=== PATIENT | male | born 1945 | race Caucasian/White ===

== ENCOUNTER → 2017-11-15 10:42 | Outpatient (CLI) | payer MEDICARE, OTHER, SELFPAY ==
--- NOTE | 2017-11-15 | DI.CT.S_ITS ---
PROCEDURE: CT CERVICAL SPINE WO CON INDICATIONS: CERVICALGIA TECHNIQUE: Noncontrast 3 mm thick sections acquired from the skull base to the T4 level. Sagittal and coronal reformats were then constructed. For radiation dose reduction, the following was used: automated exposure control, adjustment of mA and/or kV according to patient size. COMPARISON: None. FINDINGS: Image quality: Excellent. Bones: No fractures or dislocations. Visualized superior ribs are intact. There is straightening of the cervical curvature. There is trace anterolisthesis of C3 on C4, C4 on C5, trace retrolisthesis of C5 on C6, as well as fusion appearance is present at C6-7. Significant disc space narrowing is present at C4-5, C5-6. Multilevel disc bulges are present throughout the cervical spine. There is mild to moderate spinal stenosis at C3-4, moderate C4-5, mild C5-6, C6-7. Severe bilateral foraminal narrowing is present at C3-4, severe right, moderate to severe left C4-C5, severe right, moderate to severe left C5-6, moderate to severe right, moderate left C6-7. Prominent uncovertebral hypertrophy is present. Soft tissues: Prevertebral soft tissues are normal in thickness. No paravertebral hematomas. No apical pneumothoraces. IMPRESSION: 1. Significant multilevel degenerative changes as above. 2. Multilevel severe foraminal narrowing secondary to uncovertebral arthropathy. 3. Most prominent spinal stenosis is present at C4-5 secondary to disc bulge as well as trace retrolisthesis. Dictated by: Sindhu Abbasi M.D. on 11/15/2017 at 16:19 Approved by: Sindhu Abbasi M.D. on 11/15/2017 at 16:24
== END ==
PROVIDERS: Family Provider Family Medicine; Visit Provider Pharmacist
DX: M50.221 Other cervical disc displacement at C4-C5 level (principal); M48.02 Spinal stenosis, cervical region; M47.812 Spondylosis without myelopathy or radiculopathy, cervical region
CPT/HCPCS: 72125

== ENCOUNTER → 2018-03-18 10:48 | Outpatient (CLI) | payer MEDICARE, OTHER, SELFPAY ==
--- NOTE | 2018-03-18 | DI.RAD.S_ITS ---
PROCEDURE: XR CHEST 2V INDICATIONS: DYSPENEA TECHNIQUE: 2 views of the chest were acquired. COMPARISON: [facility], CT, CT CERVICAL SPINE WO CON, 11/15/2017, 11:05. [facility], CR, CHEST 2 VIEW, 09/30/2013, 16:41. [facility], CR, CHEST 1 VIEW, 12/04/2006, 2:51. FINDINGS: Surgical changes and devices: Pacemaking/defibrillation device and single lead in expected position, previously present. Lungs and pleura: No pleural effusions or pneumothorax. Lungs are clear. Mediastinum: Mediastinal contours are normal. Heart size is normal. Bones and chest wall: No suspicious bony abnormalities. Soft tissues appear unremarkable. IMPRESSION: Pacemaking/defibrillation device and lead normal, no CHF found. Mildly reduced inspiratory volume. Dictated by: Binh Meadows M.D. on 03/18/2018 at 11:21 Approved by: Binh Meadows M.D. on 03/18/2018 at 11:22
== END ==
PROVIDERS: PCP Family Medicine; Visit Provider Family Medicine
DX: R06.00 Dyspnea, unspecified (principal); Z95.810 Presence of automatic (implantable) cardiac defibrillator
CPT/HCPCS: 71046

== ENCOUNTER → 2019-04-16 10:17 | Outpatient (CLI) | payer MEDICARE, OTHER, SELFPAY ==
--- NOTE | 2019-04-16 | DI.RAD.S_ITS ---
PROCEDURE: XR CHEST 2V INDICATIONS: COUGH TECHNIQUE: 2 views of the chest were acquired. COMPARISON: [facility], , XR CHEST 2V, 03/18/2018, 11:05. [facility], , CHEST 2 VIEW, 09/30/2013, 16:41. FINDINGS: Surgical changes and devices: A pacemaking device/defibrillation device and single lead appears stable over time. Lungs and pleura: Lungs are clear considering reduced inspiratory volume on the right. No pleural effusions or pneumothorax. Mediastinum: Mediastinal contours are normal. Heart size is normal. Bones and chest wall: No suspicious bony abnormalities. Soft tissues appear unremarkable. IMPRESSION: Mild chronic elevation of the right hemidiaphragm, expected lung base atelectasis is mild. Pacemaking/defibrillation device and single lead appears normal. Source of persistent cough is not found. Dictated by: Binh Meadows M.D. on 04/16/2019 at 10:33 Approved by: Binh Meadows M.D. on 04/16/2019 at 10:34
== END ==
PROVIDERS: Family Provider Family Medicine; PCP Family Medicine; Referring Provider Family Medicine; Visit Provider Family Medicine
DX: R05 Cough (principal); R06.00 Dyspnea, unspecified; Z87.01 Personal history of pneumonia (recurrent); Z95.810 Presence of automatic (implantable) cardiac defibrillator
CPT/HCPCS: 71046

== ENCOUNTER → 2020-05-19 09:34 | Outpatient (CLI) | payer MEDICARE, OTHER, SELFPAY ==
[2020-05-19 11:17] LABS: COVID19 -Nasal RAPID Negative (Negative)
== END ==
PROVIDERS: Visit Provider Student in an Organized Health Care Education/Training Program
DX: Z20.822 Contact with and (suspected) exposure to COVID-19 (principal)
CPT/HCPCS: 87635; C9803

== ENCOUNTER 2020-05-21 15:13 | Day surgery (SDC) | payer MEDICARE, OTHER, SELFPAY ==
--- NOTE | 2020-05-21 | PATH_ITS ---
[facility] Accession Number: [id number] . 01 Material submitted: . colon - 4MM TRANSVERSE COLON POLYP . 02 Diagnosis: Transverse Colon, 4 mm Polyp, Biopsy: Tubular adenoma. MRV 05/26/2020 1127 Local . 02 Electronically signed: . Mary Dunbar MD, Pathologist NPI- [id number] . 01 Gross description: . 4MM TRANSVERSE COLON POLYP: Received in formalin is 1 fragment(s) of cohen, soft tissue measuring 0.4 x 0.4 x 0.3 cm submitted entirely in 1 cassette(s) /SUSHIL 05/25/2020 0125 Local . 02 Pathologist provided ICD-10: D12.3 . 02 CPT . 573544 Performed at: 01 [facility] [address] [facility], [place], [place] [id number] MD Markos Norris MD Phone: [phone] Performed at: 02 [facility] [address] [place], [place] [id number] MD Mary Dunbar MD Phone: [phone]
--- NOTE | 2020-05-21 12:14 | PM.HP.1 ---
History of Present Illness History of Present Illness Date Patient Seen: 05/21/20 Chief complaint: [facility] [place]ative: 73 Years Old Male seen today for consideration of a diagnostic colonoscopy. Reports that he has had diarrhea for the last 5 years. Stools are loose and runny and sometimes have streaks of blood in them. Has approximately 6 stools per day. Denies abdominal pain but does have occasional cramps. He did have a very mild normocytic/normochromic anemia that has been present on/off for the past 5 years. CBC on 09/22/2019 revealed a hemoglobin/hematocrit of 12.5/36.7. Most recent CBC on 05/06/20 was normal. There's been no family history of colon cancer or colon polyps. Reports that he is overdue for his colonoscopy, last one in 2010 significant for diverticulosis and one small polypoid lesion that was benign. Overall health issues have been stable, including no major cardiac events for at least 6 weeks. He is on Effient and aspirin for stable coronary artery disease and ischemic cardiomyopathy. He had an ICD placed in 2013. Past Medical History: PNEUMONIA, COMMUNITY ACQUIRED DERMATITIS, CONTACT History of broken nose DIABETES MELLITUS NEUROPATHY CORONARY ARTERY DISEASE CHF, SYSTOLIC, CHRONIC HYPERTENSION HYPERLIPIDEMIA SYNCOPE BACK PAIN Knee pain, right DERANGEMENT OF ANTERIOR HORN OF MEDIAL MENISCUS Foot pain, chronic Toe infection ESOPHAGEAL REFLUX GASTRIC ULCER Gout Prostatism Chronic diarrhea SLEEP APNEA COLONIC POLYPS Past Surgical History: WI x 2 with stent placement each time x 2, restenting needed (2006, 2012) Appendectomy Tonsillectomy Cholecystectomy Colonoscopy Cervical fusion Shoulder surgery, bilateral Rotator cuff surgery, bilateral knee surgery, bilateral Defibrillator Family History: Reviewed history from 12/07/2013 and no changes required: Father: age 84 - Heart Disease Mother: age 79 - Hepatitis C, Osteoporosis Siblings: Social History: Reviewed history from 12/07/2013 and no changes required: Marital Status: - Restaurant Area Director Occupation: [employer] Education: 14 years Meds Home Medications and Allergies Home Medications Medication Instructions Recorded Confirmed Type CHOLECALCIFEROL (VITAMIN D3) 1 tab PO DAILY #0 12/04/06 05/21/20 History (Vitamin D3) MULTIVITAMIN (Multivitamin 1 spray PO DAILY #0 12/04/06 05/21/20 History -) POTASSIUM CHLORIDE (K-Dur) 20 meq PO DAILY #0 12/04/06 05/21/20 History VITAMIN C - 1,000 mg PO DAILY #0 12/04/06 05/21/20 History (VITAMIN C) allopurinol 300 mg PO DAILY 05/21/20 05/21/20 History carvedilol 6.25 mg PO BID 05/21/20 05/21/20 History empagliflozin [Jardiance] 10 mg PO DAILY 05/21/20 05/21/20 History glimepiride 4 mg PO DAILY 05/21/20 05/21/20 History insulin glargine [Lantus U-100 55 unit SUBCUT BID 05/21/20 05/21/20 History Insulin] prasugrel 10 mg PO DAILY 05/21/20 05/21/20 History spironolactone 25 mg PO DAILY 05/21/20 05/21/20 History tizanidine 2 mg PO TID PRN 05/21/20 05/21/20 History Allergies Allergy/AdvReac Type Severity Reaction Status Date / Time No Known Drug Allergies Allergy Verified 05/21/20 16:10 Review of Systems Review of Systems ROS: Yes All systems reviewed with the patient and are negative except as otherwise documented Exam Narrative Exam Narrative: General: well developed, well nourished, in no acute distress, Head: normocephalic and atraumatic, Lungs: normal respiratory effort, clear bilaterally to auscultation, no wheezes rales or rhonchi. Heart: normal rate and regular rhythm, no murmurs, rubs, gallops, or clicks, Abdomen: abdomen soft and non-tender without masses, organomegaly, or abdominal wall hernias, bowel sounds positive. Skin: intact without suspicious lesions or rashes, Psych: alert and cooperative; normal mood and affect; normal attention span and concentration; cognition, remote and recent memory appear to be intact, Assessment & Plan Assessment & Plan narrative: 1. Chronic diarrhea 2. Blood in stool, occult 3. Screening for colon cancer 4. Coronary artery disease, on anticoagulants Plan for colonoscopy. The nature and character of the procedure as well as anticipated results were discussed. The possibility of not completing the procedure was also discussed. Possible complications including aspiration pneumonia, bleeding, perforation and reaction to medications either for sedation or preparation and missed lesions were discussed. Questions were answered and proceeding to the colonoscopy was elected. Informed consent signed. Patient has been cleared by Dr. Randy Chin, cardiology, to stop his effient and aspirin 7 days prior to procedure with no bridging. Due to patient's comorbidities and ASA 3 status, will consult MD anesthesia for this procedure. I sincerely appreciate the referral allowing me to participate in this patient's care. Please contact me with any questions or concerns.
--- NOTE | 2020-05-21 12:21 | PM.OP.ENDO ---
Operative Date/Time/Diagnoses Date of procedure: 05/21/20 Procedure Notes SCOAP/Timeout: 4:31 p.m. Procedure in detail: ENDOSCOPIST: Fabiola Becerril MD Anesthesiologist: Dr. Arana Sedation start time: 4:32 p.m. Sedation end time: 4:44 p.m. PROCEDURE: Colonoscopy with biopsy INDICATIONS: 1. Chronic diarrhea 2. Blood in stool, occult 3. Colon cancer screening 4. History of coronary artery disease, on anticoagulation MEDICATION: Levsin 0.125 mg sublingual, incremental doses of Versed and fentanyl until appropriate level sedation achieved. ASA CLASS: 3 CECAL WITHDRAWAL TIME: 12 minutes COMPLICATIONS: None. EXTENT OF PROCEDURE: Cecum. QUALITY OF PREP: Good with portions of liquid stool. PROCEDURE: Prior to insertion of the colonoscope, a digital rectal examination was accomplished with circumferential palpation of the distal rectal mucosa without significant findings being noted. The high-definition colonoscope was passed into the rectum in the usual fashion and advanced over to the cecum without difficulty. The ileocecal valve, appendiceal stoma, and medial wall all could be inspected and no abnormalities were seen. ASCENDING COLON: As the colonoscope was withdrawn, care was taken to expose and inspect the haustral folds and minor diverticulosis was noted. HEPATIC FLEXURE: Normal, no polyps, diverticula or other abnormalities. TRANSVERSE COLON: 4 mm polyp x1, removed with cold biopsy forceps. Otherwise, normal, no diverticula or other abnormalities. DESCENDING COLON: Moderate diverticulosis,, normal, no polyps or other abnormalities. SIGMOID COLON: Moderate diverticulosis,, normal, no polyps or other abnormalities. RECTUM: Normal. J maneuver was produced. There was no significant perianal disease. The J maneuver was broken. The remainder of the rectum was inspected and there was no external hemorrhoid disease. The scope was withdrawn. IMPRESSION: 1. Transverse polyp x1, 4 mm, removed with cold biopsy forceps 2. Diverticulosis, pancolonic PLAN: 1. Follow-up in clinic status post pathology results. The possibility of a missed lesion including a malignancy has been discussed with the patient previously. Potential alarm symptoms have been discussed and should be reported immediately.
[2020-05-21 15:40] VITALS: BMI 32.2
[2020-05-21] MEDS: HYOSCYAMINE 0.125 MG TABLET PO (16:16)
[2020-05-21] MEDS: LACTATED RINGERS 1,000 ML 200 ML IV (16:17)
[2020-05-21 17:05] VITALS: BP 121/63; BP 96/52; PULSE 74; PULSE 75; RESP 16; RESP 20; TEMP 36.2; O2SAT 96
[2020-05-21 17:13] VITALS: BP 121/68; PULSE 74; RESP 14; O2SAT 97
[2020-05-21 17:18] VITALS: BP 129/72; PULSE 76; RESP 14; O2SAT 97
[2020-05-21 17:20] VITALS: BP 136/68; PULSE 72; RESP 16; TEMP 36.2; O2SAT 97
== END 2020-05-21 17:37 | disposition home or self-care (01) ==
PROVIDERS: Referring Provider Student in an Organized Health Care Education/Training Program; Visit Provider Student in an Organized Health Care Education/Training Program
PROC: 0DJD8ZZ Inspection of Lower Intestinal Tract, Via Natural or Artificial Opening Endoscopic (ICD-10-PCS; CPT 45378; principal; 2020-05-21 16:15)
DX: K92.1 Melena (principal); K52.9 Noninfective gastroenteritis and colitis, unspecified; E11.41 Type 2 diabetes mellitus with diabetic mononeuropathy; G47.33 Obstructive sleep apnea (adult) (pediatric); E66.9 Obesity, unspecified; I25.5 Ischemic cardiomyopathy; I10 Essential (primary) hypertension; I25.10 Atherosclerotic heart disease of native coronary artery without angina pectoris; Z79.01 Long term (current) use of anticoagulants; Z79.4 Long term (current) use of insulin; Z95.0 Presence of cardiac pacemaker; K57.30 Diverticulosis of large intestine without perforation or abscess without bleeding; D12.3 Benign neoplasm of transverse colon
CPT/HCPCS: 45380

== ENCOUNTER → 2020-07-01 09:10 | Outpatient (CLI) | payer MEDICARE, OTHER, SELFPAY ==
--- NOTE | 2020-07-01 | DI.CT.S_ITS ---
PROCEDURE: CT LUMBAR SPINE WO CON INDICATIONS: STENOSIS TECHNIQUE: Noncontrast 3 mm thick sections acquired from the T12 level to the sacrum. Sagittal and coronal reformats were constructed. For radiation dose reduction, the following was used: automated exposure control. COMPARISON: [facility], CR, XR LUMBAR SPINE MIN 4V, 07/01/2020, 9:21. [facility], CT, L-SPINE WITHOUT CONTRAST, 02/08/2016, 10:10. Lumbar MRI examinations, 12/30/2012 and 09/17/2008. FINDINGS: Image quality: Excellent. Bones: No acute vertebral body compression fractures. No suspicious lytic or blastic bony lesions. No pars defects. Mild levoconvex scoliotic curvature is noted. Mild retrolisthesis is seen at the L3-L4 level. This patient has transitional lumbar anatomy. For the purposes of this examination, the level with the most inferior rudimentary disc is considered to be L5-S1. By this numbering scheme, the L5 level is transitional and highly sacralized. Also by this numbering scheme, no ribs are seen associated with the T12 level. This numbering scheme is chosen to remain consistent with prior reports. T12-L1: The disc height is relatively well preserved. Bridging anterior osteophytes are seen. Calcification can be seen within the disc level itself. No significant neural foraminal or central canal narrowing can be seen. When comparison is made with the prior examination, these findings are similar. L1-L2: There is mild loss of disc height. Mild to moderate disc bulge is seen. Bridging endplate osteophytes are seen, which can be seen anteriorly as well as on the left side. There is mild bilateral neural foraminal narrowing seen. Mild central canal narrowing is seen. When comparison is made with the prior examination, these findings are similar. L2-L3: At least moderate loss of disc height is seen. Bridging endplate osteophytes are seen, which are most prominent on the right side. No significant neural foraminal or central canal narrowing can be seen. Stable from the prior study. L3-L4: Mild loss of disc height is seen. Bridging endplate osteophytes are seen anteriorly as well as on the left and right sides. Bridging endplate osteophytes can also be seen posteriorly. At least moderate disc bulge is seen, which is eccentric to the right side. There is moderate to severe bilateral neural foraminal narrowing seen, right worse than left. At least moderate central canal narrowing is seen at this level. Compared to the 2016 images, these imaging findings are similar. L4-L5: The disc height is well preserved. Moderate disc bulge is seen, which is eccentric to the right. Partially bridging endplate osteophytes are seen on the right and on the left. There is moderate to prominent right-sided and at least moderate left-sided facet hypertrophy seen. There is moderate to severe bilateral neural foraminal narrowing seen, right worse than left. At least moderate central canal narrowing can be seen at this level. These imaging findings are similar to the prior 2016 images. L5-S1: There is a transitional, rudimentary disc seen at this level. Mild to moderate facet hypertrophy is seen. There is mild right-sided and moderate left-sided neural foraminal narrowing seen. No significant central canal narrowing is seen. Stable from the prior study. Soft tissues: No retroperitoneal masses or hematomas. Visualized aorta is normal in caliber. Atherosclerotic calcification is noted. AICD leads are seen on the dental front office assistant image. Cholecystectomy clips are seen. A water density cyst measuring 3.5 cm can be seen along the posterior medial aspect of the right kidney. IMPRESSION: Multiple levels of degenerative change are seen, which are similar to the prior 2016 images. Incidental note is made of: Transitional lumbar anatomy Water density right renal cyst AICD leads Cholecystectomy Dictated by: Los Allan M.D. on 07/01/2020 at 9:57 Transcribed by: CALLY on 07/01/2020 at 10:01 Approved by: Los Allan M.D. on 07/01/2020 at 10:25
--- NOTE | 2020-07-01 | DI.RAD.S_ITS ---
PROCEDURE: XR LUMBAR SPINE MIN 4V INDICATIONS: LOW BACK PAIN TECHNIQUE: 4 views of the lumbar spine were acquired, including flexion and extension views. COMPARISON: [facility], MR, L-SPINE WITHOUT CONTRAST, 12/30/2012, 7:59. [facility], MR, L-SPINE WITHOUT CONTRAST, 09/17/2008, 7:37. [facility], CT, CT LUMBAR SPINE WO CON, 07/01/2020, 9:26. [facility], CT, L-SPINE WITHOUT CONTRAST, 02/08/2016, 10:10. FINDINGS: Bones: This patient has transitional lumbar anatomy. For the purposes of this examination, the level with the most inferior rudimentary disc is considered to be L5-S1. By this numbering scheme, the L5 level is transitional and highly sacralized. By this numbering scheme, no definite ribs are seen associated with the L1 level. This numbering scheme is chosen to remain consistent with the prior reports. 5 nonrib-bearing vertebrae are present. No vertebral body compression fractures. No suspicious bony lesions. Minimal to mild levoconvex scoliotic curvature is seen. On the neutral image, there is mild retrolisthesis seen at L3-L4 and L5-S1. On flexion and extension views, there is highly limited range of motion observed, without abnormal subluxation. There is moderate disc space narrowing seen at L2-L3 and L3-L4. A transitional, rudimentary disc can be seen at L5-S1. There are bridging anterior osteophytes seen at least at T10-T11, T11-T12, T12-L1, and at L2-L3. Bridging endplate osteophytes are seen on the left side at T12-L1 and at L1-L2. Bridging endplate osteophytes are seen on the right and on the left at L2-L3 and L3-L4. Lower lumbar spine facet arthropathy is seen. Soft tissues: Overlying bowel gas pattern is normal. No suspicious soft tissue calcifications. Atherosclerotic calcification is noted. Cholecystectomy clips are seen. IMPRESSION: Highly limited range of motion, without abnormal subluxation. Transitional lumbar anatomy. Multiple levels of degenerative change can be seen by plain film. Dictated by: Los Allan M.D. on 07/01/2020 at 10:12 Approved by: Los Allan M.D. on 07/01/2020 at 10:17
== END ==
PROVIDERS: PCP Family Medicine; Referring Provider Orthopaedic Surgery Orthopaedic Surgery of the Spine; Visit Provider Orthopaedic Surgery Orthopaedic Surgery of the Spine
DX: M51.36 Other intervertebral disc degeneration, lumbar region (principal); M48.061 Spinal stenosis, lumbar region without neurogenic claudication; M47.816 Spondylosis without myelopathy or radiculopathy, lumbar region; M54.5 Low back pain
CPT/HCPCS: 72110; 72131

== ENCOUNTER → 2020-09-29 09:11 | Outpatient (CLI) | payer MEDICARE, OTHER, SELFPAY ==
--- NOTE | 2020-09-29 | DI.NM.S_ITS ---
PROCEDURE: NM BONE SPECT RADIOPHARMACEUTICAL: 20.8 mCi Tc-99m MDP IV. INDICATIONS: Other intervertebral disc degeneration, lumbar region TECHNIQUE: Delayed bone scintigrams were obtained of the region of interest 3-4 hours after intravenous administration of Tc-99m MDP. Additional tomographic (SPECT) imaging was performed and displayed in axial, coronal, and sagittal planes. COMPARISON: MR, L-SPINE WITHOUT CONTRAST, 12/30/2012, 7:59. CT, L-SPINE WITHOUT CONTRAST, 02/08/2016, 10:10. [facility], CT, CT LUMBAR SPINE WO CON, 07/01/2020, 9:26. FINDINGS: Delayed planar images, as well as SPECT images of the lumbar spine were obtained. There are foci of increased uptake in the lower costovertebral joints bilaterally, likely secondary to consistent with costovertebral arthritis. Low-level increased activity is seen in lumbar spine, most pronounced at the L1-L2 and L2-L3, consistent with degenerative disc and facet disease. Increased periarticular activity at the SI joints bilaterally is consistent with osteoarthritic change. IMPRESSION: 1. 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 2. Degenerative disc and facet disease in lumbar spine, most pronounced at L1-L2 and L2-L3. Dictated by: Nisha Macario M.D. on 09/29/2020 at 16:15 Approved by: Nisha Macario M.D. on 09/29/2020 at 17:34
== END ==
PROVIDERS: PCP Family Medicine; Referring Provider Orthopaedic Surgery Orthopaedic Surgery of the Spine; Visit Provider Orthopaedic Surgery Orthopaedic Surgery of the Spine
DX: M51.36 Other intervertebral disc degeneration, lumbar region (principal); M47.896 Other spondylosis, lumbar region
CPT/HCPCS: 78305; A9503

== ENCOUNTER 2021-04-08 08:33 | Outpatient (CLI) | payer MEDICARE, OTHER, SELFPAY ==
--- NOTE | 2021-04-08 | DI.CT.S_ITS ---
PROCEDURE: CT LUMBAR SPINE W CON INDICATIONS: pain TECHNIQUE: After the intrathecal administration of 15 mL intrathecal contrast, 3 mm thick sections acquired from T12 to the sacrum. Sagittal and coronal reformats were then constructed. For radiation dose reduction, the following was used: automated exposure control. COMPARISON: [facility], CT, CT THORACIC SPINE W CON, 04/08/2021, 9:21. [facility], RF, [place] INJECT SPINE FOR CT MYELO, 04/08/2021, 9:55. FINDINGS: Image quality: Excellent. Bones: Vertebral body height, alignment and bone mineralization within normal limits. Transitional anatomy noted. There is lumbarization of the S1 vertebral body. There are 12 pairs of ribs associated with the thoracic vertebrae, and 5 lumbar type vertebrae. This numbering system is different from the prior exams, but consistent with the patient's anatomy. There is partial subdural collection of contrast extending from through L3 without significant compression of the nerve roots. Conus terminates at the L1-2 level Soft tissues: No retroperitoneal masses. Visualized aorta demonstrates normal caliber. T12-L1: Disc space narrowing present. No central or foraminal stenosis. No disc bulge. L1-L2: Disc space narrowing and anterior osteophytes present. No disc bulge, central or foraminal stenosis. L2-L3: Disc space narrowing with circumferential disc bulge and anterior osteophytes noted. Mild central stenosis and moderate bilateral foraminal stenosis present. L3-L4: Disc space narrowing with circumferential disc bulge noted without central stenosis. No foraminal stenosis. L4-L5: Disc space narrowing with circumferential disc bulge and hypertrophic facet joints combined with ligamentum flavum laxity to result in effacement of the right lateral recess. Mild central stenosis and severe right foraminal stenosis. Moderate left foraminal stenosis. L5-S1: Disc space narrowing with circumferential disc bulge, hypertrophic facet joints and ligamentum flavum laxity results in moderate central stenosis. There is effacement of both lateral recesses as well as severe right and left foraminal stenosis. Miscellaneous: Nerve roots appear unremarkable throughout. No nerve root clumping to suggest arachnoiditis. IMPRESSION: 1. Transitional anatomy. There are 12 thoracic vertebrae associated with ribs and 5 lumbar type vertebral bodies. There is lumbarization of the S1 vertebral body. Please note, this numbering convention is different than the prior exams, but consistent with patient's anatomy. 2. Multilevel degenerative disc disease and arthropathy results in moderate central stenosis at L5-S1 and severe foraminal stenosis on the right at L4-5 and bilaterally at L5-S1 Approved by: Randall Cazares M.D. on 04/08/2021 at 16:05
--- NOTE | 2021-04-08 | DI.RAD.S_ITS ---
PROCEDURE: [place] INJECT SPINE FOR CT MYELO INDICATIONS: SPONDYLITIS COMPARISON: None. TECHNIQUE: The indications, alternatives, benefits, risks and complications of the procedure were explained to the patient. Written informed consent was obtained and placed in the chart. The patient was placed in a prone position on the fluoroscopy table, and a level was chosen for percutaneous access under fluoroscopic guidance. The skin was prepped and draped in a sterile fashion. After local anaesthetic, a spinal needle was then used to enter the intrathecal space, with return of clear cerebrospinal fluid. 1 mL of Isovue M-300 were administered intrathecally under fluoroscopic visualization. The needle was then withdrawn, and a bandage applied to the puncture site. Fluoroscopic spot films were then acquired in various positions. FINDINGS: Standing frontal, lateral, and oblique views demonstrate no significant central canal stenoses. Access level: L2-L3 Medications: 1% lidocaine for local anaesthesia. Complications: None. Patient was transferred to CT for subsequent CT myelogram. IMPRESSION: Successful fluoroscopically guided administration of iodinated contrast into the lumbar spine central canal for CT myelogram. Dictated by: Jackeline Loving MD, PhD on 04/08/2021 at 17:08 Approved by: Jackeline Loving MD, PhD on 04/08/2021 at 17:08
[2021-04-08 08:10] VITALS: BP 147/77; PULSE 74; RESP 20; TEMP 36.4; O2SAT 99; BMI 26.7
[2021-04-08 09:39] VITALS: BP 127/69; PULSE 68; RESP 11; TEMP 36.7; O2SAT 99
--- NOTE | 2021-04-08 09:42 | DI.CT.S_ITS ---
PROCEDURE: CT THORACIC SPINE W CON INDICATIONS: pain TECHNIQUE: After the administration of 10 mL intrathecal contrast, 3 mm thick sections acquired through the region of interest in the thoracic spine. Sagittal and coronal reformats were then constructed. For radiation dose reduction, the following was used: automated exposure control. COMPARISON: None. FINDINGS: Vertebral body height, alignment and interspacing is well maintained. Normal bone mineralization present. No fracture or malalignment. Flowing fused anterior osteophytes noted in the lower thoracic spine could reflect diffuse idiopathic skeletal hyperostosis Paraspinal soft tissues are unremarkable. Incidental note is made of cholecystectomy clips. At T5-6 and T6-7, small paracentral right osteophytes result in mild central stenosis without cord deformation. At T7-8, focal central osteophyte indents the ventral surface of the thecal sac results in mild central stenosis. No cord deformation. No foraminal stenosis. At the remaining levels, no central or foraminal stenosis. IMPRESSION: 1. Mild degenerative disc disease results in mild central stenosis at T5-6, T6-7 and T7-8. Approved by: Randall Cazares M.D. on 04/08/2021 at 15:44
--- NOTE | 2021-04-08 09:44 | SUR.PHASEI ---
Received patient from CT scan and s/p myleogram; GCS 15; lying supine as instructed; c/o low back pain 6/10; no numbness or tingling per patient. VSS. Apple juice provided; call light in reach. Advised patient that he would need to lie flat for 4 hours until discharge at 1330. V/U.
--- NOTE | 2021-04-08 09:45 | DI.CT.S_ITS ---
PROCEDURE: CT CERVIAL SPINE W CON INDICATIONS: pain TECHNIQUE: After the administration of 10mL intrathecal contrast, 3 mm thick sections acquired from the skull base to the T1 level. Sagittal and coronal reformats were then constructed. For radiation dose reduction, the following was used: automated exposure control, adjustment of mA and/or kV according to patient size. COMPARISON: None. FINDINGS: Image quality: Excellent. Bones and alignment: Vertebral body heights and alignment is within normal limits. Bone mineralization and craniovertebral relationships are normal. There is healed interbody fusion at C6-7 without instrumentation. Soft tissues: No paraspinal masses. Prevertebral soft tissues are normal in thickness. Visualized neck vasculature appears normal in size. C2-C3: Disc space narrowing with posterior osteophyte results in mild central stenosis. No foraminal stenosis. Facet ankylosis noted on the left. C3-C4: Disc space narrowing posterior disc osteophyte complex and hypertrophic facet joints results in mild central stenosis without cord deformation.. Moderate bilateral foraminal stenosis. C4-C5: Mild disc space narrowing with posterior disc osteophyte complex and hypertrophic facet joints noted. Mild bilateral foraminal stenosis. C5-C6: A disc space narrowing posterior osteophyte is present with mild central stenosis. No foraminal stenosis. C6-C7: Interbody fusion present. No central or some foraminal stenosis. C7-T1: Disc height is maintained. No central or foraminal stenosis. Miscellaneous: Visualized intracranial structures appear unremarkable. IMPRESSION: Multilevel degenerative disc disease and arthropathy results in varying degrees of central and foraminal stenosis including moderate bilateral foraminal stenosis at C3-4 and multilevel mild stenosis central stenosis without cord deformation. Approved by: Randall Cazares M.D. on 04/08/2021 at 16:21
[2021-04-08 10:35] LABS: Hematocrit 42.9 % (41-53); Hemoglobin 14.4 g/dL (13.5-17.5); Platelet Count 261 X10^3/uL (150-400)
[2021-04-08 10:36] LABS: INR 0.9 (0.9-1.3); PTT Partial Thromboplastin Tim 30 SECONDS (26.4-36.2); Prothrombin Time 10.4 SECONDS (10.1-12.7)
[2021-04-08 10:46] VITALS: BP 106/59; PULSE 69; RESP 16; O2SAT 98
[2021-04-08 11:52] VITALS: BP 116/72; PULSE 65; RESP 11; O2SAT 97
--- NOTE | 2021-04-08 11:53 | SUR.PHASEII ---
Patient resting quietly, still supine; vss; blood sugar 121. No needs voiced at this time.
[2021-04-08 12:48] VITALS: BP 126/70; PULSE 59; RESP 20; TEMP 36.4; O2SAT 98
--- NOTE | 2021-04-08 12:49 | SUR.PHASEII ---
Patient remains stable; vss; pain 4/10 with movement; no needs voiced at this time; denies any numbness or tingling.
[2021-04-08 13:30] VITALS: BP 120/71; PULSE 69; RESP 16; TEMP 36.4; O2SAT 99
== END 2021-04-08 13:45 | disposition home or self-care (01) ==
LOC: OR 08:35
PROVIDERS: PCP Family Medicine; Referring Provider Orthopaedic Surgery; Visit Provider Orthopaedic Surgery
DX: M48.062 Spinal stenosis, lumbar region with neurogenic claudication (principal); M45.7 Ankylosing spondylitis of lumbosacral region; M51.36 Other intervertebral disc degeneration, lumbar region; Z98.1 Arthrodesis status; G97.1 Other reaction to spinal and lumbar puncture; M46.02 Spinal enthesopathy, cervical region
CPT/HCPCS: 36415; 62284; 72126; 72129; 72132; 77003; 82962; 85014; 85018; 85049; 85610; 85730

== ENCOUNTER → 2021-09-27 12:09 | Outpatient (CLI) | payer MEDICARE, OTHER, SELFPAY ==
--- NOTE | 2021-09-27 12:12 | DI.US.S_ITS ---
PROCEDURE: US ABDOMEN LIMITED INDICATIONS: RUQ PAINLESS BULGE X 2 YEARS TECHNIQUE: Real-time scanning was performed of the abdominal and retroperitoneal organs, with image documentation. COMPARISON: None. FINDINGS: Liver: The liver measures 18.2 cm and demonstrates markedly increased echogenicity. Miscellaneous: No free abdominal fluid. There is no right upper quadrant abdominal wall hernia or other abnormality in the region palpated by the patient. IMPRESSION: 1. Increased hepatic echogenicity noted likely related to fatty infiltration of the liver but other sources of hepatocellular disease cannot be excluded. 2. No sonographic evidence for abdominal wall hernia or other mass. Dictated by: Delilah Rivera M.D. on 09/27/2021 at 16:08 Approved by: Delilah Rivera M.D. on 09/27/2021 at 16:10
== END ==
PROVIDERS: PCP Family Medicine; Referring Provider Family Medicine; Visit Provider Family Medicine
DX: K43.9 Ventral hernia without obstruction or gangrene (principal); R10.31 Right lower quadrant pain
CPT/HCPCS: 76705

== ENCOUNTER → 2021-10-06 09:06 | Outpatient (CLI) | payer MEDICARE, OTHER, SELFPAY ==
--- NOTE | 2021-10-06 09:08 | DI.US.S_ITS ---
PROCEDURE: US ARTERIAL DUPLEX LE BI INDICATIONS: Hyperlipidemia, unspecified TECHNIQUE: Color and pulse Doppler interrogation was performed of both lower extremity arterial systems, with image documentation. COMPARISON: None. FINDINGS: Right lower extremity: Common femoral artery: 112 cm/sec, with triphasic flow. Deep femoral artery: 59 cm/sec, with triphasic flow. Proximal superficial femoral artery: 94 cm/sec, with triphasic flow. Mid superficial femoral artery: 80 cm/sec, with triphasic flow. Distal superficial femoral artery: 73 cm/sec, with triphasic flow. Popliteal artery: 56 cm/sec, with triphasic flow. Posterior tibial artery: 123 cm/sec, with triphasic flow. Anterior tibial artery/dorsalis pedis: 94 cm/sec, with triphasic flow. Law-scale imaging description: No hemodynamically significant stenosis. Left lower extremity: Common femoral artery: 104 cm/sec, with triphasic flow. Deep femoral artery: 74 cm/sec, with triphasic flow. Proximal superficial femoral artery: 87 cm/sec, with triphasic flow. Mid superficial femoral artery: 74 cm/sec, with triphasic flow. Distal superficial femoral artery: 74 cm/sec, with triphasic flow. Popliteal artery: 50 cm/sec, with triphasic flow. Posterior tibial artery: 123 cm/sec, with triphasic flow. Anterior tibial artery/dorsalis pedis: A 38 cm/sec, with triphasic flow. Law-scale imaging description: No hemodynamically significant stenosis. IMPRESSION: No hemodynamically significant stenosis of the bilateral lower extremities. Dictated by: Delilah Rivera M.D. on 10/06/2021 at 14:15 Approved by: Delilah Rivera M.D. on 10/06/2021 at 14:19
== END ==
PROVIDERS: PCP Family Medicine; Referring Provider Orthopaedic Surgery; Visit Provider Orthopaedic Surgery
DX: E78.5 Hyperlipidemia, unspecified (principal)
CPT/HCPCS: 93925

== ENCOUNTER → 2021-11-19 10:58 | Outpatient (CLI) | payer MEDICARE, OTHER, SELFPAY ==
--- NOTE | 2021-11-19 | DI.RAD.S_ITS ---
PROCEDURE: XR LUMBAR SPINE MIN 4V INDICATIONS: Low Back Pain TECHNIQUE: 5 views of the lumbar spine were acquired, including bilateral oblique views. COMPARISON: [facility], CR, XR LUMBAR SPINE MIN 4V, 07/01/2020, 9:21. FINDINGS: Bones: This patient has transitional lumbar anatomy. For the purposes of this examination, the level with the last disc space is considered to be L5-S1. By this numbering scheme, no definite ribs are seen associated with the T12 level. The L5 level is transitional and is highly sacralized. No vertebral body compression fractures. No suspicious bony lesions. Minimal levoconvex scoliotic curvature is seen. There is minimal retrolisthesis seen at the L3-L4 level. There is moderate disc space narrowing seen at L2-L3, with [id number] disc space narrowing at L3-L4 and at L4-L5. Moderate to severe disc space narrowing can be seen at L5-S1. Lower lumbar spine facet arthropathy is seen. Numerous levels of bridging endplate osteophytes can be seen. Soft tissues: Overlying bowel gas pattern is normal. No suspicious soft tissue calcifications. An AICD lead can be seen. Cholecystectomy clips are seen. Oblique images: No pars defects. IMPRESSION: Lumbar spine degenerative changes are seen, which are overall worst at L5-S1. Transitional lumbar anatomy. Dictated by: Los Allan M.D. on 11/19/2021 at 18:16 Approved by: Los Allan M.D. on 11/19/2021 at 18:18
== END ==
PROVIDERS: PCP Family Medicine; Referring Provider Orthopaedic Surgery; Visit Provider Orthopaedic Surgery
DX: M47.26 Other spondylosis with radiculopathy, lumbar region (principal); M48.062 Spinal stenosis, lumbar region with neurogenic claudication; M54.50 Low back pain, unspecified; G89.29 Other chronic pain
CPT/HCPCS: 72110

== ENCOUNTER → 2022-03-02 09:43 | Outpatient (ROUT) | payer MEDICARE, OTHER, SELFPAY ==
[2022-03-02 09:51] LABS: Prothrombin Time 11.6 SECONDS (10.1-12.7)
[2022-03-02 09:53] LABS: PTT Partial Thromboplastin Tim 32 SECONDS (26-36)
== END ==
PROVIDERS: PCP Family Medicine; Visit Provider Family Medicine
DX: I25.2 Old myocardial infarction (principal)
CPT/HCPCS: 85610; 85730

== ENCOUNTER → 2022-03-02 13:49 | Outpatient (CLI) | payer MEDICARE, OTHER, SELFPAY ==
--- NOTE | 2022-03-02 | DI.RAD.S_ITS ---
PROCEDURE: XR CHEST 2V INDICATIONS: Chronic systolic (congestive) heart failure TECHNIQUE: 2 views of the chest were acquired. COMPARISON: [facility], , XR CHEST 2V, 04/16/2019, 10:12. FINDINGS: Surgical changes and devices: There is a cardiac pacemaker/defibrillator. Lungs and pleura: Chronic right hemidiaphragm elevation. Lungs are clear. No pleural effusions or pneumothorax. Mediastinum: Mediastinal contours are normal. Heart size is normal. Bones and chest wall: No suspicious bony abnormalities. Soft tissues appear unremarkable. IMPRESSION: No acute cardiopulmonary disease. Dictated by: Nisha Macario M.D. on 03/02/2022 at 17:47 Approved by: Nisha Macario M.D. on 03/02/2022 at 17:48
== END ==
PROVIDERS: PCP Family Medicine; Referring Provider Family Medicine; Visit Provider Family Medicine
DX: I50.22 Chronic systolic (congestive) heart failure (principal); I25.2 Old myocardial infarction
CPT/HCPCS: 71046; 85610; 85730

== ENCOUNTER → 2022-04-12 11:28 | Outpatient (CLI) | payer MEDICARE, OTHER, SELFPAY ==
--- NOTE | 2022-04-12 | DI.RAD.S_ITS ---
PROCEDURE: XR LUMBAR SPINE MIN 4V INDICATIONS: Spinal stenosis, lumbar region with neurogenic claudication TECHNIQUE: 5 views of the lumbar spine acquired, including flexion and extension views. COMPARISON: [facility], CR, XR LUMBAR SPINE MIN 4V, 11/19/2021, 11:12. FINDINGS: Bones: 5 nonrib-bearing vertebrae are present. Patient is status post interval fusion of lumbar spine from T12 through L5 level with intervertebral spacer placement at L3-4 level. Loss of disc height and degenerative endplate changes are noted throughout lumbar spine. No acute vertebral body compression fractures. There is straightening of normal lumbar lordosis. 6 mm retrolisthesis of L1 on L2 is seen. No gross hardware loosening or failure. No suspicious bony lesions. Soft tissues: Overlying bowel gas pattern is normal. No suspicious soft tissue calcifications. Flexion/extension: There is decreased range of motion, with preserved lumbar spine alignment. IMPRESSION: 1. Extensive fusion of thoracolumbar spine at T12 through L5 levels. Grade 1 retrolisthesis of L1 on L2. No acute compression fracture. Degenerative disc disease throughout lumbar spine. 2. Decreased range of motion on lateral flexion and extension views with preserved lumbar spine alignment. Dictated by: Chase Vallejo M.D. on 04/12/2022 at 13:03 Approved by: Chase Vallejo M.D. on 04/12/2022 at 13:06
== END ==
PROVIDERS: PCP Family Medicine; Referring Provider Nurse Practitioner; Visit Provider Nurse Practitioner
DX: M47.26 Other spondylosis with radiculopathy, lumbar region (principal); M51.16 Intervertebral disc disorders with radiculopathy, lumbar region; M48.062 Spinal stenosis, lumbar region with neurogenic claudication; Z98.1 Arthrodesis status
CPT/HCPCS: 72110

== ENCOUNTER → 2022-04-13 12:55 | Outpatient (CLI) | payer MEDICARE, OTHER, SELFPAY | PROVIDERS: PCP Family Medicine; Referring Provider Family Medicine; Visit Provider Surgery | DX: E11.628 Type 2 diabetes mellitus with other skin complications (principal); L89.323 Pressure ulcer of left buttock, stage 3 | CPT/HCPCS: 97597; 99203; 99212 ==

== ENCOUNTER → 2022-04-20 13:20 | Outpatient (CLI) | payer MEDICARE, OTHER, SELFPAY | PROVIDERS: PCP Family Medicine; Referring Provider Family Medicine; Visit Provider Surgery | DX: L89.323 Pressure ulcer of left buttock, stage 3 (principal); E11.628 Type 2 diabetes mellitus with other skin complications | CPT/HCPCS: 97597 ==

== ENCOUNTER 2022-04-25 16:36 | Emergency (ER) | payer MEDICARE, OTHER, SELFPAY ==
[2022-04-25] VITALS (21 sets, daily range): BP systolic 113–158; BP diastolic 54–75; PULSE 59–71; RESP 11–25; TEMP 36.2; O2SAT 94–100; BMI 28.2
[2022-04-25 17:03] LABS: Add Manual Diff / Slide Review NO; Basophils Absolute Auto 100 /uL (0-100); Basophils Percent Auto 0.8 % (0-2); Eosinophils Absolute Auto 400 /uL (0-450); Eosinophils Percent Auto 4.5 % (2-4); Hemoglobin 11.9 g/dL (13.5-17.5); Lymphocytes Absolute Auto 3200 /uL (1100-4500); Lymphocytes Percent Auto 35.2 % (25-40); Mean Corpuscular HGB Conc 32.3 % (30-36); Mean Corpuscular Hemoglobin 27.2 PG (26-34); Mean Corpuscular Volume 84.1 fL (80-100); Monocytes Absolute Auto 600 /uL (0-900); Monocytes Percent Auto 6.7 % (3-14); Neutrophils Absolute Auto 4800 /uL (1500-7000); Neutrophils Percent Auto 52.8 % (50-75); Platelet Count 275 X10^3/uL (150-400); Red Cell Distribution Width 14.7 % (11.6-14.8); White Blood Cell Count 9.1 X10^3/uL (4.5-11.0)
[2022-04-25 17:18] LABS: Alanine Aminotransferase 16 IU/L (<50); Albumin 4.3 g/dL (3.5-5.0); Albumin Globulin Ratio 1.2 (1.0-2.8); Alkaline Phosphatase 93 U/L (38-126); Aspartate Aminotransferase 22 IU/L (17-59); BUN Creatinine Ratio 14.8 (6-22); Bilirubin Total 0.7 mg/dL (0.2-1.3); Blood Urea Nitrogen 19 mg/dL (9-20); Calcium 9.3 mg/dL (8.4-10.2); Carbon Dioxide 25 mmol/L (22-32); Chloride 101 mmol/L (98-107); Estimated Glomerular Filt Rate 58 mL/min (>60); Globulin 3.7 g/dL (1.7-4.1); Glucose 138 mg/dL (80-110); HEMOLYSIS < 15 (0-50); Potassium 4.5 mmol/L (3.4-5.1); Sodium 140 mmol/L (137-145)
[2022-04-25] MEDS: MORPHINE 2 MG/ML INJ IV (18:06)
--- NOTE | 2022-04-25 18:25 | ED.FALL ---
HPI - Fall General Chief Complaint: Trauma Stated Complaint: GLF Time Seen by Provider: 04/25/22 17:44 Source: patient and EMS Mode of arrival: EMS History of Present Illness HPI Narrative: Patient is a 76-year-old with recent lumbar fusion, CHF with defibrillator, diabetes, hyperlipidemia, presenting today after a ground level fall. He reports that he had surgery on his back in February she has been wearing a brace he has been ambulating with a walker. He went out on a trail today when he tripped his left foot he could not quite get his balance and fell over to the left side landing on his left shoulder. He denies any hip pain. Now reporting significant back spasm. No head injury no anticoagulation. Denies any neck pain. Related Data Home Medications Medication Instructions Recorded Confirmed CHOLECALCIFEROL (VITAMIN D3) 1 tab PO DAILY ##0 12/04/06 04/08/21 (Vitamin D3) MULTIVITAMIN (Multivitamin 1 spray PO DAILY ##0 12/04/06 04/08/21 -) VITAMIN C - 1,000 mg PO DAILY ##0 12/04/06 04/08/21 (VITAMIN C) allopurinol 300 mg tablet 300 mg PO DAILY 05/21/20 04/08/21 carvedilol 6.25 mg tablet 6.25 mg PO BID 05/21/20 04/08/21 empagliflozin 10 mg tablet 10 mg PO DAILY 05/21/20 04/08/21 (Jardiance) glimepiride 4 mg tablet 4 mg PO DAILY 05/21/20 04/08/21 insulin glargine 100 unit/mL 40 unit SUBCUT BID 05/21/20 04/08/21 subcutaneous cartridge spironolactone 25 mg tablet 25 mg PO DAILY 05/21/20 04/08/21 furosemide 20 mg tablet 20 mg PO DAILY 04/08/21 04/08/21 losartan 25 mg tablet 12.5 mg PO DAILY 04/08/21 04/08/21 metformin 500 mg tablet 500 mg PO BID 04/08/21 04/08/21 Allergies Allergy/AdvReac Type Severity Reaction Status Date / Time No Known Drug Allergies Allergy Unverified 04/25/22 16:40 Review of Systems Review of Systems ROS Unobtainable: All systems reviewed & are unremarkable except as noted in HPI and below Patient History Social History household members: spouse Smoking Status: Former smoker alcohol intake: current Smoking Status: Former smoker alcohol intake frequency: a few times a week Substance Use Type: does not use Exam Initial Vital Signs Initial Vital Signs: Vital Signs Temperature 97.1 F L 04/25/22 16:36 Pulse Rate 68 04/25/22 16:36 Respiratory Rate 25 H 04/25/22 16:36 Blood Pressure 150/70 H 04/25/22 16:36 Pulse Oximetry 98 04/25/22 16:36 Oxygen Delivery Method Room Air 04/25/22 16:36 GENERAL: Alert 76-year-old male appears uncomfortable HEENT: Head atraumatic,EOMI, pupils reactive, face symmetric, moist mucous membranes CARDIOVASCULAR: Regular rate and rhythm without murmurs, rubs or gallops. RESPIRATORY: Breath sounds equal bilaterally, no wheezes rales or rhonchi. ABDOMEN: Soft, nontender. Normoactive bowel sounds all 4 quadrants. No guarding or rebound. EXTREMITIES: Normal range of motion, no clubbing or edema. Neurovascularly intact. Left shoulder deformity distal radial pulse intact Pelvis is stable NEUROLOGICAL: Alert and oriented x4 SKIN: Warm, dry, no laceration, no petechiae, no rashes or lesions. Procedures Orthopedic Joint Reduction Joint #1: Side: left Joint Reduction Location: shoulder Analgesia: procedural sedation Post-reduction neuro exam: intact and no change Post-reduction vascular: intact and no change Post Reduction X-Ray Obtained: Yes Post Reduction X-Ray Results: reduced Splint Applied: Yes Procedural Sedation Consent signed: Yes ASA Class: II Mallampati Airway Classification: Class II IV Propofol dose (mg): 50 Intraservice time/total sedation time (min): 12 ED Sedation Level: Moderate (Concious) Course Orders Ordered: Discontinued Medications Hydromorphone HCl (Hydromorphone 1 Mg Inj) 1 mg IV NOW ONE Stop: 04/25/22 19:05 Last Admin: 04/25/22 19:13 Dose: 1 mg Documented By: RHONDA Ketorolac Tromethamine (Ketorolac 30 Mg/Ml Vial) 15 mg IV NOW ONE Stop: 04/25/22 20:21 Last Admin: 04/25/22 20:59 Dose: 15 mg Documented By: LAITH Morphine Sulfate (Morphine 2 Mg/Ml Inj) 2 mg IV NOW ONE Stop: 04/25/22 18:03 Last Admin: 04/25/22 18:06 Dose: 2 mg Documented By: JULISA Propofol (Propofol 200 Mg/20 Ml Vial) 105 mg 1 mg/kg (105 mg) IV NOW ONE Stop: 04/25/22 19:05 Last Admin: 04/25/22 20:11 Dose: 50 mg Documented By: JULISA Vital Signs Vital signs: Vital Signs - 8 hr 04/25/22 16:36 04/25/22 17:52 04/25/22 17:56 Temperature 97.1 F L Pulse Rate 68 64 71 Respiratory Rate 25 H Blood Pressure 150/70 H Pulse Oximetry 98 100 100 Oxygen Delivery Method Room Air 04/25/22 17:56 04/25/22 18:00 04/25/22 18:01 Temperature Pulse Rate 69 Respiratory Rate Blood Pressure 132/61 153/70 H Pulse Oximetry 100 Oxygen Delivery Method 04/25/22 18:01 04/25/22 18:30 04/25/22 18:31 Temperature Pulse Rate 65 65 Respiratory Rate 16 Blood Pressure 131/72 Pulse Oximetry 100 100 Oxygen Delivery Method 04/25/22 18:31 04/25/22 19:00 04/25/22 19:01 Temperature Pulse Rate 64 67 Respiratory Rate 22 15 Blood Pressure 152/68 H Pulse Oximetry 100 100 Oxygen Delivery Method 04/25/22 19:01 04/25/22 19:30 04/25/22 19:31 Temperature Pulse Rate 65 66 Respiratory Rate 21 11 L Blood Pressure 158/68 H Pulse Oximetry 100 100 Oxygen Delivery Method 04/25/22 19:31 04/25/22 20:00 04/25/22 20:01 Temperature Pulse Rate 63 65 Respiratory Rate 16 14 Blood Pressure 135/64 Pulse Oximetry 100 99 Oxygen Delivery Method 04/25/22 20:01 Temperature Pulse Rate 63 Respiratory Rate 17 Blood Pressure Pulse Oximetry 99 Oxygen Delivery Method MDM - Fall Lab Data 04/25/22 16:55 04/25/22 16:55 Labs: Lab Results 04/25/22 04/25/22 Range/Units 16:55 16:55 WBC 9.1 (4.5-11.0) X10^3/uL RBC 4.40 L (4.5-5.9) X10^6/uL Hgb 11.9 L (13.5-17.5) g/dL Hct 37.0 L (41-53) % MCV 84.1 (80-100) fL MCH 27.2 (26-34) PG MCHC 32.3 (30-36) % RDW 14.7 (11.6-14.8) % Plt Count 275 (150-400) X10^3/uL Neut % (Auto) 52.8 (50-75) % Lymph % (Auto) 35.2 (25-40) % [place] % (Auto) 6.7 (3-14) % Eos % (Auto) 4.5 H (2-4) % Baso % (Auto) 0.8 (0-2) % Neut # (Auto) 4800 (2965-2381) /uL Lymph # (Auto) 3200 (9553-2146) /uL [place] # (Auto) 600 (0-900) /uL Eos # (Auto) 400 (0-450) /uL Baso # (Auto) 100 (0-100) /uL Sodium 140 (137-145) mmol/L Potassium 4.5 (3.4-5.1) mmol/L Chloride 101 (98-107) mmol/L Carbon Dioxide 25 (22-32) mmol/L BUN 19 (9-20) mg/dL Creatinine 1.28 H (0.66-1.25) mg/dL Estimated GFR 58 L (>60) mL/min BUN/Creatinine Ratio 14.8 (6-22) Glucose 138 H (80-110) mg/dL Calcium 9.3 (8.4-10.2) mg/dL Total Bilirubin 0.7 (0.2-1.3) mg/dL AST 22 (17-59) IU/L ALT 16 (<50) IU/L Alkaline Phosphatase 93 (38-126) U/L Total Protein 8.0 (6.3-8.2) g/dL Albumin 4.3 (3.5-5.0) g/dL Globulin 3.7 (1.7-4.1) g/dL Albumin/Globulin Ratio 1.2 (1.0-2.8) Imaging Data Extremity x-ray #2: Radiologist's Impression: PROCEDURE:? XR SHOULDER LT MIN 2V ? INDICATIONS:? post reduction ? TECHNIQUE:? 2 views of the shoulder were acquired.? ? COMPARISON:? [facility], CR, XR SHOULDER LT MIN 2V, 04/25/2022, 16:59. ? FINDINGS:? ? Bones:? There is interval reduction of the previously dislocated left glenohumeral joint. ?Small Hill-Sachs fracture fragments of the superolateral humeral head are redemonstrated.? There are also small ossicles inferior to the glenoid compatible with small bony Bankart fractures.? No suspicious bony lesions.? Visualized ribs appear intact.? ? Soft tissues:? No suspicious soft tissue calcifications.? There is a left chest wall AICD again noted. ? IMPRESSION:? ? 1. Interval reduction of the previously dislocated glenohumeral joint. ? 2. Small Hill-Sachs and bony Bankart fracture fragments redemonstrated.? ? ? Dictated by: Markos Deras M.D. on 04/25/2022 at 20:38 ? ? Approved by: Markos Deras M.D. on 04/25/2022 at 20:40 ? Extremity x-ray #3: Radiologist's Impression: PROCEDURE:? XR THORACIC SPINE 2V ? INDICATIONS:? fall back surgery ? TECHNIQUE:? 3 views of the thoracic spine were acquired.? ? COMPARISON:? [facility], , THORACIC SPINE 3 VIEWS, 09/07/2016, 15:08. ? FINDINGS:? ? Bones:? Limited study due to cross-table lateral technique.? The upper and lower thoracic spine are not well visualized on the lateral projection.? No definite fracture or subluxation of the visualized thoracic spine. Posterior fixation hardware partially visualized within the lumbar spine. ? Soft tissues:? An AICD is redemonstrated. ? ? IMPRESSION:? ? 1. Limited study demonstrates no definite fracture or subluxation. ? ? Dictated by: Markos Deras M.D. on 04/25/2022 at 21:28 ? ? [facility] Narrative Medical decision making narrative: Patient is 76-year-old male with acute on chronic back pain after falling and left shoulder pain. He is found to have left shoulder dislocation which is easily reduced with a procedure sedation. After pain medication he is able to ambulate with a walker and a weight bear with his left shoulder. X-rays do not reveal any loosening of his hardware in his back and shoulder is easily reduced. Blood work is overall reassuring without any leukocytosis alert electrolyte abnormality or acute kidney injury. He is given 1 dose of Toradol Dilaudid and morphine. He tolerated procedure sedation well Discharge Plan Departure Patient Disposition: Home Clinical Impression: Dislocated shoulder, Chronic back pain Instructions: DI for Shoulder Dislocation Activity Restrictions/Additional Instructions: *You have been diagnosed with left shoulder dislocation *What to do: Harm sorry you fell today dislocated her shoulder. Fortunately was easily reduced. You may noted some soreness. You may move it as tolerated. Back x-ray today was overall reassuring *Continue to take medications as directed Please take pain medication as previously prescribed *Follow up with your primary care provider in 2-3 days or call [phone] *Return to ER if you should have increasing pain numbness tingling weakness confusion [or] any new, worsening or concerning symptoms Prescriptions: No Action MULTIVITAMIN (Multivitamin -) 1 spray PO DAILY Qty: 0 VITAMIN C - (VITAMIN C) 1,000 mg PO DAILY Qty: 0 CHOLECALCIFEROL (VITAMIN D3) (Vitamin D3) 1 tab PO DAILY Qty: 0 insulin glargine 100 unit/mL Cartridge 40 unit SUBCUT BID Patient Comments: 27u this am spironolactone 25 mg Tablet 25 mg PO DAILY carvedilol 6.25 mg tablet 6.25 mg PO BID glimepiride 4 mg tablet 4 mg PO DAILY Jardiance 10 mg tablet 10 mg PO DAILY allopurinol 300 mg tablet 300 mg PO DAILY metformin 500 mg Tablet 500 mg PO BID losartan 25 mg Tablet 12.5 mg PO DAILY furosemide 20 mg Tablet 20 mg PO DAILY Referrals: Javier Clark MD [Primary Care Provider] - Stand Alone Forms: Patient Portal/API
[2022-04-25] MEDS: HYDROMORPHONE 1 MG INJ IV (19:13)
[2022-04-25] MEDS: propofoL 200 MG/20 ML VIAL 105 MG IV (20:11)
--- NOTE | 2022-04-25 20:15 | DI.RAD.S_ITS ---
PROCEDURE: XR THORACIC SPINE 2V INDICATIONS: fall back surgery TECHNIQUE: 3 views of the thoracic spine were acquired. COMPARISON: [facility], , THORACIC SPINE 3 VIEWS, 09/07/2016, 15:08. FINDINGS: Bones: Limited study due to cross-table lateral technique. The upper and lower thoracic spine are not well visualized on the lateral projection. No definite fracture or subluxation of the visualized thoracic spine. Posterior fixation hardware partially visualized within the lumbar spine. Soft tissues: An AICD is redemonstrated. IMPRESSION: 1. Limited study demonstrates no definite fracture or subluxation. Dictated by: Markos Deras M.D. on 04/25/2022 at 21:28 Approved by: Markos Deras M.D. on 04/25/2022 at 21:31
--- NOTE | 2022-04-25 20:15 | DI.RAD.S_ITS ---
PROCEDURE: XR SHOULDER LT MIN 2V INDICATIONS: post reduction TECHNIQUE: 2 views of the shoulder were acquired. COMPARISON: [facility], CR, XR SHOULDER LT MIN 2V, 04/25/2022, 16:59. FINDINGS: Bones: There is interval reduction of the previously dislocated left glenohumeral joint. Small Hill-Sachs fracture fragments of the superolateral humeral head are redemonstrated. There are also small ossicles inferior to the glenoid compatible with small bony Bankart fractures. No suspicious bony lesions. Visualized ribs appear intact. Soft tissues: No suspicious soft tissue calcifications. There is a left chest wall AICD again noted. IMPRESSION: 1. Interval reduction of the previously dislocated glenohumeral joint. 2. Small Hill-Sachs and bony Bankart fracture fragments redemonstrated. Dictated by: Markos Deras M.D. on 04/25/2022 at 20:38 Approved by: Markos Deras M.D. on 04/25/2022 at 20:40
[2022-04-25] MEDS: KETOROLAC 30 MG/ML VIAL 15 MG IV (20:59)
== END 2022-04-25 22:00 | disposition home or self-care (01) ==
PROVIDERS: Emergency Medicine; Emergency Provider Emergency Medicine; Family Provider Family Medicine; PCP Family Medicine; Referring Provider Family Medicine
DX: S43.005A Unspecified dislocation of left shoulder joint, initial encounter (principal); M54.9 Dorsalgia, unspecified; W18.30XA Fall on same level, unspecified, initial encounter; Z79.899 Other long term (current) drug therapy
CPT/HCPCS: 23650; 36415; 72070; 73030; 80053; 85025; 96374; 96375; 99152; 99284; 99285; J1170; J1885; J2270; J2704

== ENCOUNTER → 2022-05-11 12:56 | Outpatient (CLI) | payer MEDICARE, OTHER, SELFPAY | PROVIDERS: Family Provider Family Medicine; PCP Family Medicine; Referring Provider Family Medicine; Visit Provider Surgery | DX: E11.628 Type 2 diabetes mellitus with other skin complications (principal); L89.323 Pressure ulcer of left buttock, stage 3 | CPT/HCPCS: 99212 ==

== ENCOUNTER 2022-06-21 16:00 | Outpatient (RCR) | payer MEDICARE, OTHER, SELFPAY ==
--- NOTE | 2022-04-24 10:50 | PT.OIE ---
Current Diagnoses Other chronic pain (04/24/22) Unspecified kyphosis, thoracolumbar region (04/24/22) Other specified deforming dorsopathies, thoracolumbar region (04/24/22) Ankylosing spondylitis of lumbosacral region (04/24/22) Other spondylosis with radiculopathy, lumbar region (04/24/22) Spinal stenosis, lumbar region with neurogenic claudication (04/24/22) Other intervertebral disc degeneration, lumbar region (04/24/22) Lumbago with sciatica, right side (04/24/22) Lumbago with sciatica, left side (04/24/22) Arthrodesis status (04/24/22) Visit Care Team Role Provider Type Javier Clark MD Family Provider Physician Primary Care Provider Specialty: Family Practice Address: [facility] [place], [facility] Email: [email or web address] MARJORIE Garcia Attending Provider Non-Staff Referring Provider Specialty: Medical Address: [address] [place] [address], [facility] Email: Physical Therapy Initial Evaluation PT-OP-A Visit Information Start: 04/24/22 17:35 Freq: Status: Active Protocol: Document 04/24/22 09:45 DCW (Rec: 04/24/22 17:57 DCW [id number]) Out-Patient Physical Therapy Visit Information Visit Information Visit Type Initial Evaluation Visit Start Time 09:45 Visit Stop Time 10:30 Total Visit Minutes 45 Visit Number 1 Number of SERVICE SPECIALIST Visits 0 Evaluation Information Evaluation Date 04/24/22 PT-OP-B Current Condition Start: 04/24/22 17:35 Freq: Status: Active Protocol: Document 04/24/22 09:45 DCW (Rec: 04/24/22 17:57 DCW [id number]) Current Condition History of Current Condition Onset Date 03/07/22 Current Complaints Pain, limited mobility, difficulty walking s/p lumbar fusion History of Current Condition Pt is a 76 year old male presenting s/p lumbar fusion on 03/07/22. Pt returned home following surgery on 03/12, and began home health PT on 03/15. Pt reports he has been compliant with his HEP, however admits that it was getting too easy, so I tried to do more, and probably got a bit carried away. Notes he strained his back, had taken ten days off of his exercises, but restarted last week, and is feeling pretty good with his exercises. Goes out walking 4/5 mile 2x/day, which helps him feel better. Is currently using a 4WW to get around. Was getting away from using an assistive device, but over the past few weeks, has been having instances of right hip pain where it occasionally feels like it is going to give out, so he is a little scared to do much walking without the support of a walker. Pt still wearing a back brace when up and walking , reports he was instructed to use it for three months post- op. Additionally notes that he has a pressure ulcer on his left buttock, for which he is receiving treatment at wound care, but because of this wound, he is unable to sit for extended periods of time, so he has been up walking more than expected. Prior Treatments and Tests Home Health PT: Beginning HEP: Side-stepping at counter, standing hip abduction, marching, toe/heel raises, sit <->stand, seated add ball squeeze, seated resisted hip abd. 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 PT-OP-C Subjective Start: 04/24/22 17:35 Freq: Status: Active Protocol: Document 04/24/22 09:45 DCW (Rec: 04/24/22 17:57 DCW [id number]) OP-PT Subjective Patient Comments Patient Comments My hip feels like it needs to pop, it's not really painful, but kind of painful. Patient Questionnaires Oswestry Low Back Index Oswestry Score 25/50 = 50% Oswestry Impairment 40 to 59% Impaired (Score 40- 59) OP-PT Pain Assessment Location Lower Back Intensity 4 Scale Used Numeric (0 - 10) Description Aching,Pressure PT-OP-E Functional Tests Start: 04/24/22 17:35 Freq: Status: Active Protocol: Document 04/24/22 09:45 DCW (Rec: 04/24/22 17:57 DCW [id number]) Functional Tests 6 Minute Walk Test Distance 1198' Device Used 4WW Comments 3.3 ft/sec Five Times Sit to Stand Test Score 22.74 Timed Up and Go (TUG) Score 17.92 Comments Three-trial average (19.64, 17 .47, 16.65) TUG Impairment Rating 80 to <100% Impaired (Score 18 -19) PT-OP-M Strength Start: 04/24/22 17:35 Freq: Status: Active Protocol: Document 04/24/22 09:45 DCW (Rec: 04/24/22 17:58 DCW [id number]) Hip Strength Hip Manual Muscle Testing Right Flexion (L2) 3+ Fair+ Abduction 4 Good Adduction 4+ Good+ Left Flexion (L2) 3+ Fair+ Abduction 4 Good Adduction 4+ Good+ Knee Strength Knee Manual Muscle Testing Right Flexion (S2) 4+ Good+ Extension (L3) 5 Normal Left Flexion (S2) 4+ Good+ Extension (L3) 5 Normal Ankle/Foot Strength Ankle and Foot Manual Muscle Testing Right Dorsiflexion (L4) 3+ Fair+ Left Dorsiflexion (L4) 3+ Fair+ PT-OP-T Assessment and Plan Start: 04/24/22 17:35 Freq: Status: Active Protocol: Document 04/24/22 09:45 DCW (Rec: 04/25/22 10:50 DCW [id number]) Physical Therapy Assessment Rehab Potential Rehabilitation Potential Good Evaluation Complexity Number of Personal Factors/Comorbidities 3 or More Number of Body Systems Impaired 3 Clinical Presentation at Evaluation Unstable Impairments Impairments Activity Tolerance,Functional Activities,Functional Mobility ,Gait,Integument,Pain,Posture, Soft Tissue Mobility,Strength Other Concerns Fall Risk Yes, per TUG score (17.92) Goals Three Impairment 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 LTG Duration 07/23/22 Two Impairment LE MMT in <4/5 in multiple planes, specifically hip flexion and ankle DF Performance Improvement Coordinator Goal (LTG) LE MMT to be at least 4/5 in all planes in order to enable him to return to walking around his property without an assistive device LTG Duration 07/23/22 One Impairment Pt does not have an appropriate home exercise program Short Term Goal (STG) Pt to be independent and compliant with an appropriate HEP STG Duration 05/22/22 Assessment Summary Assessment Pt presents with signs and symptoms consistent with referring diagnosis following lumbar fusion. Pt limited with LE and core strength, poor balance, increased falls risk, difficulty with transfers, gait difficulty, and poor activity tolerance. Pt still using back brace during standing activities for another 6 weeks. Pt has been compliant thus far with home health PT HEP. Additionally undergoing treatment for pressure ulcer or left buttock at wound care, which limits ability to perform sitting exercises due to potential shearing forces. Pt should benefit from LE and core strengthening, balance and gait training, improving activity tolerance, and decreasing falls risk, per post-op protocol. Physical Therapy Plan Frequency and Duration Frequency of Treatment 1-2x/week Plan of Care Start Date 04/24/22 Plan of Care End Date 07/23/22 Therapeutic Interventions Therapeutic Interventions Balance Training,Home Exercise Program,Manual Therapy, Neuromuscular Re-education, Patient/Caregiver Education, Self-Care/Home Management,Soft Tissue Mobilization, Therapeutic Activities, Therapeutic Exercises Modalities Cold Pack/Ice Massage,Hot Packs Next Visit Focus/Plan Next Note Type Treatment Note Next Visit Plan LE strengthening, balance and gait training, flexibility exercises, activity toelrance
--- NOTE | 2022-04-24 10:52 | PT.OPPOC ---
Physical, Occupational & Speech Therapy At [facility] Current Diagnoses Other chronic pain (04/24/22) Unspecified kyphosis, thoracolumbar region (04/24/22) Other specified deforming dorsopathies, thoracolumbar region (04/24/22) Ankylosing spondylitis of lumbosacral region (04/24/22) Other spondylosis with radiculopathy, lumbar region (04/24/22) Spinal stenosis, lumbar region with neurogenic claudication (04/24/22) Other intervertebral disc degeneration, lumbar region (04/24/22) Lumbago with sciatica, right side (04/24/22) Lumbago with sciatica, left side (04/24/22) Arthrodesis status (04/24/22) Visit Care Team Role Provider Type Javier Clark MD Family Provider Physician Primary Care Provider Specialty: Family Practice Address: [address] [place] [address], [facility] Email: [email or web address] MARJORIE Garcia Attending Provider Non-Staff Referring Provider Specialty: Medical Address: [address] [place] [address] [address] [facility], [place], [place], [facility] Email: Plan Of Care PT-OP-T Assessment and Plan Start: 04/24/22 17:35 Freq: Status: Active Protocol: Document 04/24/22 09:45 DCW (Rec: 04/25/22 10:50 DCW [id number]) Physical Therapy Assessment Rehab Potential Rehabilitation Potential Good Evaluation Complexity Number of Personal Factors/Comorbidities 3 or More Number of Body Systems Impaired 3 Clinical Presentation at Evaluation Unstable Impairments Impairments Activity Tolerance,Functional Activities,Functional Mobility ,Gait,Integument,Pain,Posture, Soft Tissue Mobility,Strength Other Concerns Fall Risk Yes, per TUG score (17.92) Goals Three Impairment 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 LTG Duration 07/23/22 Two Impairment LE MMT in <4/5 in multiple planes, specifically hip flexion and ankle DF Handmade Tile Artist Goal (LTG) LE MMT to be at least 4/5 in all planes in order to enable him to return to walking around his property without an assistive device LTG Duration 07/23/22 One Impairment Pt does not have an appropriate home exercise program Short Term Goal (STG) Pt to be independent and compliant with an appropriate HEP STG Duration 05/22/22 Assessment Summary Assessment Pt presents with signs and symptoms consistent with referring diagnosis following lumbar fusion. Pt limited with LE and core strength, poor balance, increased falls risk, difficulty with transfers, gait difficulty, and poor activity tolerance. Pt still using back brace during standing activities for another 6 weeks. Pt has been compliant thus far with home health PT HEP. Additionally undergoing treatment for pressure ulcer or left buttock at wound care, which limits ability to perform sitting exercises due to potential shearing forces. Pt should benefit from LE and core strengthening, balance and gait training, improving activity tolerance, and decreasing falls risk, per post-op protocol. Physical Therapy Plan Frequency and Duration Frequency of Treatment 1-2x/week Plan of Care Start Date 04/24/22 Plan of Care End Date 07/23/22 Therapeutic Interventions Therapeutic Interventions Balance Training,Home Exercise Program,Manual Therapy, Neuromuscular Re-education, Patient/Caregiver Education, Self-Care/Home Management,Soft Tissue Mobilization, Therapeutic Activities, Therapeutic Exercises Modalities Cold Pack/Ice Massage,Hot Packs Next Visit Focus/Plan Next Note Type Treatment Note Next Visit Plan LE strengthening, balance and gait training, flexibility exercises, activity tolerance Plan of Care Dates Plan of Care Start Date 04/24/22 Plan of Care End Date 07/23/22 Electronically Signed by: Moody Camp, PT 04/25/22 [id number] If you are in agreement with this Plan of Care, please return a signed and dated copy. I have reviewed this Plan of Care and certify that the skilled therapy services above are required to meet the patient?s needs. Physician Signature Date Printed Name and Credentials Clinical Instructor Signature Printed Name and Credentials
--- NOTE | 2022-05-22 11:18 | PT.OTN ---
Current Diagnoses Other chronic pain (05/22/22) Unspecified kyphosis, thoracolumbar region (05/22/22) Other specified deforming dorsopathies, thoracolumbar region (05/22/22) Ankylosing spondylitis of lumbosacral region (05/22/22) Other spondylosis with radiculopathy, lumbar region (05/22/22) Spinal stenosis, lumbar region with neurogenic claudication (05/22/22) Other intervertebral disc degeneration, lumbar region (05/22/22) Lumbago with sciatica, right side (05/22/22) Lumbago with sciatica, left side (05/22/22) Arthrodesis status (05/22/22) Physical Therapy Treatment Note PT-OP-A Visit Information Start: 04/24/22 17:35 Freq: Status: Active Protocol: Document 05/22/22 10:30 DCW (Rec: 05/22/22 11:18 DCW [id number]) Out-Patient Physical Therapy Visit Information Visit Information Visit Type Treatment Note Visit Start Time 10:30 Visit Stop Time 11:15 Total Visit Minutes 45 Visit Number 2 Number of LOGGING [employer]ER Visits 0 Evaluation Information Evaluation Date 04/24/22 PT-OP-B Current Condition Start: 04/24/22 17:35 Freq: Status: Active Protocol: Document 04/24/22 09:45 DCW (Rec: 04/24/22 17:57 DCW [id number]) Current Condition History of Current Condition Onset Date 03/07/22 Current Complaints Pain, limited mobility, difficulty walking s/p lumbar fusion History of Current Condition Pt is a 76 year old male presenting s/p lumbar fusion on 03/07/22. Pt returned home following surgery on 03/12, and began home health PT on 03/15. Pt reports he has been compliant with his HEP, however admits that it was getting too easy, so I tried to do more, and probably got a bit carried away. Notes he strained his back, had taken ten days off of his exercises, but restarted last week, and is feeling pretty good with his exercises. Goes out walking 4/5 mile 2x/day, which helps him feel better. Is currently using a 4WW to get around. Was getting away from using an assistive device, but over the past few weeks, has been having instances of right hip pain where it occasionally feels like it is going to give out, so he is a little scared to do much walking without the support of a walker. Pt still wearing a back brace when up and walking , reports he was instructed to use it for three months post- op. Additionally notes that he has a pressure ulcer on his left buttock, for which he is receiving treatment at wound care, but because of this wound, he is unable to sit for extended periods of time, so he has been up walking more than expected. Prior Treatments and Tests Home Health PT: Beginning HEP: Side-stepping at counter, standing hip abduction, marching, toe/heel raises, sit <->stand, seated add ball squeeze, seated resisted hip abd. 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 PT-OP-C Subjective Start: 04/24/22 17:35 Freq: Status: Active Protocol: Document 05/22/22 10:30 DCW (Rec: 05/22/22 11:18 DCW [id number]) OP-PT Subjective Patient Comments Patient Comments I was doing really well, maybe too much. After I was here for my evaluation, I took a spill, and ended up dislocating my (left) shoulder . So now I haven't been doing quite as much. The muscle in my right low back right now really gets flared up and sore if I stand or walk without my walker. PT-OP-E Functional Tests Start: 04/24/22 17:35 Freq: Status: Active Protocol: Document 04/24/22 09:45 DCW (Rec: 04/24/22 17:57 DCW [id number]) Functional Tests 6 Minute Walk Test Distance 1198' Device Used 4WW Comments 3.3 ft/sec Five Times Sit to Stand Test Score 22.74 Timed Up and Go (TUG) Score 17.92 Comments Three-trial average (19.64, 17 .47, 16.65) TUG Impairment Rating 80 to <100% Impaired (Score 18 -19) PT-OP-M Strength Start: 04/24/22 17:35 Freq: Status: Active Protocol: Document 04/24/22 09:45 DCW (Rec: 04/24/22 17:58 DCW [id number]) Hip Strength Hip Manual Muscle Testing Right Flexion (L2) 3+ Fair+ Abduction 4 Good Adduction 4+ Good+ Left Flexion (L2) 3+ Fair+ Abduction 4 Good Adduction 4+ Good+ Knee Strength Knee Manual Muscle Testing Right Flexion (S2) 4+ Good+ Extension (L3) 5 Normal Left Flexion (S2) 4+ Good+ Extension (L3) 5 Normal Ankle/Foot Strength Ankle and Foot Manual Muscle Testing Right Dorsiflexion (L4) 3+ Fair+ Left Dorsiflexion (L4) 3+ Fair+ PT-OP-Q Treatments Start: 04/24/22 17:35 Freq: Status: Active Protocol: Document 05/22/22 10:30 DCW (Rec: 05/22/22 11:18 DCW [id number]) Cardio Equipment Recumbent Elliptical (Biodex) Duration (Minutes) 7 Resistance 5 Seat Position 12 Gym Equipment Shuttle Recovery Unilateral Squats Resistance 37# Shuttle Recovery Platform Stable Bilateral Squats Resistance 75# Shuttle Recovery Platform Stable Therapeutic Exercises Standing Exercises Hip Abduction Standing Exercise Name Hip Abduction Side bilateral Resistance Red Hip Extension Standing Exercise Name Hip Extension Side bilateral Resistance Red Pallof Press Standing Exercise Name Pallos Press Side bilateral Resistance Lv 3 Comments Lumbar/core stabilization Extension Standing Exercise Name Shoulder Extension Side bilateral Resistance Lv 3 Comments Lumbar/core stabilization Rows Standing Exercise Name Rows Side bilateral Resistance Lv 3 Comments Lumbar/core stabilization PT-OP-T Assessment and Plan Start: 04/24/22 17:35 Freq: Status: Active Protocol: Document 05/22/22 10:30 DCW (Rec: 05/22/22 11:18 DCW [id number]) Physical Therapy Assessment Impairments Impairments Activity Tolerance,Functional Activities,Functional Mobility ,Gait,Integument,Pain,Posture, Soft Tissue Mobility,Strength Goals Three Impairment 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 LTG Duration 07/23/22 Two Impairment LE MMT in <4/5 in multiple planes, specifically hip flexion and ankle DF Snf Goal (LTG) LE MMT to be at least 4/5 in all planes in order to enable him to return to walking around his property without an assistive device LTG Duration 07/23/22 One Impairment Pt does not have an appropriate home exercise program Short Term Goal (STG) Pt to be independent and compliant with an appropriate HEP STG Duration 05/22/22 Assessment Summary Assessment Pt tolerated treatment well for first visit back following his fall/shoulder dislocation . Focused on improving activity tolerance, core, back , and leg strengthening. Should benefit from additional balance training to decrease falls risk and fear of falling . Physical Therapy Plan Frequency and Duration Frequency of Treatment 1-2x/week Plan of Care Start Date 04/24/22 Plan of Care End Date 07/23/22 Therapeutic Interventions Therapeutic Interventions Balance Training,Home Exercise Program,Manual Therapy, Neuromuscular Re-education, Patient/Caregiver Education, Self-Care/Home Management,Soft Tissue Mobilization, Therapeutic Activities, Therapeutic Exercises Modalities Cold Pack/Ice Massage,Hot Packs Next Visit Focus/Plan Next Note Type Treatment Note Next Visit Plan LE strengthening, balance and gait training, flexibility exercises, activity [place]
--- NOTE | 2022-05-24 14:30 | PT.OTN ---
Current Diagnoses Other chronic pain (05/24/22) Unspecified kyphosis, thoracolumbar region (05/24/22) Other specified deforming dorsopathies, thoracolumbar region (05/24/22) Ankylosing spondylitis of lumbosacral region (05/24/22) Other spondylosis with radiculopathy, lumbar region (05/24/22) Spinal stenosis, lumbar region with neurogenic claudication (05/24/22) Other intervertebral disc degeneration, lumbar region (05/24/22) Lumbago with sciatica, right side (05/24/22) Lumbago with sciatica, left side (05/24/22) Arthrodesis status (05/24/22) Physical Therapy Treatment Note PT-OP-A Visit Information Start: 04/24/22 17:35 Freq: Status: Active Protocol: Document 05/24/22 13:46 SP (Rec: 05/24/22 14:37 SP [id number]) Out-Patient Physical Therapy Visit Information Visit Information Visit Type Treatment Note Visit Start Time 13:46 Visit Stop Time 14:30 Total Visit Minutes 44 Visit Number 3 Number of REINFORCING STEEL MACHINE OPERATOR Visits 1 Evaluation Information Evaluation Date 04/24/22 PT-OP-B Current Condition Start: 04/24/22 17:35 Freq: Status: Active Protocol: Document 04/24/22 09:45 DCW (Rec: 04/24/22 17:57 DCW [id number]) Current Condition History of Current Condition Onset Date 03/07/22 Current Complaints Pain, limited mobility, difficulty walking s/p lumbar fusion History of Current Condition Pt is a 76 year old male presenting s/p lumbar fusion on 03/07/22. Pt returned home following surgery on 03/12, and began home health PT on 03/15. Pt reports he has been compliant with his HEP, however admits that it was getting too easy, so I tried to do more, and probably got a bit carried away. Notes he strained his back, had taken ten days off of his exercises, but restarted last week, and is feeling pretty good with his exercises. Goes out walking 4/5 mile 2x/day, which helps him feel better. Is currently using a 4WW to get around. Was getting away from using an assistive device, but over the past few weeks, has been having instances of right hip pain where it occasionally feels like it is going to give out, so he is a little scared to do much walking without the support of a walker. Pt still wearing a back brace when up and walking , reports he was instructed to use it for three months post- op. Additionally notes that he has a pressure ulcer on his left buttock, for which he is receiving treatment at wound care, but because of this wound, he is unable to sit for extended periods of time, so he has been up walking more than expected. Prior Treatments and Tests Home Health PT: Beginning HEP: Side-stepping at counter, standing hip abduction, marching, toe/heel raises, sit <->stand, seated add ball squeeze, seated resisted hip abd. 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 PT-OP-C Subjective Start: 04/24/22 17:35 Freq: Status: Active Protocol: Document 05/24/22 13:46 SP (Rec: 05/24/22 14:37 SP [id number]) OP-PT Subjective Patient Comments Patient Comments Pt reports his L arm was prett sore after last tx but after held arm across chest goes away. R LB soreness lately, has been trying to walk without walker in the house short distances. He states see ortho Sunday. PT-OP-E Functional Tests Start: 04/24/22 17:35 Freq: Status: Active Protocol: Document 04/24/22 09:45 DCW (Rec: 04/24/22 17:57 DCW [id number]) Functional Tests 6 Minute Walk Test Distance 1198' Device Used 4WW Comments 3.3 ft/sec Five Times Sit to Stand Test Score 22.74 Timed Up and Go (TUG) Score 17.92 Comments Three-trial average (19.64, 17 .47, 16.65) TUG Impairment Rating 80 to <100% Impaired (Score 18 -19) PT-OP-M Strength Start: 04/24/22 17:35 Freq: Status: Active Protocol: Document 04/24/22 09:45 DCW (Rec: 04/24/22 17:58 DCW [id number]) Hip Strength Hip Manual Muscle Testing Right Flexion (L2) 3+ Fair+ Abduction 4 Good Adduction 4+ Good+ Left Flexion (L2) 3+ Fair+ Abduction 4 Good Adduction 4+ Good+ Knee Strength Knee Manual Muscle Testing Right Flexion (S2) 4+ Good+ Extension (L3) 5 Normal Left Flexion (S2) 4+ Good+ Extension (L3) 5 Normal Ankle/Foot Strength Ankle and Foot Manual Muscle Testing Right Dorsiflexion (L4) 3+ Fair+ Left Dorsiflexion (L4) 3+ Fair+ PT-OP-Q Treatments Start: 04/24/22 17:35 Freq: Status: Active Protocol: Document 05/24/22 13:46 SP (Rec: 05/24/22 14:37 SP [id number]) Cardio Equipment Recumbent Elliptical ([employer]) Duration (Minutes) 7 Resistance 5>4 Seat Position 12 Other LEs, 715 steps Gym Equipment Shuttle Recovery Unilateral Squats Details limited range 90 deg knee & hip Resistance 37# Shuttle Recovery Platform Stable Reps/Time x15 Bilateral Squats Resistance 75# Shuttle Recovery Platform Stable Reps/Time x15 Therapeutic Exercises Standing Exercises Pallof Press Standing Exercise Name Pallos Press Side bilateral Resistance Lv 3>2 Reps/Minutes x10 each side Comments Lumbar/core stabilization Other Exercises resisted side stepping Resistance RTB at pierce Reps/Minutes 15 ft x2 laps Comments cued taller posturing, feel // Self-Care/Home Management Treatment Education Other Education Extra time spent discussion proper height 4WW, upright walker, posturing for normal gait/back health. Verbal review of suping/ side HEP: TA , neutral LS pelvis: HS, single march, or SLR if ok, side: hip abd but proper LS alignment. Good understanding. Pt declined laying on back due to hard surface. 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 LTG Duration 07/23/22 Two Impairment LE MMT in <4/5 in multiple planes, specifically hip flexion and ankle DF Snf Goal (LTG) LE MMT to be at least 4/5 in all planes in order to enable him to return to walking around his property without an assistive device LTG Duration 07/23/22 One Impairment Pt does not have an appropriate home exercise program Short Term Goal (STG) Pt to be independent and compliant with an appropriate HEP STG Duration 05/22/22 Assessment Summary Assessment Pt good response to ther ex today, stated wants to elevate 4WW so not leaning forward when walking, has ability to modify/ self workers support. Physical Therapy Plan Frequency and Duration Frequency of Treatment 1-2x/week Plan of Care Start Date 04/24/22 Plan of Care End Date 07/23/22 Therapeutic Interventions Therapeutic Interventions Balance Training,Home Exercise Program,Manual Therapy, Neuromuscular Re-education, Patient/Caregiver Education, Self-Care/Home Management,Soft Tissue Mobilization, Therapeutic Activities, Therapeutic Exercises Modalities Cold Pack/Ice Massage,Hot Packs Next Visit Focus/Plan Next Note Type Treatment Note Next Visit Plan Review stretching, add wall posture and balance activities . POC: LE strengthening, balance and gait training, flexibility exercises, activity toelrance
--- NOTE | 2022-05-30 17:38 | PT.OTN ---
Current Diagnoses Other chronic pain (05/30/22) Unspecified kyphosis, thoracolumbar region (05/30/22) Other specified deforming dorsopathies, thoracolumbar region (05/30/22) Ankylosing spondylitis of lumbosacral region (05/30/22) Other spondylosis with radiculopathy, lumbar region (05/30/22) Spinal stenosis, lumbar region with neurogenic claudication (05/30/22) Other intervertebral disc degeneration, lumbar region (05/30/22) Lumbago with sciatica, right side (05/30/22) Lumbago with sciatica, left side (05/30/22) Arthrodesis status (05/30/22) Physical Therapy Treatment Note PT-OP-A Visit Information Start: 04/24/22 17:35 Freq: Status: Active Protocol: Document 05/30/22 16:50 DCW (Rec: 05/30/22 17:38 DCW [id number]) Out-Patient Physical Therapy Visit Information Visit Information Visit Type Treatment Note Visit Start Time 16:50 Visit Stop Time 17:32 Total Visit Minutes 42 Visit Number 4 Number of NAIL ARTIST Visits 0 Evaluation Information Evaluation Date 04/24/22 PT-OP-B Current Condition Start: 04/24/22 17:35 Freq: Status: Active Protocol: Document 04/24/22 09:45 DCW (Rec: 04/24/22 17:57 DCW [id number]) Current Condition History of Current Condition Onset Date 03/07/22 Current Complaints Pain, limited mobility, difficulty walking s/p lumbar fusion History of Current Condition Pt is a 76 year old male presenting s/p lumbar fusion on 03/07/22. Pt returned home following surgery on 03/12, and began home health PT on 03/15. Pt reports he has been compliant with his HEP, however admits that it was getting too easy, so I tried to do more, and probably got a bit carried away. Notes he strained his back, had taken ten days off of his exercises, but restarted last week, and is feeling pretty good with his exercises. Goes out walking 4/5 mile 2x/day, which helps him feel better. Is currently using a 4WW to get around. Was getting away from using an assistive device, but over the past few weeks, has been having instances of right hip pain where it occasionally feels like it is going to give out, so he is a little scared to do much walking without the support of a walker. Pt still wearing a back brace when up and walking , reports he was instructed to use it for three months post- op. Additionally notes that he has a pressure ulcer on his left buttock, for which he is receiving treatment at wound care, but because of this wound, he is unable to sit for extended periods of time, so he has been up walking more than expected. Prior Treatments and Tests Home Health PT: Beginning HEP: Side-stepping at counter, standing hip abduction, marching, toe/heel raises, sit <->stand, seated add ball squeeze, seated resisted hip abd. 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 PT-OP-C Subjective Start: 04/24/22 17:35 Freq: Status: Active Protocol: Document 05/30/22 16:50 DCW (Rec: 05/30/22 17:38 DCW [id number]) OP-PT Subjective Patient Comments Patient Comments Pt notes his left arm continues to be sore, but otherwise making decent progress. Walking around his home without the walker, but admits he is not perfrectly upright. Saw surgeon yesterday, who took x-rays, didn't notice any changes following his fall. PT-OP-E Functional Tests Start: 04/24/22 17:35 Freq: Status: Active Protocol: Document 04/24/22 09:45 DCW (Rec: 04/24/22 17:57 DCW [id number]) Functional Tests 6 Minute Walk Test Distance 1198' Device Used 4WW Comments 3.3 ft/sec Five Times Sit to Stand Test Score 22.74 Timed Up and Go (TUG) Score 17.92 Comments Three-trial average (19.64, 17 .47, 16.65) TUG Impairment Rating 80 to <100% Impaired (Score 18 -19) PT-OP-M Strength Start: 04/24/22 17:35 Freq: Status: Active Protocol: Document 04/24/22 09:45 DCW (Rec: 04/24/22 17:58 DCW [id number]) Hip Strength Hip Manual Muscle Testing Right Flexion (L2) 3+ Fair+ Abduction 4 Good Adduction 4+ Good+ Left Flexion (L2) 3+ Fair+ Abduction 4 Good Adduction 4+ Good+ Knee Strength Knee Manual Muscle Testing Right Flexion (S2) 4+ Good+ Extension (L3) 5 Normal Left Flexion (S2) 4+ Good+ Extension (L3) 5 Normal Ankle/Foot Strength Ankle and Foot Manual Muscle Testing Right Dorsiflexion (L4) 3+ Fair+ Left Dorsiflexion (L4) 3+ Fair+ PT-OP-Q Treatments Start: 04/24/22 17:35 Freq: Status: Active Protocol: Document 05/30/22 16:50 DCW (Rec: 05/30/22 17:38 DCW [id number]) Cardio Equipment Recumbent Elliptical ([employer]) Duration (Minutes) 7 Resistance 4 Seat Position 12 Gym Equipment Shuttle Recovery Unilateral Squats Resistance 37# Shuttle Recovery Platform Stable Bilateral Squats Resistance 75# (one new) Shuttle Recovery Platform Stable Therapeutic Exercises Standing Exercises BOSU Lunge Standing Exercise Name BOSU Lunges Side bilateral Pallof Press Standing Exercise Name Pallos Press Side bilateral Resistance Green LF Reps/Minutes x10 each side Comments Lumbar/core stabilization Neuro Re-Education Treatment Balance Activities Tilt board Details DF/PF, Lateral weight shift Hurdles Details Hurdles Comments Fwd, side-stepping PT-OP-T Assessment and Plan Start: 04/24/22 17:35 Freq: Status: Active Protocol: Document 05/30/22 16:50 DCW (Rec: 05/30/22 17:38 DCW [id number]) Physical Therapy Assessment Impairments Impairments Activity Tolerance,Functional Activities,Functional Mobility ,Gait,Integument,Pain,Posture, Soft Tissue Mobility,Strength Goals Three Impairment 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 LTG Duration 07/23/22 Two Impairment LE MMT in <4/5 in multiple planes, specifically hip flexion and ankle DF Detention Goal (LTG) LE MMT to be at least 4/5 in all planes in order to enable him to return to walking around his property without an assistive device LTG Duration 07/23/22 One Impairment Pt does not have an appropriate home exercise program Short Term Goal (STG) Pt to be independent and compliant with an appropriate HEP STG Duration 05/22/22 Assessment Summary Assessment Pt noted significant struggle today, just from the workout and difficulty being higher than previous sessions. Pt was happy with how he responded, shoulder injury still limiting in some ways. Physical Therapy Plan Frequency and Duration Frequency of Treatment 1-2x/week Plan of Care Start Date 04/24/22 Plan of Care End Date 07/23/22 Therapeutic Interventions Therapeutic Interventions Balance Training,Home Exercise Program,Manual Therapy, Neuromuscular Re-education, Patient/Caregiver Education, Self-Care/Home Management,Soft Tissue Mobilization, Therapeutic Activities, Therapeutic Exercises Modalities Cold Pack/Ice Massage,Hot Packs Next Visit Focus/Plan Next Note Type Treatment Note Next Visit Plan Review stretching, add wall posture and balance activities . POC: LE strengthening, balance and gait training, flexibility exercises, activity toelrance
--- NOTE | 2022-06-01 14:32 | PT.OTN ---
Current Diagnoses Other chronic pain (06/01/22) Unspecified kyphosis, thoracolumbar region (06/01/22) Other specified deforming dorsopathies, thoracolumbar region (06/01/22) Ankylosing spondylitis of lumbosacral region (06/01/22) Other spondylosis with radiculopathy, lumbar region (06/01/22) Spinal stenosis, lumbar region with neurogenic claudication (06/01/22) Other intervertebral disc degeneration, lumbar region (06/01/22) Lumbago with sciatica, right side (06/01/22) Lumbago with sciatica, left side (06/01/22) Arthrodesis status (06/01/22) Physical Therapy Treatment Note PT-OP-A Visit Information Start: 04/24/22 17:35 Freq: Status: Active Protocol: Document 06/01/22 13:45 DCW (Rec: 06/01/22 14:32 DCW [id number]) Out-Patient Physical Therapy Visit Information Visit Information Visit Type Treatment Note Visit Start Time 13:45 Visit Stop Time 14:30 Total Visit Minutes 45 Visit Number 5 Number of MATCHBOOK MAKER Visits 0 Evaluation Information Evaluation Date 04/24/22 PT-OP-B Current Condition Start: 04/24/22 17:35 Freq: Status: Active Protocol: Document 04/24/22 09:45 DCW (Rec: 04/24/22 17:57 DCW [id number]) Current Condition History of Current Condition Onset Date 03/07/22 Current Complaints Pain, limited mobility, difficulty walking s/p lumbar fusion History of Current Condition Pt is a 76 year old male presenting s/p lumbar fusion on 03/07/22. Pt returned home following surgery on 03/12, and began home health PT on 03/15. Pt reports he has been compliant with his HEP, however admits that it was getting too easy, so I tried to do more, and probably got a bit carried away. Notes he strained his back, had taken ten days off of his exercises, but restarted last week, and is feeling pretty good with his exercises. Goes out walking 4/5 mile 2x/day, which helps him feel better. Is currently using a 4WW to get around. Was getting away from using an assistive device, but over the past few weeks, has been having instances of right hip pain where it occasionally feels like it is going to give out, so he is a little scared to do much walking without the support of a walker. Pt still wearing a back brace when up and walking , reports he was instructed to use it for three months post- op. Additionally notes that he has a pressure ulcer on his left buttock, for which he is receiving treatment at wound care, but because of this wound, he is unable to sit for extended periods of time, so he has been up walking more than expected. Prior Treatments and Tests Home Health PT: Beginning HEP: Side-stepping at counter, standing hip abduction, marching, toe/heel raises, sit <->stand, seated add ball squeeze, seated resisted hip abd. 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 PT-OP-C Subjective Start: 04/24/22 17:35 Freq: Status: Active Protocol: Document 06/01/22 13:45 DCW (Rec: 06/01/22 14:32 DCW [id number]) OP-PT Subjective Patient Comments Patient Comments Pt reports his shoulder is still really bothering him, had a lot of pain following his last visit. PT-OP-E Functional Tests Start: 04/24/22 17:35 Freq: Status: Active Protocol: Document 04/24/22 09:45 DCW (Rec: 04/24/22 17:57 DCW [id number]) Functional Tests 6 Minute Walk Test Distance 1198' Device Used 4WW Comments 3.3 ft/sec Five Times Sit to Stand Test Score 22.74 Timed Up and Go (TUG) Score 17.92 Comments Three-trial average (19.64, 17 .47, 16.65) TUG Impairment Rating 80 to <100% Impaired (Score 18 -19) PT-OP-M Strength Start: 04/24/22 17:35 Freq: Status: Active Protocol: Document 04/24/22 09:45 DCW (Rec: 04/24/22 17:58 DCW [id number]) Hip Strength Hip Manual Muscle Testing Right Flexion (L2) 3+ Fair+ Abduction 4 Good Adduction 4+ Good+ Left Flexion (L2) 3+ Fair+ Abduction 4 Good Adduction 4+ Good+ Knee Strength Knee Manual Muscle Testing Right Flexion (S2) 4+ Good+ Extension (L3) 5 Normal Left Flexion (S2) 4+ Good+ Extension (L3) 5 Normal Ankle/Foot Strength Ankle and Foot Manual Muscle Testing Right Dorsiflexion (L4) 3+ Fair+ Left Dorsiflexion (L4) 3+ Fair+ PT-OP-Q Treatments Start: 04/24/22 17:35 Freq: Status: Active Protocol: Document 06/01/22 13:45 DCW (Rec: 06/01/22 14:32 DCW [id number]) Cardio Equipment Recumbent Elliptical ([employer] Duration (Minutes) 5 Resistance 4 Seat Position 12 Other LEs Gym Equipment Shuttle Recovery Unilateral Squats Resistance 37# (one new) Shuttle Recovery Platform Stable Bilateral Squats Resistance 75# (two new) Shuttle Recovery Platform Stable Therapeutic Exercises Standing Exercises BOSU Lunge Standing Exercise Name BOSU Lunges Side bilateral Other Exercises resisted side stepping Resistance RTB at ankles Reps/Minutes 15 ft x2 laps Neuro Re-Education Treatment Balance Activities Tilt board Details DF/PF, Lateral weight shift Self-Care/Home Management Treatment Education Other Education Review of HEP, Icing instructions, importance of physical activity and walking, goal for 30 minutes daily on exercise bike. 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 LTG Duration 07/23/22 Two Impairment LE MMT in <4/5 in multiple planes, specifically hip flexion and ankle DF Skilled Nursing Goal (LTG) LE MMT to be at least 4/5 in all planes in order to enable him to return to walking around his property without an assistive device LTG Duration 07/23/22 One Impairment Pt does not have an appropriate home exercise program Short Term Goal (STG) Pt to be independent and compliant with an appropriate HEP STG Duration 05/22/22 Assessment Summary Assessment Pt showing good overall improvement, but most limited by shoulder pain, unable to perform any exercise which require use of left arm at this time. Physical Therapy Plan Frequency and Duration Frequency of Treatment 1-2x/week Plan of Care Start Date 04/24/22 Plan of Care End Date 07/23/22 Therapeutic Interventions Therapeutic Interventions Balance Training,Home Exercise Program,Manual Therapy, Neuromuscular Re-education, Patient/Caregiver Education, Self-Care/Home Management,Soft Tissue Mobilization, Therapeutic Activities, Therapeutic Exercises Modalities Cold Pack/Ice Massage,Hot Packs Next Visit Focus/Plan Next Note Type Treatment Note Next Visit Plan Review stretching, add wall posture and balance activities . POC: LE strengthening, balance and gait training, flexibility exercises, activity toelrance
--- NOTE | 2022-06-05 13:10 | PT-OP ANOTE ---
Pt called and left message <24 hr notice feeling sick and unable to attend appt.
--- NOTE | 2022-06-08 12:04 | PT.OTN ---
Current Diagnoses Other chronic pain (06/08/22) Unspecified kyphosis, thoracolumbar region (06/08/22) Other specified deforming dorsopathies, thoracolumbar region (06/08/22) Ankylosing spondylitis of lumbosacral region (06/08/22) Other spondylosis with radiculopathy, lumbar region (06/08/22) Spinal stenosis, lumbar region with neurogenic claudication (06/08/22) Other intervertebral disc degeneration, lumbar region (06/08/22) Lumbago with sciatica, right side (06/08/22) Lumbago with sciatica, left side (06/08/22) Arthrodesis status (06/08/22) Physical Therapy Treatment Note PT-OP-A Visit Information Start: 04/24/22 17:35 Freq: Status: Active Protocol: Document 06/08/22 11:15 DCW (Rec: 06/08/22 12:04 DCW [id number]) Out-Patient Physical Therapy Visit Information Visit Information Visit Type Treatment Note Visit Start Time 11:15 Visit Stop Time 12:00 Total Visit Minutes 45 Visit Number 6 Number of WEEKDAY BABYSITTER Visits 0 Evaluation Information Evaluation Date 04/24/22 PT-OP-B Current Condition Start: 04/24/22 17:35 Freq: Status: Active Protocol: Document 04/24/22 09:45 DCW (Rec: 04/24/22 17:57 DCW [id number]) Current Condition History of Current Condition Onset Date 03/07/22 Current Complaints Pain, limited mobility, difficulty walking s/p lumbar fusion History of Current Condition Pt is a 76 year old male presenting s/p lumbar fusion on 03/07/22. Pt returned home following surgery on 03/12, and began home health PT on 03/15. Pt reports he has been compliant with his HEP, however admits that it was getting too easy, so I tried to do more, and probably got a bit carried away. Notes he strained his back, had taken ten days off of his exercises, but restarted last week, and is feeling pretty good with his exercises. Goes out walking 4/5 mile 2x/day, which helps him feel better. Is currently using a 4WW to get around. Was getting away from using an assistive device, but over the past few weeks, has been having instances of right hip pain where it occasionally feels like it is going to give out, so he is a little scared to do much walking without the support of a walker. Pt still wearing a back brace when up and walking , reports he was instructed to use it for three months post- op. Additionally notes that he has a pressure ulcer on his left buttock, for which he is receiving treatment at wound care, but because of this wound, he is unable to sit for extended periods of time, so he has been up walking more than expected. Prior Treatments and Tests Home Health PT: Beginning HEP: Side-stepping at counter, standing hip abduction, marching, toe/heel raises, sit <->stand, seated add ball squeeze, seated resisted hip abd. 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 PT-OP-C Subjective Start: 04/24/22 17:35 Freq: Status: Active Protocol: Document 06/08/22 11:15 DCW (Rec: 06/08/22 12:04 DCW [id number]) OP-PT Subjective Patient Comments Patient Comments The back is feeling good. The shoulder is feeling somewhat better, I've been doing more arm activities, but just small amounts. PT-OP-E Functional Tests Start: 04/24/22 17:35 Freq: Status: Active Protocol: Document 04/24/22 09:45 DCW (Rec: 04/24/22 17:57 DCW [id number]) Functional Tests 6 Minute Walk Test Distance 1198' Device Used 4WW Comments 3.3 ft/sec Five Times Sit to Stand Test Score 22.74 Timed Up and Go (TUG) Score 17.92 Comments Three-trial average (19.64, 17 .47, 16.65) TUG Impairment Rating 80 to <100% Impaired (Score 18 -19) PT-OP-M Strength Start: 04/24/22 17:35 Freq: Status: Active Protocol: Document 04/24/22 09:45 DCW (Rec: 04/24/22 17:58 DCW [id number]) Hip Strength Hip Manual Muscle Testing Right Flexion (L2) 3+ Fair+ Abduction 4 Good Adduction 4+ Good+ Left Flexion (L2) 3+ Fair+ Abduction 4 Good Adduction 4+ Good+ Knee Strength Knee Manual Muscle Testing Right Flexion (S2) 4+ Good+ Extension (L3) 5 Normal Left Flexion (S2) 4+ Good+ Extension (L3) 5 Normal Ankle/Foot Strength Ankle and Foot Manual Muscle Testing Right Dorsiflexion (L4) 3+ Fair+ Left Dorsiflexion (L4) 3+ Fair+ PT-OP-Q Treatments Start: 04/24/22 17:35 Freq: Status: Active Protocol: Document 06/08/22 11:15 DCW (Rec: 06/08/22 12:04 DCW [id number]) Cardio Equipment Recumbent Elliptical ([employer]) Duration (Minutes) 6 Resistance 5 Seat Position 11 Other LEs Gym Equipment Shuttle Recovery Unilateral Squats Resistance 50# (one new) Shuttle Recovery Platform Stable Bilateral Squats Resistance 100# (two new) Shuttle Recovery Platform Stable Shuttle Balance Red Details WBOS, Staggered PT-OP-T Assessment and Plan Start: 04/24/22 17:35 Freq: Status: Active Protocol: Document 06/08/22 11:15 DCW (Rec: 06/08/22 12:04 DCW [id number]) Physical Therapy Assessment Impairments Impairments Activity Tolerance,Functional Activities,Functional Mobility ,Gait,Integument,Pain,Posture, Soft Tissue Mobility,Strength Goals Three Impairment 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 LTG Duration 07/23/22 Two Impairment LE MMT in <4/5 in multiple planes, specifically hip flexion and ankle DF Machine Hoop Maker Helper Goal (LTG) LE MMT to be at least 4/5 in all planes in order to enable him to return to walking around his property without an assistive device LTG Duration 07/23/22 One Impairment Pt does not have an appropriate home exercise program Short Term Goal (STG) Pt to be independent and compliant with an appropriate HEP STG Duration 05/22/22 Assessment Summary Assessment Attempted to perform supine core strengthening exercises, but pt far too sore and pained in this posiiton to tolerate any exercises. Discussed performing PPT/TrA/Marching at home, pt able to position himself in supine in his own bed, provided handout. Physical Therapy Plan Frequency and Duration Frequency of Treatment 1-2x/week Plan of Care Start Date 04/24/22 Plan of Care End Date 07/23/22 Therapeutic Interventions Therapeutic Interventions Balance Training,Home Exercise Program,Manual Therapy, Neuromuscular Re-education, Patient/Caregiver Education, Self-Care/Home Management,Soft Tissue Mobilization, Therapeutic Activities, Therapeutic Exercises Modalities Cold Pack/Ice Massage,Hot Packs Next Visit Focus/Plan Next Note Type Treatment Note Next Visit Plan Review stretching, add wall posture and balance activities . POC: LE strengthening, balance and gait training, flexibility exercises, activity toelrance
--- NOTE | 2022-06-12 13:50 | PT.OTN ---
Current Diagnoses Other chronic pain (06/12/22) Unspecified kyphosis, thoracolumbar region (06/12/22) Other specified deforming dorsopathies, thoracolumbar region (06/12/22) Ankylosing spondylitis of lumbosacral region (06/12/22) Other spondylosis with radiculopathy, lumbar region (06/12/22) Spinal stenosis, lumbar region with neurogenic claudication (06/12/22) Other intervertebral disc degeneration, lumbar region (06/12/22) Lumbago with sciatica, right side (06/12/22) Lumbago with sciatica, left side (06/12/22) Arthrodesis status (06/12/22) Physical Therapy Treatment Note PT-OP-A Visit Information Start: 04/24/22 17:35 Freq: Status: Active Protocol: Document 06/12/22 13:07 SP (Rec: 06/12/22 13:52 SP [id number]) Out-Patient Physical Therapy Visit Information Visit Information Visit Type Treatment Note Visit Note JOHN Dillard observed tx and provided feedback as needed with permission of pt while under instruction of RADHA Kim. Visit Start Time 13:07 Visit Stop Time 13:50 Total Visit Minutes 43 Visit Number 7 Number of HOUSEKEEPER CLEANING COOKING Visits 1 Evaluation Information Evaluation Date 04/24/22 PT-OP-B Current Condition Start: 04/24/22 17:35 Freq: Status: Active Protocol: Document 04/24/22 09:45 DCW (Rec: 04/24/22 17:57 DCW [id number]) Current Condition History of Current Condition Onset Date 03/07/22 Current Complaints Pain, limited mobility, difficulty walking s/p lumbar fusion History of Current Condition Pt is a 76 year old male presenting s/p lumbar fusion on 03/07/22. Pt returned home following surgery on 03/12, and began home health PT on 03/15. Pt reports he has been compliant with his HEP, however admits that it was getting too easy, so I tried to do more, and probably got a bit carried away. Notes he strained his back, had taken ten days off of his exercises, but restarted last week, and is feeling pretty good with his exercises. Goes out walking 4/5 mile 2x/day, which helps him feel better. Is currently using a 4WW to get around. Was getting away from using an assistive device, but over the past few weeks, has been having instances of right hip pain where it occasionally feels like it is going to give out, so he is a little scared to do much walking without the support of a walker. Pt still wearing a back brace when up and walking , reports he was instructed to use it for three months post- op. Additionally notes that he has a pressure ulcer on his left buttock, for which he is receiving treatment at wound care, but because of this wound, he is unable to sit for extended periods of time, so he has been up walking more than expected. Prior Treatments and Tests Home Health PT: Beginning HEP: Side-stepping at counter, standing hip abduction, marching, toe/heel raises, sit <->stand, seated add ball squeeze, seated resisted hip abd. 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 PT-OP-C Subjective Start: 04/24/22 17:35 Freq: Status: Active Protocol: Document 06/12/22 13:07 SP (Rec: 06/12/22 13:52 SP [id number]) OP-PT Subjective Patient Comments Patient Comments Pt reports being sore in shoulder after last tx. It doesn't last long. He reports his L shld get irritated sometimes at rep 5 so comes back later in day to complete. He states can't perform supine exercises in PT due to firm tables is more challenging getting on/off and causes more pain but in bed at home doing well. He purchased a BOSU for home and positioned next to TM for added support, a good challenge for home progression in balance. PT-OP-E Functional Tests Start: 04/24/22 17:35 Freq: Status: Active Protocol: Document 04/24/22 09:45 DCW (Rec: 04/24/22 17:57 DCW [id number]) Functional Tests 6 Minute Walk Test Distance 1198' Device Used 4WW Comments 3.3 ft/sec Five Times Sit to Stand Test Score 22.74 Timed Up and Go (TUG) Score 17.92 Comments Three-trial average (19.64, 17 .47, 16.65) TUG Impairment Rating 80 to <100% Impaired (Score 18 -19) PT-OP-M Strength Start: 04/24/22 17:35 Freq: Status: Active Protocol: Document 04/24/22 09:45 DCW (Rec: 04/24/22 17:58 DCW [id number]) Hip Strength Hip Manual Muscle Testing Right Flexion (L2) 3+ Fair+ Abduction 4 Good Adduction 4+ Good+ Left Flexion (L2) 3+ Fair+ Abduction 4 Good Adduction 4+ Good+ Knee Strength Knee Manual Muscle Testing Right Flexion (S2) 4+ Good+ Extension (L3) 5 Normal Left Flexion (S2) 4+ Good+ Extension (L3) 5 Normal Ankle/Foot Strength Ankle and Foot Manual Muscle Testing Right Dorsiflexion (L4) 3+ Fair+ Left Dorsiflexion (L4) 3+ Fair+ PT-OP-Q Treatments Start: 04/24/22 17:35 Freq: Status: Active Protocol: Document 06/12/22 13:07 SP (Rec: 06/12/22 13:52 SP [id number]) Cardio Equipment Recumbent Elliptical ([employer]) Duration (Minutes) 6 Resistance 4 Seat Position 11 Other LEs Gym Equipment Shuttle Recovery Unilateral Squats Details lessed knee flexion, cued core fac Resistance 50# (one new)> (2 old bands) Shuttle Recovery Platform Stable Reps/Time x25 Bilateral Squats Resistance 100# (one new)>87# (1 new band ) Shuttle Recovery Platform Stable Reps/Time x20 total Therapeutic Exercises Sitting Exercises eccentric STS Sitting Exercise Name add to HEP Resistance AROM Equipment Used mesh chair + blue cushion, BUE > R UE support Reps/Minutes 2x5 reps Comments cued hip hinge eccentric sit, UE support needed Gait Training Gait Activity in mirror Device Used Trek pole vs no AD Level of Assistance S Surface use mirror self feedback Distance/Duration 20 ft x4 laps Treatment Focus posture, trunk alignment Comments cued taller posturing, centering over LLE PHU, core fac. Improved with trek pole support vs none. Ed progression from 4WW better quality use of RUE support vs none to allow endurance and spinal stability. Self-Care/Home Management Treatment Education Patient Education Body Mechanics,Home Exercise Program,Posture Other Education Extra time spent education on hip hinge and proper mechanics and least amount UE support required to progress strengthening and functional independence in mobility on/ off toilet without use of grab bars. 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 LTG Duration 07/23/22 Two Impairment LE MMT in <4/5 in multiple planes, specifically hip flexion and ankle DF Seismograph Observer Goal (LTG) LE MMT to be at least 4/5 in all planes in order to enable him to return to walking around his property without an assistive device LTG Duration 07/23/22 One Impairment Pt does not have an appropriate home exercise program Short Term Goal (STG) Pt to be independent and compliant with an appropriate HEP STG Duration 05/22/22 Assessment Summary Assessment Pt improved hip hinge slow eccentric descent with out UE support to 20 surface, requires min support of 1 UE to come to standing. HOUSEKEEPER CLEANING COOKING provided education carryover to demonstration/on off toilet . Good response to use of trek pole in RUE for posturing and spinal stability this tx vs his experience in past less discomfort on back. Physical Therapy Plan Frequency and Duration Frequency of Treatment 1-2x/week Plan of Care Start Date 04/24/22 Plan of Care End Date 07/23/22 Therapeutic Interventions Therapeutic Interventions Balance Training,Home Exercise Program,Manual Therapy, Neuromuscular Re-education, Patient/Caregiver Education, Self-Care/Home Management,Soft Tissue Mobilization, Therapeutic Activities, Therapeutic Exercises Modalities Cold Pack/Ice Massage,Hot Packs Next Visit Focus/Plan Next Note Type Treatment Note Next Visit Plan Improvement in STS, safety use of BOSU for home balance progression carryovery. Review stretching, add wall posture and balance activities. Gait use of trek pole. POC: LE strengthening, balance and gait training, flexibility exercises, activity toelrance
--- NOTE | 2022-06-16 11:54 | PT-OP ANOTE ---
Did not see. Called pt re: missed appt and he stated he did not feel well this morning and had fallen back asleep and just got up. He apologizes for missed appt and declines to reschedule. Confirmed one scheduled visit 06/21 at 4pm.
--- NOTE | 2022-06-21 16:45 | PT.OTN ---
Current Diagnoses Other chronic pain (06/21/22) Unspecified kyphosis, thoracolumbar region (06/21/22) Other specified deforming dorsopathies, thoracolumbar region (06/21/22) Ankylosing spondylitis of lumbosacral region (06/21/22) Other spondylosis with radiculopathy, lumbar region (06/21/22) Spinal stenosis, lumbar region with neurogenic claudication (06/21/22) Other intervertebral disc degeneration, lumbar region (06/21/22) Lumbago with sciatica, right side (06/21/22) Lumbago with sciatica, left side (06/21/22) Arthrodesis status (06/21/22) Physical Therapy Treatment Note PT-OP-A Visit Information Start: 04/24/22 17:35 Freq: Status: Active Protocol: Document 06/21/22 16:00 DCW (Rec: 06/21/22 16:45 DCW [id number]) Out-Patient Physical Therapy Visit Information Visit Information Visit Type Treatment Note Visit Start Time 16:00 Visit Stop Time 16:45 Total Visit Minutes 45 Visit Number 8 Number of EVP SALES Visits 0 Evaluation Information Evaluation Date 04/24/22 PT-OP-B Current Condition Start: 04/24/22 17:35 Freq: Status: Active Protocol: Document 04/24/22 09:45 DCW (Rec: 04/24/22 17:57 DCW [id number]) Current Condition History of Current Condition Onset Date 03/07/22 Current Complaints Pain, limited mobility, difficulty walking s/p lumbar fusion History of Current Condition Pt is a 76 year old male presenting s/p lumbar fusion on 03/07/22. Pt returned home following surgery on 03/12, and began home health PT on 03/15. Pt reports he has been compliant with his HEP, however admits that it was getting too easy, so I tried to do more, and probably got a bit carried away. Notes he strained his back, had taken ten days off of his exercises, but restarted last week, and is feeling pretty good with his exercises. Goes out walking 4/5 mile 2x/day, which helps him feel better. Is currently using a 4WW to get around. Was getting away from using an assistive device, but over the past few weeks, has been having instances of right hip pain where it occasionally feels like it is going to give out, so he is a little scared to do much walking without the support of a walker. Pt still wearing a back brace when up and walking , reports he was instructed to use it for three months post- op. Additionally notes that he has a pressure ulcer on his left buttock, for which he is receiving treatment at wound care, but because of this wound, he is unable to sit for extended periods of time, so he has been up walking more than expected. Prior Treatments and Tests Home Health PT: Beginning HEP: Side-stepping at counter, standing hip abduction, marching, toe/heel raises, sit <->stand, seated add ball squeeze, seated resisted hip abd. 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 PT-OP-C Subjective Start: 04/24/22 17:35 Freq: Status: Active Protocol: Document 06/21/22 16:00 DCW (Rec: 06/21/22 16:45 DCW [id number]) OP-PT Subjective Patient Comments Patient Comments Has appt with ortho surgeon Sunday re:Shoulder, hoping for injection. PT-OP-E Functional Tests Start: 04/24/22 17:35 Freq: Status: Active Protocol: Document 04/24/22 09:45 DCW (Rec: 04/24/22 17:57 DCW [id number]) Functional Tests 6 Minute Walk Test Distance 1198' Device Used 4WW Comments 3.3 ft/sec Five Times Sit to Stand Test Score 22.74 Timed Up and Go (TUG) Score 17.92 Comments Three-trial average (19.64, 17 .47, 16.65) TUG Impairment Rating 80 to <100% Impaired (Score 18 -19) PT-OP-M Strength Start: 04/24/22 17:35 Freq: Status: Active Protocol: Document 04/24/22 09:45 DCW (Rec: 04/24/22 17:58 DCW [id number]) Hip Strength Hip Manual Muscle Testing Right Flexion (L2) 3+ Fair+ Abduction 4 Good Adduction 4+ Good+ Left Flexion (L2) 3+ Fair+ Abduction 4 Good Adduction 4+ Good+ Knee Strength Knee Manual Muscle Testing Right Flexion (S2) 4+ Good+ Extension (L3) 5 Normal Left Flexion (S2) 4+ Good+ Extension (L3) 5 Normal Ankle/Foot Strength Ankle and Foot Manual Muscle Testing Right Dorsiflexion (L4) 3+ Fair+ Left Dorsiflexion (L4) 3+ Fair+ PT-OP-Q Treatments Start: 04/24/22 17:35 Freq: Status: Active Protocol: Document 06/21/22 16:00 DCW (Rec: 06/21/22 16:45 DCW [id number]) Gym Equipment Shuttle Recovery Unilateral Squats Resistance 50# (one new) Shuttle Recovery Platform Stable Reps/Time x25 Bilateral Squats Resistance 87# (1 new band) Shuttle Recovery Platform Stable Reps/Time x20 total Shuttle Balance Red Details WBOS, Staggered Self-Care/Home Management Treatment Education Other Education HEP review, discussion of pacing and energy conservation , gait difficulties, fall avoidence. 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 LTG Duration 07/23/22 Two Impairment LE MMT in <4/5 in multiple planes, specifically hip flexion and ankle DF Promotions Assistant Goal (LTG) LE MMT to be at least 4/5 in all planes in order to enable him to return to walking around his property without an assistive device LTG Duration 07/23/22 One Impairment Pt does not have an appropriate home exercise program Short Term Goal (STG) Pt to be independent and compliant with an appropriate HEP STG Duration 05/22/22 Assessment Summary Assessment Spent much of today's session reviewing current HEP and pt's ongoing concerns with overall recovery, falls risk, and continued needs with PT. Pt would benefit from continued post-op treatment in PT, however pt asking to put off further follow-up visits until he is able to discuss his shoulder with the Ortho next week. Physical Therapy Plan Frequency and Duration Frequency of Treatment 1-2x/week Plan of Care Start Date 04/24/22 Plan of Care End Date 07/23/22 Therapeutic Interventions Therapeutic Interventions Balance Training,Home Exercise Program,Manual Therapy, Neuromuscular Re-education, Patient/Caregiver Education, Self-Care/Home Management,Soft Tissue Mobilization, Therapeutic Activities, Therapeutic Exercises Modalities Cold Pack/Ice Massage,Hot Packs Next Visit Focus/Plan Next Note Type Treatment Note Next Visit Plan Improvement in STS, safety use of BOSU for home balance progression carryovery. Review stretching, add wall posture and balance activities. Gait use of trek pole. POC: LE strengthening, balance and gait training, flexibility exercises, activity toelrance
--- NOTE | 2022-12-11 14:31 | PT.OPDS ---
Current Diagnoses Other chronic pain (06/21/22) Unspecified kyphosis, thoracolumbar region (06/21/22) Other specified deforming dorsopathies, thoracolumbar region (06/21/22) Ankylosing spondylitis of lumbosacral region (06/21/22) Other spondylosis with radiculopathy, lumbar region (06/21/22) Spinal stenosis, lumbar region with neurogenic claudication (06/21/22) Other intervertebral disc degeneration, lumbar region (06/21/22) Lumbago with sciatica, right side (06/21/22) Lumbago with sciatica, left side (06/21/22) Arthrodesis status (06/21/22) Visit Care Team Role Provider Type Javier Clark MD Family Provider Physician Primary Care Provider Specialty: Family Practice Address: [facility] [place], [facility] Email: [email or web address] MARJORIE Garcia Attending Provider Non-Staff Referring Provider Specialty: Medical Address: [address] [place] [address], [facility] Email: Visit Number Visit Number 8 Discharge Summary PT-OP-B Current Condition Start: 04/24/22 17:35 Freq: Status: Active Protocol: Document 04/24/22 09:45 DCW (Rec: 04/24/22 17:57 DCW [id number]) Current Condition History of Current Condition Onset Date 03/07/22 Current Complaints Pain, limited mobility, difficulty walking s/p lumbar fusion History of Current Condition Pt is a 76 year old male presenting s/p lumbar fusion on 03/07/22. Pt returned home following surgery on 03/12, and began home health PT on 03/15. Pt reports he has been compliant with his HEP, however admits that it was getting too easy, so I tried to do more, and probably got a bit carried away. Notes he strained his back, had taken ten days off of his exercises, but restarted last week, and is feeling pretty good with his exercises. Goes out walking 4/5 mile 2x/day, which helps him feel better. Is currently using a 4WW to get around. Was getting away from using an assistive device, but over the past few weeks, has been having instances of right hip pain where it occasionally feels like it is going to give out, so he is a little scared to do much walking without the support of a walker. Pt still wearing a back brace when up and walking , reports he was instructed to use it for three months post- op. Additionally notes that he has a pressure ulcer on his left buttock, for which he is receiving treatment at wound care, but because of this wound, he is unable to sit for extended periods of time, so he has been up walking more than expected. Prior Treatments and Tests Home Health PT: Beginning HEP: Side-stepping at counter, standing hip abduction, marching, toe/heel raises, sit <->stand, seated add ball squeeze, seated resisted hip abd. 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 PT-OP-C Subjective Start: 04/24/22 17:35 Freq: Status: Active Protocol: Document 06/21/22 16:00 DCW (Rec: 06/21/22 16:45 DCW [id number]) OP-PT Subjective Patient Comments Patient Comments Has appt with ortho surgeon Sunday re:Shoulder, hoping for injection. PT-OP-E Functional Tests Start: 04/24/22 17:35 Freq: Status: Active Protocol: Document 04/24/22 09:45 DCW (Rec: 04/24/22 17:57 DCW [id number]) Functional Tests 6 Minute Walk Test Distance 1198' Device Used 4WW Comments 3.3 ft/sec Five Times Sit to Stand Test Score 22.74 Timed Up and Go (TUG) Score 17.92 Comments Three-trial average (19.64, 17 .47, 16.65) TUG Impairment Rating 80 to <100% Impaired (Score 18 -19) PT-OP-M Strength Start: 04/24/22 17:35 Freq: Status: Active Protocol: Document 04/24/22 09:45 DCW (Rec: 04/24/22 17:58 DCW [id number]) Hip Strength Hip Manual Muscle Testing Right Flexion (L2) 3+ Fair+ Abduction 4 Good Adduction 4+ Good+ Left Flexion (L2) 3+ Fair+ Abduction 4 Good Adduction 4+ Good+ Knee Strength Knee Manual Muscle Testing Right Flexion (S2) 4+ Good+ Extension (L3) 5 Normal Left Flexion (S2) 4+ Good+ Extension (L3) 5 Normal Ankle/Foot Strength Ankle and Foot Manual Muscle Testing Right Dorsiflexion (L4) 3+ Fair+ Left Dorsiflexion (L4) 3+ Fair+ PT-OP-T Assessment and Plan Start: 04/24/22 17:35 Freq: Status: Active Protocol: Document 12/11/22 14:30 DCW (Rec: 12/11/22 14:31 DCW [id number]) Physical Therapy Assessment Assessment Summary Assessment Pt has not been seen in five months, has no follow-up visits scheduled. Pt will be discharged from skilled PT at this time, will require a new referral in order to return. Physical Therapy Plan Discharge Physical Therapy Discharge Reasons No Longer Attending PT Next Visit Focus/Plan Next Note Type Discharge Summary
== END 2022-12-14 09:58 | disposition home or self-care (01) ==
LOC: PHYS 16:00
PROVIDERS: Absent Provider Family Medicine; Family Provider Family Medicine; PCP Family Medicine; Referring Provider Nurse Practitioner; Visit Provider Nurse Practitioner
DX: Z98.1 Arthrodesis status (principal); M40.205 Unspecified kyphosis, thoracolumbar region; M47.26 Other spondylosis with radiculopathy, lumbar region; M48.062 Spinal stenosis, lumbar region with neurogenic claudication; M51.36 Other intervertebral disc degeneration, lumbar region; M54.42 Lumbago with sciatica, left side; M54.41 Lumbago with sciatica, right side; G89.29 Other chronic pain; M43.8X5 Other specified deforming dorsopathies, thoracolumbar region; M45.7 Ankylosing spondylitis of lumbosacral region
CPT/HCPCS: 97110; 97112; 97162; 97535

== ENCOUNTER → 2022-06-24 11:49 | Outpatient (CLI) | payer MEDICARE, OTHER, SELFPAY ==
--- NOTE | 2022-06-24 11:52 | DI.CT.S_ITS ---
PROCEDURE: CT UE LT WO CON INDICATIONS: LEFT ARM PAIN TECHNIQUE: Noncontrast 3 mm axial sections acquired of the left upper extremity , with coronal and sagittal reformats. COMPARISON: None. FINDINGS: Image quality: Excellent. Bones: There are no visualized fractures or dislocations. No suspicious osseous lesions are identified. There is severe acromioclavicular as well as moderate glenohumeral degenerative narrowing. Soft tissues: Visualized portions of the left lung are clear. Visualized portions of the heart are enlarged. Partially visualized pacemaker is present. IMPRESSION: Acromioclavicular and glenohumeral arthritic change. No visualized fracture. Dictated by: Sindhu Abbasi M.D. on 06/24/2022 at 13:52 Approved by: Sindhu Abbasi M.D. on 06/24/2022 at 13:54
== END ==
PROVIDERS: Family Provider Family Medicine; PCP Family Medicine; Referring Provider Orthopaedic Surgery; Visit Provider Orthopaedic Surgery
DX: S46.012S Strain of muscle(s) and tendon(s) of the rotator cuff of left shoulder, sequela (principal)
CPT/HCPCS: 73200

== ENCOUNTER → 2023-03-05 12:00 | Outpatient (ROUT) | payer MEDICARE, OTHER, SELFPAY ==
[2023-03-05 13:01] LABS: Influenza A - CEPHEID Flu A NEGATIVE (NEGATIVE); Influenza B - CEPHEID Flu B NEGATIVE (NEGATIVE); Respiratory Syncytial Virus Negative (Negative)
[2023-03-05 13:09] LABS: COVID-19 CEPHEID 4-PLEX PCR Negative (Negative)
== END ==
PROVIDERS: Family Provider Family Medicine; PCP Family Medicine; Visit Provider Family Medicine
DX: R05.1 Acute cough (principal); R06.2 Wheezing; R06.02 Shortness of breath
CPT/HCPCS: 0241U

== ENCOUNTER → 2023-03-28 14:13 | Outpatient (CLI) | payer MEDICARE, OTHER, SELFPAY ==
--- NOTE | 2023-03-28 14:16 | DI.CT.S_ITS ---
PROCEDURE: CT SHOULDER LEFT WITHOUT CON INDICATIONS: Primary osteoarthritis, left shoulder TECHNIQUE: Noncontrast 1-1.5 mm thick sections acquired from the acromioclavicular joint to the inferior scapula, with coronal and sagittal reformatting. COMPARISON: None. FINDINGS: Image quality: Excellent. Bones: Moderate acromioclavicular joint osteoarthritis is seen with joint space narrowing, subchondral sclerosis and downward osteophyte formation depressing the musculotendinous junction of supraspinatus. Moderate to severe glenohumeral joint osteoarthritis is seen with near complete loss of joint space, extensive subchondral sclerosis and inferior marginal osteophyte formation. No acute shoulder fracture or dislocation. No suspicious bony lesions. The visualized left upper ribs are intact. Soft tissues: There is no gross full-thickness rotator cuff tendon rupture. Mild supraspinatus muscle atrophy is seen on sagittal images. No abnormal soft tissue calcifications. No soft tissue mass or drainable fluid collection. There is small to moderate joint effusion and subacromial subdeltoid bursal fluid, no calcified intra-articular loose bodies. No left axillary lymphadenopathy is seen. The visualized left lung field is clear. Left chest wall pacemaker is noted. IMPRESSION: 1. Moderate to severe glenohumeral joint osteoarthritis and moderate acromioclavicular joint osteoarthritis. No acute shoulder fracture or dislocation. No suspicious bony lesions. 2. No gross full-thickness rotator cuff tendon rupture. Mild supraspinatus muscle atrophy. No abnormal soft tissue calcifications. No soft tissue mass or drainable fluid collection. 3. Small to moderate joint effusion and subacromial subdeltoid bursal fluid. No calcified intra-articular loose bodies. Dictated by: Chsae Vallejo M.D. on 03/28/2023 at 16:01 Approved by: Chase Vallejo M.D. on 03/28/2023 at 16:05
== END ==
PROVIDERS: Family Provider Family Medicine; PCP Family Medicine; Referring Provider Orthopaedic Surgery; Visit Provider Orthopaedic Surgery
DX: M19.012 Primary osteoarthritis, left shoulder (principal); M25.412 Effusion, left shoulder
CPT/HCPCS: 73200

== ENCOUNTER → 2023-05-11 11:51 | Outpatient (CLI) | payer MEDICARE, OTHER, SELFPAY | LOC: RESP 11:53 | PROVIDERS: Family Provider Family Medicine; PCP Family Medicine; Referring Provider Family Medicine; Visit Provider Family Medicine | DX: R06.09 Other forms of dyspnea (principal); Z87.891 Personal history of nicotine dependence; J98.8 Other specified respiratory disorders | CPT/HCPCS: 94060; 94726; 94729 ==

== ENCOUNTER → 2023-07-26 13:05 | Outpatient (CLI) | payer MEDICARE, OTHER, SELFPAY | PROVIDERS: Family Provider Family Medicine; PCP Family Medicine; Referring Provider Family Medicine; Visit Provider Surgery | DX: E11.621 Type 2 diabetes mellitus with foot ulcer (principal); L97.522 Non-pressure chronic ulcer of other part of left foot with fat layer exposed; L97.516 Non-pressure chronic ulcer of other part of right foot with bone involvement without evidence of necrosis; R60.0 Localized edema; L89.323 Pressure ulcer of left buttock, stage 3; Z79.2 Long term (current) use of antibiotics; I25.10 Atherosclerotic heart disease of native coronary artery without angina pectoris; I96 Gangrene, not elsewhere classified | CPT/HCPCS: 11042; 87070; 87075; 87077; 87186; 87205; 99214 ==

== ENCOUNTER → 2023-07-26 14:30 | Outpatient (CLI) | payer MEDICARE, OTHER, SELFPAY ==
--- NOTE | 2023-07-26 14:33 | DI.RAD.S_ITS ---
PROCEDURE: XR FOOT LT MIN 3V INDICATIONS: Eval for osteo TECHNIQUE: 3 views of the foot were acquired. COMPARISON: None. FINDINGS: Bones: Disarticulation the 1st PIP joint. The distal 2nd phalanx is not well visualized. No definite bony erosion of the visualized bones. Soft tissues: No tibiotalar joint effusion. Achilles tendon appears normal. IMPRESSION: No definite bony erosion although the 2nd distal phalanx is not well visualized. If there is concern for osteomyelitis at this site, consider MRI. Dictated by: Flako Encinas M.D. on 07/26/2023 at 16:55 Approved by: Flako Encinas M.D. on 07/26/2023 at 16:57
--- NOTE | 2023-07-26 14:33 | DI.RAD.S_ITS ---
PROCEDURE: XR FOOT RT MIN 3V INDICATIONS: Eval for osteo TECHNIQUE: 3 views of the foot were acquired. COMPARISON: None. FINDINGS: Bones: Lucency at the tip of the 1st distal phalanx. Soft tissues: No tibiotalar joint effusion. Achilles tendon appears normal. IMPRESSION: Lucency at the tip of the distal 1st phalanx seen on one view only. Osteomyelitis not excluded. Consider MRI with contrast for confirmation. Dictated by: Flako Encinas M.D. on 07/26/2023 at 16:57 Approved by: Flako Encinas M.D. on 07/26/2023 at 17:01
[2023-07-26 15:49] LABS: Add Manual Diff / Slide Review NO; Basophils Absolute Auto 100 /uL (0-100); Basophils Percent Auto 0.7 % (0-2); Eosinophils Absolute Auto 300 /uL (0-450); Eosinophils Percent Auto 2.4 % (2-4); Hematocrit 33.6 % (41-53); Hemoglobin 10.3 g/dL (13.5-17.5); Lymphocytes Absolute Auto 2700 /uL (1100-4500); Lymphocytes Percent Auto 25.7 % (25-40); Mean Corpuscular HGB Conc 30.6 % (30-36); Mean Corpuscular Hemoglobin 22.7 PG (26-34); Mean Corpuscular Volume 74.2 fL (80-100); Monocytes Absolute Auto 900 /uL (0-900); Monocytes Percent Auto 8.9 % (3-14); Neutrophils Absolute Auto 6600 /uL (1500-7000); Neutrophils Percent Auto 62.3 % (50-75); Platelet Count 295 X10^3/uL (150-400); Red Blood Cell Count 4.53 X10^6/uL (4.5-5.9); Red Cell Distribution Width 19.1 % (11.6-14.8); White Blood Cell Count 10.7 X10^3/uL (4.5-11.0)
[2023-07-26 16:20] LABS: Erythrocyte Sedimentation Rate 40 MM/HR (0-15)
[2023-07-26 16:41] LABS: Hemoglobin A1C% w Est Avg Glu 7.7 % (4.0-6.0)
[2023-07-26 16:43] LABS: Alanine Aminotransferase 13 IU/L (<50); Albumin 3.9 g/dL (3.5-5.0); Albumin Globulin Ratio 1.2 (1.0-2.8); Alkaline Phosphatase 62 U/L (38-126); Aspartate Aminotransferase 24 IU/L (17-59); BUN Creatinine Ratio 24.5 (6-22); Blood Urea Nitrogen 25 mg/dL (9-20); C-Reactive Protein Quant 1.6 mg/dL (<1.0); Calcium 8.3 mg/dL (8.4-10.2); Carbon Dioxide 31 mmol/L (22-32); Chloride 101 mmol/L (98-107); Estimated Glomerular Filt Rate > 60 mL/min (>60); Globulin 3.2 g/dL (1.7-4.1); Glucose 149 mg/dL (80-110); HEMOLYSIS 31 (0-50); Potassium 4.4 mmol/L (3.4-5.1); Sodium 138 mmol/L (137-145); Total Protein 7.1 g/dL (6.3-8.2)
== END ==
PROVIDERS: Family Provider Family Medicine; PCP Family Medicine; Referring Provider Surgery; Visit Provider Surgery
DX: E11.621 Type 2 diabetes mellitus with foot ulcer (principal)
CPT/HCPCS: 36415; 73630; 80053; 83036; 85025; 85651; 86140; 87070; 87075; 87205

== ENCOUNTER → 2023-07-31 07:07 | Outpatient (CLI) | payer MEDICARE, OTHER, SELFPAY ==
--- NOTE | 2023-07-31 07:09 | DI.US.S_ITS ---
PROCEDURE: US ARTERIAL DUPLEX LE BI INDICATIONS: eval arterial status TECHNIQUE: Color and pulse Doppler interrogation was performed of both lower extremity arterial systems, with image documentation. COMPARISON: [facility], US, US ARTERIAL DUPLEX LE BI, 10/06/2021, 9:16. FINDINGS: Right lower extremity: Common femoral artery: 75 cm/sec, with triphasic flow. Deep femoral artery: 31 cm/sec, with triphasic flow. Proximal superficial femoral artery: 57 cm/sec, with triphasic flow. Mid superficial femoral artery: 64 cm/sec, with biphasic flow. Distal superficial femoral artery: 43 cm/sec, with triphasic flow. Popliteal artery: 40 cm/sec, with biphasic flow. Posterior tibial artery: 60/81/82 cm/sec, with triphasic flow. Anterior tibial artery/dorsalis pedis: 79/63 cm/sec, with triphasic/triphasic flow. Law-scale imaging description: Mild scattered atherosclerotic plaque. Left lower extremity: Common femoral artery: 69 cm/sec, with triphasic flow. Deep femoral artery: 29 cm/sec, with biphasic flow. Proximal superficial femoral artery: 65 cm/sec, with triphasic flow. Mid superficial femoral artery: 54 cm/sec, with triphasic flow. Distal superficial femoral artery: 41 cm/sec, with triphasic flow. Popliteal artery: 54 cm/sec, with triphasic flow. Posterior tibial artery: 60 cm/sec, with triphasic flow. Anterior tibial artery/dorsalis pedis: 69/42 cm/sec, with triphasic/triphasic flow. Law-scale imaging description: Mild scattered atherosclerotic plaque. IMPRESSION: Multiphasic waveforms of the bilateral lower extremity arterial vasculature with no velocity shift to suggest hemodynamically significant stenosis. Dictated by: Rio Bahena M.D. on 07/31/2023 at 16:11 Approved by: Rio Bahena M.D. on 07/31/2023 at 16:32
== END ==
LOC: US 07:08
PROVIDERS: Family Provider Family Medicine; PCP Family Medicine; Referring Provider Surgery; Visit Provider Surgery
DX: E11.621 Type 2 diabetes mellitus with foot ulcer (principal); L97.519 Non-pressure chronic ulcer of other part of right foot with unspecified severity; L97.529 Non-pressure chronic ulcer of other part of left foot with unspecified severity
CPT/HCPCS: 93925

== ENCOUNTER → 2023-08-02 15:29 | Outpatient (CLI) | payer MEDICARE, OTHER, SELFPAY | PROVIDERS: Family Provider Family Medicine; PCP Family Medicine; Referring Provider Family Medicine; Visit Provider Surgery | DX: E11.621 Type 2 diabetes mellitus with foot ulcer (principal); E11.42 Type 2 diabetes mellitus with diabetic polyneuropathy; L97.512 Non-pressure chronic ulcer of other part of right foot with fat layer exposed; L97.522 Non-pressure chronic ulcer of other part of left foot with fat layer exposed; R60.0 Localized edema; I25.10 Atherosclerotic heart disease of native coronary artery without angina pectoris | CPT/HCPCS: 11042; 99213 ==

== ENCOUNTER → 2023-08-02 15:55 | Outpatient (CLI) | payer MEDICARE, OTHER, SELFPAY ==
--- NOTE | 2023-08-02 15:56 | DI.US.S_ITS ---
PROCEDURE: US PERIPH VENOUS LOW EXTREM BI INDICATIONS: EDEMA TECHNIQUE: Real-time imaging, as well as color and pulse Doppler interrogation, were performed of the deep veins of both legs from the inguinal ligament to the popliteal fossa, with documentation of the visualized calf veins. COMPARISON: None. FINDINGS: Right: The common femoral, femoral, popliteal, and the visualized calf veins are normally compressible, and free of intraluminal thrombus. Color and pulse Doppler demonstrate normal phasic intravascular flow. There is normal augmentation response to distal compression maneuver. Left: The common femoral, femoral, popliteal, and the visualized calf veins are normally compressible, and free of intraluminal thrombus. Color and pulse Doppler demonstrate normal phasic intravascular flow. There is normal augmentation response to distal compression maneuver. IMPRESSION: No findings of deep venous thrombosis in either lower extremity. Dictated by: Flako Encinas M.D. on 08/02/2023 at 16:35 Approved by: Flako Encinas M.D. on 08/02/2023 at 16:35
== END ==
PROVIDERS: Family Provider Family Medicine; PCP Family Medicine; Referring Provider Surgery; Visit Provider Surgery
DX: R60.0 Localized edema (principal); E11.621 Type 2 diabetes mellitus with foot ulcer; E11.42 Type 2 diabetes mellitus with diabetic polyneuropathy; L97.512 Non-pressure chronic ulcer of other part of right foot with fat layer exposed; L97.522 Non-pressure chronic ulcer of other part of left foot with fat layer exposed; I25.10 Atherosclerotic heart disease of native coronary artery without angina pectoris
CPT/HCPCS: 11042; 93970

== ENCOUNTER → 2023-08-09 08:52 | Outpatient (CLI) | payer MEDICARE, OTHER, SELFPAY | PROVIDERS: Family Provider Family Medicine; PCP Family Medicine; Referring Provider Family Medicine; Visit Provider Physician Assistant | DX: E11.621 Type 2 diabetes mellitus with foot ulcer (principal); L97.512 Non-pressure chronic ulcer of other part of right foot with fat layer exposed; R60.0 Localized edema; L84 Corns and callosities; I25.10 Atherosclerotic heart disease of native coronary artery without angina pectoris | CPT/HCPCS: 11042; 99213 ==

== ENCOUNTER → 2023-08-14 15:58 | Outpatient (CLI) | payer MEDICARE, OTHER, SELFPAY ==
--- NOTE | 2023-08-14 15:59 | DI.US.S_ITS ---
PROCEDURE: US ABDOMEN LIMITED INDICATIONS: Intra-abdominal and pelvic swelling TECHNIQUE: Real-time focused scanning was performed of the abdomen, with image documentation. COMPARISON: [facility], , US ABDOMEN LIMITED, 09/27/2021, 12:21. FINDINGS: The liver is normal in size and demonstrates no suspicious lesions. Cholecystectomy. There is no biliary dilatation, the common bile duct measures 5 mm. No significant pancreatic abnormality is seen on these images. A significant right-sided pleural effusion is seen, with echogenic debris. No grant ascites is seen. A hypoechoic focus can be seen measuring 6.5 x 5 x 6.1 cm at the cholecystectomy scar. No abnormal vascularity can be seen. IMPRESSION: There is a significant right-sided pleural effusion. No grant ascites is seen. Status post cholecystectomy, without biliary dilatation. At the site of the cholecystectomy scar, there is a hypoechoic focus, which may be related to a hernia or soft tissue scarring. - If clinically appropriate, please consider a follow-up CT of at least the abdomen with at least IV contrast for further evaluation Dictated by: Los Allan M.D. on 08/14/2023 at 17:59 Approved by: Los Allan M.D. on 08/14/2023 at 18:02
== END ==
PROVIDERS: Family Provider Family Medicine; PCP Family Medicine; Referring Provider Family Medicine; Visit Provider Family Medicine
DX: J90 Pleural effusion, not elsewhere classified (principal); R19.00 Intra-abdominal and pelvic swelling, mass and lump, unspecified site; Z90.49 Acquired absence of other specified parts of digestive tract
CPT/HCPCS: 76705

== ENCOUNTER → 2023-08-16 10:19 | Outpatient (CLI) | payer MEDICARE, OTHER, SELFPAY | PROVIDERS: Family Provider Family Medicine; PCP Family Medicine; Referring Provider Family Medicine; Visit Provider Surgery | DX: E11.621 Type 2 diabetes mellitus with foot ulcer (principal); L97.512 Non-pressure chronic ulcer of other part of right foot with fat layer exposed; L97.522 Non-pressure chronic ulcer of other part of left foot with fat layer exposed; L84 Corns and callosities; R60.0 Localized edema; I25.10 Atherosclerotic heart disease of native coronary artery without angina pectoris | CPT/HCPCS: 11042 ==

== ENCOUNTER → 2023-08-23 10:28 | Outpatient (CLI) | payer MEDICARE, OTHER, SELFPAY | LOC: WC 10:30 | PROVIDERS: Family Provider Family Medicine; PCP Family Medicine; Referring Provider Family Medicine; Visit Provider Surgery | DX: E11.621 Type 2 diabetes mellitus with foot ulcer (principal); L97.516 Non-pressure chronic ulcer of other part of right foot with bone involvement without evidence of necrosis; L97.522 Non-pressure chronic ulcer of other part of left foot with fat layer exposed; L53.9 Erythematous condition, unspecified; R60.0 Localized edema; L84 Corns and callosities; R21 Rash and other nonspecific skin eruption; I25.10 Atherosclerotic heart disease of native coronary artery without angina pectoris | CPT/HCPCS: 11042; 99213 ==

== ENCOUNTER → 2023-08-24 07:56 | Outpatient (CLI) | payer MEDICARE, OTHER, SELFPAY ==
--- NOTE | 2023-08-24 07:58 | DI.CT.S_ITS ---
PROCEDURE: CT ABDOMEN PELVIS W CON INDICATIONS: ABDOMINAL PAIN,SWELLING,VENTRAL HERNIA TECHNIQUE: After the administration of intravenous contrast, axial sections acquired from the lung bases to the pubic symphysis. Coronal and sagittal reformats were performed. For radiation dose reduction, the following was used: automated exposure control, adjustment of mA and/or kV according to patient size. COMPARISON: [facility], , ABDOMEN LIMITED, 08/14/2023, 16:23. FINDINGS: Image quality: Diagnostic. Lower Chest: There is a moderate right pleural effusion with right basilar atelectasis. Heart size is normal. Severe coronary artery calcification.. ABDOMEN: Liver: No solid mass. Gallbladder: Surgically absent. Biliary ducts: No biliary dilation. Pancreas: No ductal dilation. Spleen: Size is within normal limits. Adrenal Glands: No adrenal nodules. Kidneys and Ureters: Mild renal cortical thinning bilaterally. No hydronephrosis. No solid mass. Bilateral simple appearing renal cysts are present. No complex renal cystic lesion which requires follow up. Stomach and Bowel: Normal colonic caliber, without significant wall thickening. Diverticulosis. No acute diverticulitis. Peritoneum: No abnormal intraperitoneal fluid. No free air. Ventral Wall: There is atrophy of the right rectus muscle. There is bulging of the right anterior abdominal wall but no discrete ventral hernia. No significant ventral hernia. There is a small fat containing umbilical hernia. Abdominal Nodes: No retroperitoneal or mesenteric adenopathy by size criteria. Vessels: Aorta and inferior vena cava are normal in size. PELVIS: Pelvic Organs: Unremarkable. Bladder: Diffuse bladder wall thickening. Pelvic Nodes: No enlarged lymph nodes. Miscellaneous: No inguinal hernias are seen. Bones: No aggressive osseous abnormality. Extensive degenerative and postsurgical changes in lumbar spine. IMPRESSION: 1. Atrophy of the right rectus abdominis muscle and bulging right anterior abdominal wall. No discrete ventral hernia. 2. Diverticulosis without acute diverticulitis. 3. Moderate right pleural effusion with right basilar atelectasis. 4. Severe coronary artery atherosclerosis. Dictated by: Nisha Macario M.D. on 08/24/2023 at 11:41 Approved by: Nisha Macario M.D. on 08/24/2023 at 14:24
== END ==
LOC: CT 07:57
PROVIDERS: Family Provider Family Medicine; PCP Family Medicine; Referring Provider Family Medicine; Visit Provider Family Medicine
DX: K43.9 Ventral hernia without obstruction or gangrene (principal); J90 Pleural effusion, not elsewhere classified; J98.11 Atelectasis; K42.9 Umbilical hernia without obstruction or gangrene; N28.1 Cyst of kidney, acquired; I25.10 Atherosclerotic heart disease of native coronary artery without angina pectoris; K57.90 Diverticulosis of intestine, part unspecified, without perforation or abscess without bleeding; R10.31 Right lower quadrant pain; R19.00 Intra-abdominal and pelvic swelling, mass and lump, unspecified site; Z90.49 Acquired absence of other specified parts of digestive tract
CPT/HCPCS: 74177; Q9967

== ENCOUNTER → 2023-08-28 13:03 | Outpatient (CLI) | payer MEDICARE, OTHER, SELFPAY | LOC: WC 13:10 | PROVIDERS: Family Provider Family Medicine; PCP Family Medicine; Referring Provider Internal Medicine; Visit Provider Surgery | DX: E11.621 Type 2 diabetes mellitus with foot ulcer (principal); L97.512 Non-pressure chronic ulcer of other part of right foot with fat layer exposed; L97.526 Non-pressure chronic ulcer of other part of left foot with bone involvement without evidence of necrosis; R21 Rash and other nonspecific skin eruption; R60.0 Localized edema; L53.9 Erythematous condition, unspecified; I25.10 Atherosclerotic heart disease of native coronary artery without angina pectoris; Z79.899 Other long term (current) drug therapy | CPT/HCPCS: 11042 ==

== ENCOUNTER → 2023-09-05 10:21 | Outpatient (CLI) | payer MEDICARE, OTHER, SELFPAY | LOC: WC 10:22 | PROVIDERS: Family Provider Family Medicine; PCP Family Medicine; Referring Provider Family Medicine; Visit Provider Surgery | DX: E11.621 Type 2 diabetes mellitus with foot ulcer (principal); L97.516 Non-pressure chronic ulcer of other part of right foot with bone involvement without evidence of necrosis; L97.526 Non-pressure chronic ulcer of other part of left foot with bone involvement without evidence of necrosis; L84 Corns and callosities; R60.0 Localized edema; L53.9 Erythematous condition, unspecified; R23.3 Spontaneous ecchymoses; R21 Rash and other nonspecific skin eruption | CPT/HCPCS: 11042 ==

== ENCOUNTER → 2023-09-12 13:05 | Outpatient (CLI) | payer MEDICARE, OTHER, SELFPAY | PROVIDERS: Family Provider Family Medicine; PCP Family Medicine; Referring Provider Family Medicine; Visit Provider Surgery | DX: E11.621 Type 2 diabetes mellitus with foot ulcer (principal); E11.42 Type 2 diabetes mellitus with diabetic polyneuropathy; L97.512 Non-pressure chronic ulcer of other part of right foot with fat layer exposed; L97.522 Non-pressure chronic ulcer of other part of left foot with fat layer exposed; R60.0 Localized edema; L84 Corns and callosities; L53.9 Erythematous condition, unspecified | CPT/HCPCS: 11042 ==

== ENCOUNTER → 2023-09-19 11:04 | Outpatient (CLI) | payer MEDICARE, OTHER, SELFPAY | LOC: WC 11:05 | PROVIDERS: Family Provider Family Medicine; PCP Family Medicine; Referring Provider Family Medicine; Visit Provider Surgery | DX: E11.621 Type 2 diabetes mellitus with foot ulcer (principal); E11.42 Type 2 diabetes mellitus with diabetic polyneuropathy; L97.512 Non-pressure chronic ulcer of other part of right foot with fat layer exposed; L97.522 Non-pressure chronic ulcer of other part of left foot with fat layer exposed; L84 Corns and callosities; L53.9 Erythematous condition, unspecified; R60.0 Localized edema; Z79.899 Other long term (current) drug therapy | CPT/HCPCS: 11042; 99213 ==

== ENCOUNTER → 2023-09-26 14:03 | Outpatient (CLI) | payer MEDICARE, OTHER, SELFPAY | PROVIDERS: Family Provider Family Medicine; PCP Family Medicine; Referring Provider Family Medicine; Visit Provider Nurse Practitioner Family | DX: E11.621 Type 2 diabetes mellitus with foot ulcer (principal); L97.512 Non-pressure chronic ulcer of other part of right foot with fat layer exposed; L84 Corns and callosities; R60.0 Localized edema; Z79.899 Other long term (current) drug therapy | CPT/HCPCS: 11042; 99213 ==

== ENCOUNTER 2023-10-02 09:19 | Inpatient (IN) | payer MEDICARE, OTHER, SELFPAY ==
[2023-10-02] VITALS (23 sets, daily range): BP systolic 96–137; BP diastolic 55–98; PULSE 60–98; RESP 9–24; TEMP 36.5–36.8; O2SAT 85–100; BMI 28.7
--- NOTE | 2023-10-02 09:30 | ED_ITS ---
HPI - SOB/Dyspnea General Chief Complaint: Shortness of Breath/Dyspnea Stated Complaint: sob Time Seen by Provider: 10/02/23 09:28 Source: patient, RN notes reviewed and old records reviewed Limitations: no limitations History of Present Illness HPI Narrative: 77-year-old male with a history of CHF with defibrillator, diabetes on insulin, dyslipidemia who presents with complaint of increasing shortness of breath, orthopnea for the past 1-2 weeks. Patient notes has been particularly bad at nighttime. It has not quite as intense during the daytime. He also describes some new with exertion. Denies fevers or chills. No chest pain or pressure. Patient states he feels like he is to work a little harder to breathe. Denies any cough cold or congestion. Denies any vomiting but has had nausea. No abdominal back or flank pain. Has had some constipation but we will have a bowel movement every week or so followed by a lot of stool the initial day afterwards. Patient states he had quite a bit of swelling in his legs about a month ago had his Lasix increased at that time, had returned to normal level but was then increased again in the past week after having an ultrasound for his hernia which noted a what sounds like a pleural effusion. 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 They have been slowly healing he is completed 6 weeks his supposed to be reassessed by Infectious Disease with Dr. Matute at [facility] to decide if he should continue. Patient states no other new medication changes. Has had back surgery, shoulder surgery in May of 2023 as well as some dental surgeries and palate surgery in September of 2023. No known drug allergies. Former smoker, occasional alcohol, no recreational drugs. Related Data Home Medications Medication Instructions Recorded Confirmed CHOLECALCIFEROL (VITAMIN D3) 1 tab PO DAILY ##0 12/04/06 04/08/21 (Vitamin D3) MULTIVITAMIN (Multivitamin 1 spray PO DAILY ##0 12/04/06 04/08/21 -) VITAMIN C - 1,000 mg PO DAILY ##0 12/04/06 04/08/21 (VITAMIN C) allopurinol 300 mg tablet 300 mg PO DAILY 05/21/20 04/08/21 carvedilol 6.25 mg tablet 6.25 mg PO BID 05/21/20 04/08/21 empagliflozin 10 mg tablet 10 mg PO DAILY 05/21/20 04/08/21 (Jardiance) glimepiride 4 mg tablet 4 mg PO DAILY 05/21/20 04/08/21 insulin glargine 100 unit/mL 40 unit SUBCUT BID 05/21/20 04/08/21 subcutaneous cartridge spironolactone 25 mg tablet 25 mg PO DAILY 05/21/20 04/08/21 furosemide 20 mg tablet 20 mg PO DAILY 04/08/21 04/08/21 losartan 25 mg tablet 12.5 mg PO DAILY 04/08/21 04/08/21 metformin 500 mg tablet 500 mg PO BID 04/08/21 04/08/21 Allergies Allergy/AdvReac Type Severity Reaction Status Date / Time No Known Drug Allergies Allergy Verified 10/02/23 09:38 Review of Systems Review of Systems ROS Unobtainable: All systems reviewed & are unremarkable except as noted in HPI and below Patient History Social History household members: spouse Smoking Status: Former smoker alcohol intake: current Smoking Status: Former smoker alcohol intake frequency: a few times a week Substance Use Type: does not use Exam Narrative Exam Narrative: GENERAL: Alert and oriented x three, male in mild distress HEENT: Head normocephalic, atraumatic, EOMI, pupils reactive, face symmetric, moist mucous membranes NECK: Supple, full range of motion CARDIOVASCULAR: Regular rate and rhythm without murmurs, rubs or gallops. No JVD. Trace edema bilateral lower extremities. RESPIRATORY: Breath sounds equal bilaterally, no wheezes rales or rhonchi. No tachypnea, accessory muscle use or crackles noted. ABDOMEN: Soft, nontender. Normoactive bowel sounds all 4 quadrants. No guarding or rebound, rigidity, no mass : No CVA tenderness EXTREMITIES: Normal range of motion, no clubbing or edema. Neurovascularly intact. Patient has a PICC line in his right upper extremity. NEUROLOGICAL: Cranial nerves II through XII grossly intact. Moving all extremities SKIN: Warm, dry, no petechiae, no rashes or lesions. Initial Vital Signs Initial Vital Signs: Vital Signs Temperature 97.7 F 10/02/23 09:20 Pulse Rate 60 10/02/23 09:20 Respiratory Rate 16 10/02/23 09:20 Blood Pressure 137/71 10/02/23 09:20 Pulse Oximetry 99 10/02/23 09:20 Oxygen Delivery Method Room Air 10/02/23 09:20 Course Orders Ordered: ED Orders 10/02/23 09:32 Complete Blood Count AUTO DIFF Stat Comprehensive Metabolic Panel Stat Lipase Stat NT-proBNP (BNP-Adult 18+) Stat PTT Partial Thromboplastin Jaime Stat Procalcitonin Stat Prothrombin Time INR Stat Troponin & CK Cardiac Panel Stat 10/02/23 09:57 XR chest 1V Stat 10/02/23 10:33 Covid-19 + FLU A/B + RSV - PCR Stat Discontinued Medications Furosemide 60 mg/ Sodium (Chloride) 56 mls @ 112 mls/hr IV NOW ONE Stop: 10/02/23 11:25 Last Infusion: 10/02/23 12:56 Dose: Infused Documented By: Admin: 10/02/23 12:18 Dose: 112 mls/hr Documented By: VASILE Potassium Chloride (Potassium Chloride 20 Meq Tab) 40 meq PO NOW ONE Stop: 10/02/23 11:40 Last Admin: 10/02/23 12:17 Dose: 40 meq Documented By: VASILE Vital Signs Vital signs: Vital Signs - 8 hr 10/02/23 09:20 10/02/23 09:26 10/02/23 09:26 Temperature 97.7 F Pulse Rate 60 64 Respiratory Rate 16 Blood Pressure 137/71 137/71 Pulse Oximetry 99 Oxygen Delivery Method Room Air 10/02/23 09:30 10/02/23 09:31 10/02/23 09:31 Temperature Pulse Rate 85 85 Respiratory Rate 10 L 14 Blood Pressure 121/76 Pulse Oximetry 100 100 Oxygen Delivery Method 10/02/23 10:00 10/02/23 10:00 10/02/23 10:30 Temperature Pulse Rate 85 Respiratory Rate 15 Blood Pressure 112/55 L 114/68 Pulse Oximetry 99 Oxygen Delivery Method 10/02/23 10:30 10/02/23 12:12 Temperature Pulse Rate 82 98 H Respiratory Rate 11 L Blood Pressure Pulse Oximetry 100 85 L Oxygen Delivery Method MDM - SOB/Dyspnea Lab Data 10/02/23 09:32 10/02/23 09:32 Labs: Lab Results 10/02/23 10/02/23 Range/Units 09:32 10:33 WBC 11.0 (4.5-11.0) X10^3/uL RBC 4.74 (4.5-5.9) X10^6/uL Hgb 10.2 L (13.5-17.5) g/dL Hct 34.5 L (41-53) % MCV 72.7 L (80-100) fL MCH 21.4 L (26-34) PG MCHC 29.5 L (30-36) % RDW 19.9 H (11.6-14.8) % Plt Count 261 (150-400) X10^3/uL Neut % (Auto) 61.8 (50-75) % Lymph % (Auto) 25.5 (25-40) % Lucas % (Auto) 10.1 (3-14) % Eos % (Auto) 1.5 L (2-4) % Baso % (Auto) 1.1 (0-2) % Neut # (Auto) 6800 (2244-1295) /uL Lymph # (Auto) 2800 (8479-8222) /uL Lucas # (Auto) 1100 H (0-900) /uL Eos # (Auto) 200 (0-450) /uL Baso # (Auto) 100 (0-100) /uL RBC Morphology See below Hypochromasia 1+ H Anisocytosis 2+ H Microcytosis 1+ H Ovalocytes 1+ H PT 15.8 H (9.4-12.5) SECONDS INR 1.4 H (0.9-1.3) APTT 32 (25.1-36.5) SECONDS Sodium 137 (137-145) mmol/L Potassium 3.3 L (3.4-5.1) mmol/L Chloride 104 (98-107) mmol/L Carbon Dioxide 24 (22-32) mmol/L BUN 27 H (9-20) mg/dL Creatinine 1.44 H (0.66-1.25) mg/dL Estimated GFR 50 L (>60) mL/min BUN/Creatinine Ratio 18.8 (6-22) Glucose 115 H (80-110) mg/dL Calcium 9.1 (8.4-10.2) mg/dL Total Bilirubin 1.2 (0.2-1.3) mg/dL AST 26 (17-59) IU/L ALT 17 (<50) IU/L Alkaline Phosphatase 78 (38-126) U/L Total Creatine Kinase 31 L (55-170) U/L Troponin I 0.030 (0.01-0.034) ng/mL NT-Pro-B Natriuret Pep 6900 H (<450) pg/mL Total Protein 7.2 (6.3-8.2) g/dL Albumin 3.8 (3.5-5.0) g/dL Globulin 3.4 (1.7-4.1) g/dL Albumin/Globulin Ratio 1.1 (1.0-2.8) Lipase 118 (23-300) U/L Procalcitonin 0.103 (<0.5) ng/mL SARS-CoV-2 (PCR) Negative (Negative) Influenza A (RT-PCR) Flu a negative (NEGATIVE) Influenza B (RT-PCR) Flu b negative (NEGATIVE) RSV (PCR) Negative (Negative) Imaging Data Chest x-ray: Radiologist's Impression: [address] [address] XRay Report Signed Patient: Christo Rodriguez MR#: [id number] : 1945 Acct:[id number] Age/Sex: 77 / M Date of Service: 10/02/23 Loc: ED Accession Number: [id number] Procedure: XR chest 1V Ordering Provider: Yue Parra D.O. PROCEDURE: XR CHEST 1V INDICATIONS: sob, chf hx TECHNIQUE: One view of the chest was acquired. COMPARISON: [facility], , XR CHEST 1 VIEW, 08/24/2023, 16:29. FINDINGS: Surgical changes and devices: Stable cardiac pacer. Lungs and pleura: Lungs are clear. No pleural effusions or pneumothorax. Mediastinum: Mediastinal contours appear normal. Heart size is normal. Bones and chest wall: No suspicious bony lesions. Overlying soft tissues appear unremarkable. IMPRESSION: No acute cardiopulmonary abnormality is seen. Dictated by: Jackeline Loving MD, PhD on 10/02/2023 at 10:31 Approved by: Jackeline Loving MD, PhD on 10/02/2023 at 10:31 ECG Data Attestation: I personally reviewed and interpreted this ECG as follows: Prior ECG tracings: available for review Interpretation: Accelerated junctional rhythm rate of 90, QRS 84 QTC of 474. Patient has prior from 09/26/2013 which does not appear changed. [facility] Narrative Medical decision making narrative: 77-year-old male with complaint of increasing shortness of breath and orthopnea with history of CHF has been increasing his diuretics recently. Also has a current infection/wound infection in his toes on IV antibiotics. Labs show white count of 11 hemoglobin of 10 consistent with priors from June and March, platelets are 261. INR is 1.4 creatinine is 1.44 today, sodium is 137 potassium 3.3 chloride 104 CO2 is 24 with a glucose of 115 LFTs are negative CK is 31 with a troponin 0.03 and a BNP of 6900. Patient does not have priors for comparison does have a procalcitonin of 0.103 EKG shows junctional rhythm, rate of 90, QRS 84 appears to be occasional PVC use. Prior EKGs have been sinus rhythm. Chest x-ray shows no acute change COVID flu RSV is negative. Patient received Lasix 60 mg. Patient has had a recent adjustment of his diuretics. Patient ambulated drops to 85% on room air, got tachycardic little hypotensive immediately thereafter. He feels improved after resting O2 improved over time. Contacted Dr. Clark, on the office today assess to admit to Dr. Ireland. Spoke with Dr. Ireland who accepts for observation. Noted patient appears to have some atrial fibrillation on EKG versus frequent PACs or PVCs but not appreciated on old EKGs. He has been rate controlled, does not appear to be in CHF. He has not anticoagulated but does have a pacer/defibrillator appears to be in CHF. Becomes hypoxic with ambulation. Dr. Ireland saw patient in department. Discharge Plan Departure Patient Disposition: Admitted as Observation Clinical Impression: Acute exacerbation of chronic obstructive airways disease Admit Date/Time: 10/02/23 12:39 Admit Provider: Saad Ireland
--- NOTE | 2023-10-02 09:38 | EKG_ITS ---
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
--- NOTE | 2023-10-02 09:57 | DI.RAD.S_ITS ---
PROCEDURE: XR CHEST 1V INDICATIONS: sob, chf hx TECHNIQUE: One view of the chest was acquired. COMPARISON: [facility], CR, XR CHEST 1 VIEW, 08/24/2023, 16:29. FINDINGS: Surgical changes and devices: Stable cardiac pacer. Lungs and pleura: Lungs are clear. No pleural effusions or pneumothorax. Mediastinum: Mediastinal contours appear normal. Heart size is normal. Bones and chest wall: No suspicious bony lesions. Overlying soft tissues appear unremarkable. IMPRESSION: No acute cardiopulmonary abnormality is seen. Dictated by: Jackeline Loving MD, PhD on 10/02/2023 at 10:31 Approved by: Jackeline Loving MD, PhD on 10/02/2023 at 10:31
[2023-10-02 10:07] LABS: Basophils Absolute Auto 100 /uL (0-100); Basophils Percent Auto 1.1 % (0-2); Eosinophils Absolute Auto 200 /uL (0-450); Eosinophils Percent Auto 1.5 % (2-4); Hematocrit 34.5 % (41-53); Hemoglobin 10.2 g/dL (13.5-17.5); Lymphocytes Absolute Auto 2800 /uL (1100-4500); Lymphocytes Percent Auto 25.5 % (25-40); Mean Corpuscular HGB Conc 29.5 % (30-36); Mean Corpuscular Hemoglobin 21.4 PG (26-34); Mean Corpuscular Volume 72.7 fL (80-100); Monocytes Absolute Auto 1100 /uL (0-900); Monocytes Percent Auto 10.1 % (3-14); Neutrophils Absolute Auto 6800 /uL (1500-7000); Neutrophils Percent Auto 61.8 % (50-75); Platelet Count 261 X10^3/uL (150-400); Red Blood Cell Count 4.74 X10^6/uL (4.5-5.9); Red Cell Distribution Width 19.9 % (11.6-14.8)
[2023-10-02 10:08] LABS: Add Manual Diff / Slide Review SLIDE REVIEW; INR 1.4 (0.9-1.3); Prothrombin Time 15.8 SECONDS (9.4-12.5)
[2023-10-02 10:10] LABS: PTT Partial Thromboplastin Tim 32 SECONDS (25.1-36.5)
[2023-10-02 10:19] LABS: Alanine Aminotransferase 17 IU/L (<50); Albumin 3.8 g/dL (3.5-5.0); Albumin Globulin Ratio 1.1 (1.0-2.8); Alkaline Phosphatase 78 U/L (38-126); Aspartate Aminotransferase 26 IU/L (17-59); BUN Creatinine Ratio 18.8 (6-22); Bilirubin Total 1.2 mg/dL (0.2-1.3); Blood Urea Nitrogen 27 mg/dL (9-20); Calcium 9.1 mg/dL (8.4-10.2); Carbon Dioxide 24 mmol/L (22-32); Chloride 104 mmol/L (98-107); Creatine Kinase 31 U/L (55-170); Estimated Glomerular Filt Rate 50 mL/min (>60); Globulin 3.4 g/dL (1.7-4.1); Glucose 115 mg/dL (80-110); HEMOLYSIS < 15 (0-50); Lipase 118 U/L (23-300); Potassium 3.3 mmol/L (3.4-5.1); Sodium 137 mmol/L (137-145); Total Protein 7.2 g/dL (6.3-8.2)
[2023-10-02 10:31] LABS: NT-proBNP (BNP-Adult 18+) 6900 pg/mL (<450)
[2023-10-02 10:33] LABS: Anisocytosis 2+; Microcytosis 1+
[2023-10-02 10:34] LABS: Hypochromasia 1+
[2023-10-02 10:35] LABS: Procalcitonin 0.103 ng/mL (<0.5)
[2023-10-02 10:37] LABS: Ovalocytes 1+
--- NOTE | 2023-10-02 11:19 | PC.NURSE ---
Pt reports that he has been having some ongoing worsening SOB and dyspnea. C/O increased SOB while lying flat and with exertion. About a month ago, pt experienced increased swelling in his legs and lasix dose was increased at that time. Pt also being treating with abx for bone infections on feet bilaterally x6 weeks through [facility]. Pt had PICC line placed at [facility] for abx infusions. Pt has hx of diabetes & defib pacemaker.
[2023-10-02 11:37] LABS: Influenza A - CEPHEID Flu A NEGATIVE (NEGATIVE); Influenza B - CEPHEID Flu B NEGATIVE (NEGATIVE); Respiratory Syncytial Virus Negative (Negative)
[2023-10-02 11:39] LABS: COVID-19 CEPHEID 4-PLEX PCR Negative (Negative)
[2023-10-02] MEDS: POTASSIUM CHLORIDE 20 MEQ TAB 40 MEQ PO ×2 (12:17→17:19)
[2023-10-02] MEDS: FUROSEMIDE 60 MG in SODIUM CHLORIDE 0.9% 50 ML 112 MG IV (12:18)
--- NOTE | 2023-10-02 13:34 | DI.ECHO.S_ITS ---
+ + [place] [facility] : : [facility] : : [place] : : [place] : : [address] : : Phone: [phone] Echocardiogram Report + + :Name: LEYLA SAM Study Date: 10/02/2023 Height: 75 in : :[facility] ReadingLocation: Weight: 230 lb : : Gender: Male BSA: 2.3 m2 : :: 1945 Age: 77 yrs BP: 137/80 mmHg: :Reason For Study: CONGESTIVE HEART FAILURE : :Ordering Physician: JOANN, : :HANNA Performed By: Anant Olivia : :Referring: HANNA DAVID : + + Interpretation Summary The left ventricle is moderately dilated. The ejection fraction is estimated to be <10%. Diastolic parameters suggest a restrictive filling pattern consistent with probable significantly elevated filling pressures. The right ventricle is mildly dilated. Right ventricular systolic function is moderately reduced. The right ventricular systolic pressure is estimated to be at least 66.4 mmHg based on an estimated right atrial pressure of 15 mm Hg. The left atrium is severely dilated. There is moderate to severe mitral regurgitation. There is moderate tricuspid regurgitation. The ascending aorta is mildly enlarged. Procedure: A two-dimensional transthoracic echocardiogram with color flow and Doppler was performed. A contrast injection of Definity was performed to improve assessment of LV function. The study quality was technically adequate. The patient had an echocardiogram, but there is no comparison study available. The patient was in atrial fibrillation with heart rates between 80-135 bpm during the exam. Left Ventricle: The left ventricle is moderately dilated. There is normal left ventricular wall thickness. The ejection fraction is estimated to be <10%. There is severe global hypokinesis of the left ventricle. Diastolic parameters suggest a restrictive filling pattern consistent with probable significantly elevated filling pressures. Right Ventricle: The right ventricle is mildly dilated. Right ventricular systolic function is moderately reduced. Atria: The left atrium is severely dilated. The right atrium is moderately dilated. The interatrial septum grossly appears intact with no obvious evidence for an atrial septal defect. Mitral Valve: The mitral valve is normal. There is no mitral valve stenosis. There is moderate to severe mitral regurgitation. Aortic Valve: The aortic valve is trileaflet. There is no aortic valve stenosis. No aortic regurgitation is present. Tricuspid Valve: The tricuspid valve is normal. There is no tricuspid stenosis. There is moderate tricuspid regurgitation. The right ventricular systolic pressure is estimated to be at least 66.4 mmHg based on an estimated right atrial pressure of 15 mm Hg. Pulmonic Valve: The pulmonic valve is not well visualized. There is no pulmonic valvular stenosis. There is trace pulmonic regurgitation. Great Vessels: The aortic root is normal size. The ascending aorta is mildly enlarged. The IVC is dilated (diameter is greater than 2.1 cm) and it collapses less than 50% with a sniff. This suggests a high right atrial pressure of 15 mm Hg. Pericardium/ Pleura There is no pericardial effusion. There is no pleural effusion. MMode/2D Measurements & Calculations LVIDd: 6.4 cm LVOT diam: 2.2 cm LVIDs: 6.3 cm Ao root diam: 3.5 cm FS: 1.8 % asc Aorta Diam: 3.7 cm IVSd: 0.89 cm LVPWd: 0.83 cm LV oswald. diameter/BSA (cm/m^2): 2.8 LV sys. diameter/BSA (cm/m^2): 2.7 LA A2 area: 36.1 cm2 RA long axis: 6.2 cm LA A4 area: 29.4 cm2 RA area: 27.5 cm2 LA length (vol): 6.9 cm RA vol: 103.5 ml LA vol: 130.2 ml RA : 44.5 ml/m2 LA vol index: 55.9 ml/m2 IVC diam: 2.7 cm RVD1 (basal): 4.1 cm RVD2 (mid): 3.7 cm TAPSE: 1.0 cm Doppler Measurements & Calculations Ao V2 max: 114.1 cm/sec LVOT Max Stefano: 84.2 cm/sec Ao V2 mean: 82.7 cm/sec LV V1 max P.8 mmHg Ao max P.2 mmHg LV V1 VTI: 15.0 cm Ao mean P.0 mmHg ROULA(I,D): 2.9 cm2 Ao V2 VTI: 19.3 cm ROULA(V,D): 2.8 cm2 sev ratio: 0.78 ROULA indexed to BSA (cm^2/m^2): 1.3 MV E max stefano: 85.4 cm/sec TR max stefano: 358.6 cm/sec MV A max setfano: 22.0 cm/sec TR max P.4 mmHg MV E/A: 3.9 PA V2 max: 72.8 cm/sec Med Peak E' Stefano: 4.1 cm/sec PA V2 mean: 44.0 cm/sec E/E' med: 20.9 PA mean P.96 mmHg Lat Peak E' Stefano: 5.5 cm/sec PA pr(Accel): 47.6 mmHg E/E' lat: 15.4 E/e' average: 18.1 MV dec time: 0.19 sec MR ERO: 0.35 cm2 MR PISA: 4.7 cm2 SV(LVOT): 56.6 ml MR flow rate: 183.1 cm3/sec MR PISA radius: 0.86 cm Reading Physician:05:40 PM
[2023-10-02] MEDS: CEFEPIME 2 GM in SODIUM CHLORIDE 0.9% 100 ML IV ×2 (15:05→21:16)
--- NOTE | 2023-10-02 18:38 | PM.HP.1 ---
History of Present Illness History of Present Illness Date Patient Seen: 10/02/23 Time Patient Seen: 18:38 Date of Onset of Symptoms: 08/29/23 Chief complaint: sob Narrative: Patient is a 77-year-old male well known to our clinic who presents with increasing shortness of breath. This has been probably going on for 6 weeks to 2 months. But is worse over the last 2 weeks. Started out with orthopnea he does have a bed that sits up but he still felt like an hour and a half every night he was having issues this has been slowly progressing to the point where he is becoming increasing shortness of breath to the point where he really could not do much today. He has had no chest pain no palpitations no nausea vomiting change in his bowel movements blood in his stool urinary complaints. He has never had any other significant issue. He has a history congestive heart failure unable to see last echo at this time no other changes. No fevers no chills. 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 But otherwise has been doing pretty well. Has had intermittent nausea for quite some time but feeling well otherwise. [facility] Social History household members: spouse Smoking Status: Former smoker alcohol intake: current Meds Home Medications and Allergies Home Medications Medication Instructions Recorded Confirmed Type CHOLECALCIFEROL (VITAMIN D3) 1 tab PO DAILY ##0 12/04/06 10/02/23 History (Vitamin D3) MULTIVITAMIN (Multivitamin 1 spray PO DAILY ##0 12/04/06 10/02/23 History -) allopurinol 300 mg tablet 300 mg PO DAILY 05/21/20 10/02/23 History carvedilol 6.25 mg tablet 6.25 mg PO BID 05/21/20 10/02/23 History empagliflozin 10 mg tablet 10 mg PO DAILY 05/21/20 10/02/23 History (Jardiance) glimepiride 4 mg tablet 4 mg PO DAILY 05/21/20 10/02/23 History furosemide 20 mg tablet 20 mg PO DAILY 04/08/21 10/02/23 History losartan 25 mg tablet 12.5 mg PO DAILY 04/08/21 10/02/23 History metformin 500 mg tablet 500 mg PO DAILY 04/08/21 10/02/23 History aspirin 81 mg tablet,delayed 81 mg PO BEDTIME 10/02/23 10/02/23 History release atorvastatin 40 mg tablet 20 mg PO DAILY cholesterol 10/02/23 10/02/23 History cholecalciferol (vitamin D3) 125 125 mcg PO DAILY 10/02/23 10/02/23 History mcg (5,000 unit) tablet (Vitamin D3) coenzyme Q10 100 mg capsule 200 mg PO DAILY 10/02/23 10/02/23 History (CoQ-10) folic acid 400 mcg tablet 0.4 mg PO DAILY 10/02/23 10/02/23 History insulin glargine 100 unit/mL (3 20 unit SUBCUT BID 10/02/23 10/02/23 History mL) subcutaneous pen (Lantus Solostar U-100 Insulin) magnesium glycinate 100 mg tablet 400 mg PO BEDTIME 10/02/23 10/02/23 History montelukast 10 mg tablet 10 mg PO BEDTIME 10/02/23 10/02/23 History (Singulair) omeprazole 20 mg tablet,delayed 20 mg PO BID 10/02/23 10/02/23 History release vitamin B complex 1 tab PO BEDTIME 10/02/23 10/02/23 History Allergies Allergy/AdvReac Type Severity Reaction Status Date / Time No Known Drug Allergies Allergy Verified 10/02/23 09:38 Review of Systems Review of Systems Narrative: Negative as above Exam Vital Signs (past 8 hours): - 10/02/23 11:00 10/02/23 11:00 10/02/23 11:30 Pulse Rate 83 84 Respiratory Rate 12 Blood Pressure 121/58 L Pulse Oximetry 97 96 10/02/23 11:30 10/02/23 12:07 10/02/23 12:08 Pulse Rate 86 Respiratory Rate 24 Blood Pressure 119/56 L 99/59 L Pulse Oximetry 10/02/23 12:08 10/02/23 12:12 10/02/23 12:25 Pulse Rate 83 98 H 84 Respiratory Rate 16 14 Blood Pressure Pulse Oximetry 85 L 100 10/02/23 12:25 10/02/23 12:30 10/02/23 12:30 Pulse Rate 85 Respiratory Rate 19 Blood Pressure 107/64 96/55 L Pulse Oximetry 100 10/02/23 12:55 10/02/23 12:55 10/02/23 13:00 Pulse Rate 85 86 Respiratory Rate 18 18 Blood Pressure 111/61 Pulse Oximetry 100 100 10/02/23 13:01 10/02/23 13:01 10/02/23 13:30 Pulse Rate 93 H 88 Respiratory Rate 20 15 Blood Pressure 135/98 H Pulse Oximetry 99 99 10/02/23 13:31 10/02/23 13:31 10/02/23 14:00 Pulse Rate 88 88 Respiratory Rate 23 9 L Blood Pressure 124/84 Pulse Oximetry 99 100 10/02/23 14:00 Pulse Rate Respiratory Rate Blood Pressure 137/80 Pulse Oximetry Oxygen Delivery Method Room Air Narrative Exam Narrative: Alert smiling elderly male in no acute distress HEENT exam is unremarkable neck supple without adenopathy JVD or bruits. Lungs are clear heart regular rate and rhythm without murmurs clicks rubs or gallops. Abdomen is soft positive bowel sounds nontender. 2+ edema shins bilateral feet in dressings with boots neurologic exam is normal Objective Labs 10/02/23 09:32 10/02/23 09:32 Labs: Laboratory Results - last 24 hr 10/02/23 10/02/23 09:32 10:33 WBC 11.0 RBC 4.74 Hgb 10.2 L Hct 34.5 L MCV 72.7 L MCH 21.4 L MCHC 29.5 L RDW 19.9 H Plt Count 261 Neut % (Auto) 61.8 Lymph % (Auto) 25.5 [place] % (Auto) 10.1 Eos % (Auto) 1.5 L Baso % (Auto) 1.1 Neut # (Auto) 6800 Lymph # (Auto) 2800 [place] # (Auto) 1100 H Eos # (Auto) 200 Baso # (Auto) 100 RBC Morphology See below Hypochromasia 1+ H Anisocytosis 2+ H Microcytosis 1+ H Ovalocytes 1+ H PT 15.8 H INR 1.4 H APTT 32 Sodium 137 Potassium 3.3 L Chloride 104 Carbon Dioxide 24 BUN 27 H Creatinine 1.44 H Estimated GFR 50 L BUN/Creatinine Ratio 18.8 Glucose 115 H Calcium 9.1 Total Bilirubin 1.2 AST 26 ALT 17 Alkaline Phosphatase 78 Total Creatine Kinase 31 L Troponin I 0.030 NT-Pro-B Natriuret Pep 6900 H Total Protein 7.2 Albumin 3.8 Globulin 3.4 Albumin/Globulin Ratio 1.1 Lipase 118 Procalcitonin 0.103 SARS-CoV-2 (PCR) Negative Influenza A (RT-PCR) Flu a negative Influenza B (RT-PCR) Flu b negative RSV (PCR) Negative Assessment & Plan Assessment & Plan narrative: Congestive heart failure. Pretty severe with 10% EF. Etiology is unclear. Will track enzymes but does not appear to be ischemic. Could this be related to IV antibiotics I guess as possible or infection there was no evidence of that. Does have pretty severe mitral regurgitation. Will need cardiology consult. Will add tele continued diuresis and consider transfer tomorrow. After consult with solar electric/photovoltaic installer. I do not think that will change anything tonight. Unclear how long this has been going on. Will continue usual medicines. Bilateral toe infections. Continue antibiotics cefepime IV. And will continue to follow. Type 2 diabetes seems to be stable. Will restart usual meds except for glipizide and add short term coverage and follow. Hypokalemia. Will replace orally recheck a.m.. DVT prophylaxis Lovenox GI prophylaxis not needed Code status will discuss with the patient. Disposition. Patient is severely ill at this point with new onset severe congestive heart failure will be here a least a few days and depend on possible transfer to further workup. Depending on discussion with solar electric/photovoltaic installer Time-Based Coding :: [TOTAL MINUTES] spent with patient and on the chart (including review of chart, obtaining history, exam, reviewing outside data, placing orders, documenting exam and treatment plan, and counseling patient) on [DATE].
[2023-10-02] MEDS: FUROSEMIDE 40 MG/4 ML VIAL IV (19:02)
[2023-10-02 19:29] LABS: Creatine Kinase 40 U/L (55-170)
[2023-10-02 19:39] LABS: NT-proBNP (BNP-Adult 18+) 7330 pg/mL (<450)
[2023-10-02 19:42] LABS: Troponin I 0.027 ng/mL (0.01-0.034)
[2023-10-02] MEDS: INSULIN GLARGINE 100 UNIT/ML 3ML PEN 40 UNIT SUBCUT (21:10)
[2023-10-02] MEDS: INSULIN LISPRO 100 UNIT/ML 3ML VIAL SUBCUT (21:11)
[2023-10-02] MEDS: carvediloL 3.125 MG TABLET 6.25 MG PO (21:16)
[2023-10-02] MEDS: SODIUM CHLORIDE 0.9% FLUSH 10 ML IV (21:16)
[2023-10-03] VITALS (10 sets, daily range): BP systolic 94–127; BP diastolic 57–81; PULSE 70–86; RESP 16–20; TEMP 36.1–36.6; O2SAT 97–100
--- NOTE | 2023-10-03 00:36 | PC.NURSE ---
Addendum entered by Celine Diallo R.N. 10/03/23 06:13: Slept well after taking pain med. This morning is groggy and having increased difficulty with balance so medicated with Tylenol for 6/10 scapula/neck pain. Addendum entered by Celine Diallo R.N. 10/03/23 01:46: Complaining of increased SOB although O2 sat within normal limits so placed on oxygen for patient comfort and RT contacted and assessed patient. Breath sounds diminished but no wheezes or crackles auscultated. Is on oxygen at 4L/min with sat of 100%. Complains also of increased chronic back, neck and left shoulder pain with severity of 5/10. Dr. Navas contacted for pain medication stronger than tylenol. Reported lab results and continued telemetry arrhythmia of couplets, bigemeny and PVC's. See new orders. Original Note: Patient is alert and oriented. Breath sounds diminished with left moreso than right. Reports he feels SOB at rest and is exacerbated by any activity but RA sat is 99%. Noted to have difficulty clearing secretions and spitting up small amounts white phlegm; reports this is chronic. Also reports he has some difficulty with swallowing and has had choking episodes at home; has hx of cervical fusion per his report. HRR at time of assessment but telemetry reading was afib CVR w/rare PVC's; 0000 reading was SR with frequent PVC's. Is aware his echo is showing < 10% EF and is concerned that antibiotics may have caused that so they are declining 0600 antibiotics. Denied nausea. BT hypoactive but is passing flatus; last BM was 09/28. Is voiding per urinal and urine is clear, light yellow. Had Lasix at 1902 and scheduled to have another dose at [address] Navas contacted to confirm next dose and he reviewed vital signs and made aware that Coreg was given; order received to hold 2100 dose and resume in the a.m. Is able to move himself in bed. Does have history of pressure ulcer to sacrum/left buttock and area is discolored but nothing is open; given a waffle cushion which he states helps. Is getting out of bed with walker and 1 assist/SBA because he has weakness and unsteadiness; wears bilateral ortho boots when getting up. Currently is assisting him but instructed to get staff assist if increased weakness, dizziness or lightheadedness; verbalized understanding. Dressings to toes of bilateral feet are CDI. Has 2+ edema in bilateral LE and also appears to have some edema in torso. States pain is 1-2/10 in back, neck and left shoulder but declines offer of pain medication. Fall risk score is high. At 0049 patient had a 13 second run of a wide complex arrhythmia. His BP at the time was 106/63 with HR of 83. Denied any symptoms of chest pain and had been having difficulty getting into comfortable position in the bed prior to this occurrence. Dr. Navas was informed by BETTY Snyder RN and orders received for stat labs. Instructed to call when getting out of bed so that staff is present due to heart arrhythmia. Also instructed to not take po food/fluids tonight and will check with MD in a.m. re: ST eval due to dysphagia.
[2023-10-03 01:18] LABS: BUN Creatinine Ratio 22.5 (6-22); Blood Urea Nitrogen 31 mg/dL (9-20); Calcium 8.9 mg/dL (8.4-10.2); Carbon Dioxide 24 mmol/L (22-32); Chloride 105 mmol/L (98-107); Creatine Kinase 35 U/L (55-170); Estimated Glomerular Filt Rate 53 mL/min (>60); Glucose 136 mg/dL (80-110); HEMOLYSIS 31 (0-50); Magnesium 2.1 mg/dL (1.6-2.3); Sodium 137 mmol/L (137-145)
[2023-10-03 01:30] LABS: Troponin I 0.037 ng/mL (0.01-0.034)
[2023-10-03] MEDS: POTASSIUM CHLORIDE 20 MEQ TAB 40 MEQ PO ×3 (01:51→17:23)
[2023-10-03] MEDS: OXYCODONE IR 5 MG TABLET PO (01:51)
[2023-10-03] MEDS: ACETAMINOPHEN 325 MG TABLET 650 MG PO (06:10)
[2023-10-03 07:19] LABS: Alanine Aminotransferase 16 IU/L (<50); Albumin 3.6 g/dL (3.5-5.0); Albumin Globulin Ratio 1.1 (1.0-2.8); Alkaline Phosphatase 77 U/L (38-126); Aspartate Aminotransferase 34 IU/L (17-59); BUN Creatinine Ratio 19.9 (6-22); Bilirubin Total 1.1 mg/dL (0.2-1.3); Blood Urea Nitrogen 29 mg/dL (9-20); Carbon Dioxide 25 mmol/L (22-32); Chloride 105 mmol/L (98-107); Creatine Kinase 30 U/L (55-170); Estimated Glomerular Filt Rate 49 mL/min (>60); Globulin 3.2 g/dL (1.7-4.1); Glucose 105 mg/dL (80-110); HEMOLYSIS < 15 (0-50); Sodium 137 mmol/L (137-145); Total Protein 6.8 g/dL (6.3-8.2)
[2023-10-03 07:28] LABS: NT-proBNP (BNP-Adult 18+) 8820 pg/mL (<450)
[2023-10-03 07:31] LABS: Troponin I 0.035 ng/mL (0.01-0.034)
[2023-10-03] MEDS: ONDANSETRON 4 MG/2 ML INJ IV (09:35)
[2023-10-03] MEDS: FUROSEMIDE 40 MG/4 ML VIAL IV ×2 (09:36→15:52)
[2023-10-03] MEDS: carvediloL 3.125 MG TABLET 6.25 MG PO ×2 (09:36→21:46)
[2023-10-03] MEDS: LOSARTAN 25 MG TABLET 12.5 MG PO (09:36)
[2023-10-03] MEDS: METFORMIN HCL 500 MG TABLET PO (09:37)
[2023-10-03] MEDS: ENOXAPARIN 40 MG/0.4 ML SYRINGE SUBCUT (09:38)
[2023-10-03] MEDS: INSULIN GLARGINE 100 UNIT/ML 3ML PEN 40 UNIT SUBCUT (09:39)
[2023-10-03] MEDS: SODIUM CHLORIDE 0.9% FLUSH 10 ML IV ×2 (09:39→21:49)
--- NOTE | 2023-10-03 10:03 | P.PN_ITS ---
Subjective Subjective Date Patient Seen: 10/03/23 Time Patient Seen: 09:00 Interval history: Pt is comfortable sitting up on side of bed but gets SOB if he tries to lay back. breathing ok sitting up with a few liters of NC. Not much appetite today could only get down a couple of bites. Echo showing <10% EF reviewed, cardiology contacted, Dr. Pleitez at [facility] agrees would like to see him over there, pending bed availability. Exam Vital Signs (past 8 hours): - 10/03/23 04:00 Temperature 97.8 F Pulse Rate 86 Respiratory Rate 20 Blood Pressure 127/73 Pulse Oximetry 100 Oxygen Flow Rate 0 Fraction of Inspired Oxygen 36 SaO2/FiO2 Ratio 277 Oxygen Delivery Method Nasal Cannula Oxygen Flow Rate 0 Narrative Exam Narrative: sitting upright at edge of bed Resp Other: moving air ok bilaterally Cardio Other: weak pulse, soft heart sounds GI Other: soft nontender active bowel sounds Neuro Other: alert awake oriented no focal deficits Extrem Other: LLE 3rd digit and RLE 1st digit under dressings for osteomyelitis. 2/3+ pitting edema bilaterally Objective Labs 10/02/23 09:32 10/03/23 06:40 Labs: Laboratory Results - last 24 hr 10/02/23 10/02/23 10/02/23 09:32 10:33 19:10 WBC 11.0 RBC 4.74 Hgb 10.2 L Hct 34.5 L MCV 72.7 L MCH 21.4 L MCHC 29.5 L RDW 19.9 H Plt Count 261 Neut % (Auto) 61.8 Lymph % (Auto) 25.5 [place] % (Auto) 10.1 Eos % (Auto) 1.5 L Baso % (Auto) 1.1 Neut # (Auto) 6800 Lymph # (Auto) 2800 [place] # (Auto) 1100 H Eos # (Auto) 200 Baso # (Auto) 100 RBC Morphology See below Hypochromasia 1+ H Anisocytosis 2+ H Microcytosis 1+ H Ovalocytes 1+ H PT 15.8 H INR 1.4 H APTT 32 Sodium 137 Potassium 3.3 L Chloride 104 Carbon Dioxide 24 BUN 27 H Creatinine 1.44 H Estimated GFR 50 L BUN/Creatinine Ratio 18.8 Glucose 115 H Calcium 9.1 Magnesium Total Bilirubin 1.2 AST 26 ALT 17 Alkaline Phosphatase 78 Total Creatine Kinase 31 L 40 L Troponin I 0.030 0.027 NT-Pro-B Natriuret Pep 6900 H 7330 H Total Protein 7.2 Albumin 3.8 Globulin 3.4 Albumin/Globulin Ratio 1.1 Lipase 118 Procalcitonin 0.103 SARS-CoV-2 (PCR) Negative Influenza A (RT-PCR) Flu a negative Influenza B (RT-PCR) Flu b negative RSV (PCR) Negative 10/03/23 10/03/23 00:55 06:40 WBC RBC Hgb Hct MCV MCH MCHC RDW Plt Count Neut % (Auto) Lymph % (Auto) [place] % (Auto) Eos % (Auto) Baso % (Auto) Neut # (Auto) Lymph # (Auto) [place] # (Auto) Eos # (Auto) Baso # (Auto) RBC Morphology Hypochromasia Anisocytosis Microcytosis Ovalocytes PT INR APTT Sodium 137 137 Potassium 4.0 4.0 Chloride 105 105 Carbon Dioxide 24 25 BUN 31 H 29 H Creatinine 1.38 H 1.46 H Estimated GFR 53 L 49 L BUN/Creatinine Ratio 22.5 H 19.9 Glucose 136 H 105 Calcium 8.9 9.0 Magnesium 2.1 Total Bilirubin 1.1 AST 34 ALT 16 Alkaline Phosphatase 77 Total Creatine Kinase 35 L 30 L Troponin I 0.037 H 0.035 H NT-Pro-B Natriuret Pep 8820 H Total Protein 6.8 Albumin 3.6 Globulin 3.2 Albumin/Globulin Ratio 1.1 Lipase Procalcitonin SARS-CoV-2 (PCR) Influenza A (RT-PCR) Influenza B (RT-PCR) RSV (PCR) PFSH Social History household members: spouse Smoking Status: Former smoker alcohol intake: current Assessment & Plan Assessment & Plan narrative: #acute on chronic systolic and diastolic congestive heart failure #hx of coronary stents EF of <10% is new and could certainly explain presentation, cardiology technical services consultant Dr. Pleitez and I Agree would benefit from higher level of care, attempts to arrange transfer are ongoing. #osteomyelitis of L hallux and L 3rd toe S/p 5 weeks tx with IV cefepime Over that time they have both improved dramatically however they feel this has coincided with the time of Don's acute decline Hold cefepime for now Consult wound care Will consider shift to oral therapy They see ID outpatient so we will touch base with them also #Insulin-dependent Type 2 diabetes with hyperglycemia continue home regimen with SSI and fingersticks #hx of sacral pressure ulcer this has been improving but as he is mostly sitting let's make sure he has a pressure mattress PCP: Amber Code: full Diet: heart healthy/diabetic MDM: Time-Based Coding :: [TOTAL MINUTES] spent with patient and on the chart (including review of chart, obtaining history, exam, reviewing outside data, placing orders, documenting exam and treatment plan, and counseling patient) on [DATE].
--- NOTE | 2023-10-03 12:07 | PC.NURSE ---
Transfer efforts initiated for cardiology specialty at [facility].
--- NOTE | 2023-10-03 12:39 | P.DS_ITS ---
History of Present Illness History of Present Illness Date Patient Seen: 10/03/23 Time Patient Seen: 10:00 Chief complaint: sob Narrative: chief complaint: short of breath on exertion Feeling ok this morning still very weak no appetite. Reviewed echo report showing new EF <10% with global hypokinesis, textile conservator showing some runs of vtach. I have been in touch with physicians at [place] who have accepted transfer if arrangeable. Events are in train to arrange transportation when a bed is confirmed. Discharge Providers Provider Date of admission: 10/02/23 12:39 Discharge Date: 10/04/23 Primary care physician: Javier Clark MD Consults: 10/03/23 10:18 Consult to Inpatient Wound Care Nurse Routine Comment: Reason for consultation: osteo of RLE 1st digit, LLE 3rd digit, sees wound care as outpatient Discharge provider: Javier Clark MD Summary Hospital Course Discharge Diagnosis: #acute on chronic systolic and diastolic congestive heart failure [facility] stage 3 #hx of coronary stents #intermittent vtach runs #osteomyelitis of L hallux and L 3rd toe #Insulin-dependent Type 2 diabetes with hyperglycemia #hx of sacral pressure ulcer Hospital Course: Vincent tomlinson with hx of cardiac stents, hypertension, insulin dependent diabetes presented to ED with progressive weakness and fatigue over the last month, feeling acutely short of breath with any exertion. He has a recent diagnosis of osteomyelitis of RLE 1st digit, LLE 3rd digit for which he has been receiving IV cefepime infusions. The toes have been improving but he has been worsening. Initial workup was unrevealing so he was admitted for further tests and monitoring. He is comfortable sitting up on side of bed at rest on 2L via NC but gets acutely SOB with any exertion or recline. Decreased appetite noted. Inpatient echo revealed a new acute decline in systolic function to <10% with global hypokinesis. Arrangements made to transfer to higher level of care with cardiac support available as he may benefit from a cath. He has completed 5 weeks of IV cefepime and does not want to continue it as he suspects it has been contributing to his heart issues and would like to discuss with an ID specialist about his options for therapy. Status at Discharge Cognitive/behavioral status at discharge: at baseline, oriented Functional status at discharge: wheelchair bound Overall status at discharge: patient is not back to baseline Time Spent with Patient Time spent: Greater than 30 minutes Exam Vital Signs (past 8 hours): - 10/03/23 07:30 10/03/23 07:30 10/03/23 08:00 Temperature 97.6 F Pulse Rate 83 Respiratory Rate 18 Blood Pressure 103/81 Pulse Oximetry 100 99 Oxygen Delivery Method Nasal Cannula Room Air Oxygen Flow Rate 4 Fraction of Inspired Oxygen 36 SaO2/FiO2 Ratio 277 Oxygen Delivery Method Room Air Oxygen Flow Rate 4 Narrative Exam Narrative: sitting upright in bed HENMT Other: normocephalic atraumatic Resp Other: clear to auscultation bilaterally Cardio Other: regular rate, weak thready pulse, pale, alert and perfused sitting upright GI Other: soft nontender nondistended active bowel sounds Neuro Other: alert awake and oriented x3 Extrem Other: moving all limbs equally, no pedal edema Objective Labs 10/04/23 06:28 10/04/23 06:28 Labs: Laboratory Results - last 24 hr 10/02/23 10/03/23 10/03/23 19:10 00:55 06:40 Sodium 137 137 Potassium 4.0 4.0 Chloride 105 105 Carbon Dioxide 24 25 BUN 31 H 29 H Creatinine 1.38 H 1.46 H Estimated GFR 53 L 49 L BUN/Creatinine Ratio 22.5 H 19.9 Glucose 136 H 105 Calcium 8.9 9.0 Magnesium 2.1 Total Bilirubin 1.1 AST 34 ALT 16 Alkaline Phosphatase 77 Total Creatine Kinase 40 L 35 L 30 L Troponin I 0.027 0.037 H 0.035 H NT-Pro-B Natriuret Pep 7330 H 8820 H Total Protein 6.8 Albumin 3.6 Globulin 3.2 Albumin/Globulin Ratio 1.1 PFSH Social History household members: spouse Smoking Status: Former smoker alcohol intake: current Discharge Assessment & Plan Assessment and Plan Assessment: #acute on chronic systolic and diastolic congestive heart failure [facility] stage 3 #hx of coronary stents EF of <10% with global hypokinesis is new, acute decline, and could certainly explain presentation with insidious onset over last month or so Since admission has been diuresing with lasix iv 40 TID well Transferring to higher level of care with cardiology and ID available. #osteomyelitis of L hallux and L 3rd toe S/p 5 weeks tx with IV cefepime Over that time they have both improved dramatically however this has coincided with the timing of Don's acute decline Holding cefepime for now he does seem a little bit better they do not want to continue it, wound care consulted see note These wounds have improved significantly, consider shift to different med to complete IV course or non- fluouroquinolone oral therapy d/t tendon concerns. Sees Dr. Rivas ID outpt for this, continue pain control. #hx of primary hypertension takes losartan and coreg as outpatient, holding that inpatient, his pressures have been ok this admission #Insulin-dependent Type 2 diabetes with hyperglycemia Lantus 20 BID with jardiance and glimeperide and metformin at home, continue regimen with SSI and fingersticks #GERD takes omeprazole prn #hx of sacral pressure ulcer pressure mattress ordered This has been treated pretty well it is back to a stage 1 but he is doing a lot of sitting lately as that is the only comfortable position so good padding is trotter. Dispo: to [facility] [place] for higher level of care PCP: Amber Code: full Diet: heart healthy/diabetic MDM: Clotilde Discharge Plan Discharge Plan Patient Disposition: [facility] Other facility: [facility], [place] Under care of provider: Dr. Freedman cardiology and Dr. De La Cruz hospitalist Provider Discharge Comment: for access to landscape laborer as available Diet/Activity/Treatments Diet: Carb-consistent/Diabetic Skin/Wound/Dressing Care Other wound treatment: wound care for LLE 3rd digit, RLE 1st digit osteomyelitis Discharge Data Primary Care Provider: Javier Clark
--- NOTE | 2023-10-03 13:55 | CM.DANOTE ---
Addendum entered by JULIET Steel 10/04/23 09:14: Correction: Addendum entered below was placed in error. Patient awaiting transfer to [facility] pending bed availability. Addendum entered by JULIET Steel 10/03/23 15:42: ADD: [facility] accepts for admission Sunday. PASRR completed. Original Note: Initial DCP Assessment Note Pt is a 77 yo male, resident of [place], admitted for SOB, EF of 10. Patient is being transferred to [facility] for Cardiology PCP: Javier Clark Payer: YUE/Harry Reviewed chart, met w/patient and spouse, introduced self and role. Patient reports living independently with spouse, multiple family members live on their family property which is located on [place] near the [facility]. Patient reports poor activity tolerance on the days he feels dizzy, weak and short of breath. Spouse and multiple supportive family members are available to assist patient as needed. Patient waiting to transfer to [facility]; no needs from this CM team at this time. JULIET Santiago Discharge Planning/Care Management Advanced directive, confirm from FAMILY Start: 10/02/23 15:28 Freq: Q24H Status: Active Protocol: Document 10/02/23 15:28 LW (Rec: 10/02/23 15:56 LW [id number]) Co-signed By Na Schmitt RN Advance Directive, confirm on record Time 15:55 Person contacted Copy received No CM Discharge Assessment Start: 10/03/23 13:54 Freq: Status: Active Protocol: Document 10/03/23 13:54 BERENICE (Rec: 10/03/23 13:55 BERENICE [id number]) Discharge Planning Assessment Assigned Capacity Management Specialist JULIET Bardales DPOA/Assigned Designee Name Clotilde Rodriguez, spouse Contact Information [phone], Advance Directives? Yes Advance Directives on File No History Provided By Patient,Significant Other Prior Living Arrangements House Household Members spouse Type of transporation used prior to Drives own vehicle admit Independent with ADL's Yes Is patient alert and oriented? Yes Needs Assistance With Home Chores / Shopping Barriers to Discharge No Comment Transfer for Cardiology Discharge Plan Transfer to Higher Level of Care Transportation Arrangement BLS Referrals Initiated None needed
[2023-10-03 14:46] LABS: Creatine Kinase 37 U/L (55-170)
[2023-10-03 14:58] LABS: Troponin I 0.033 ng/mL (0.01-0.034)
[2023-10-04] VITALS (9 sets, daily range): BP systolic 102–113; BP diastolic 54–70; PULSE 70–80; RESP 18–19; TEMP 36.1–36.9; O2SAT 98–100
[2023-10-04 06:43] LABS: Add Manual Diff / Slide Review NO; Basophils Absolute Auto 100 /uL (0-100); Basophils Percent Auto 1.1 % (0-2); Eosinophils Absolute Auto 200 /uL (0-450); Eosinophils Percent Auto 1.8 % (2-4); Hematocrit 33.8 % (41-53); Hemoglobin 10.2 g/dL (13.5-17.5); Lymphocytes Absolute Auto 2900 /uL (1100-4500); Lymphocytes Percent Auto 29.5 % (25-40); Mean Corpuscular HGB Conc 30.3 % (30-36); Mean Corpuscular Hemoglobin 21.6 PG (26-34); Mean Corpuscular Volume 71.3 fL (80-100); Monocytes Absolute Auto 1000 /uL (0-900); Monocytes Percent Auto 10.1 % (3-14); Neutrophils Absolute Auto 5700 /uL (1500-7000); Neutrophils Percent Auto 57.5 % (50-75); Platelet Count 84 X10^3/uL (150-400); Red Blood Cell Count 4.74 X10^6/uL (4.5-5.9); Red Cell Distribution Width 19.2 % (11.6-14.8); White Blood Cell Count 9.9 X10^3/uL (4.5-11.0)
[2023-10-04 06:57] LABS: BUN Creatinine Ratio 23.7 (6-22); Blood Urea Nitrogen 31 mg/dL (9-20); Carbon Dioxide 30 mmol/L (22-32); Chloride 102 mmol/L (98-107); Estimated Glomerular Filt Rate 56 mL/min (>60); HEMOLYSIS 32 (0-50); Potassium 3.9 mmol/L (3.4-5.1); Sodium 137 mmol/L (137-145)
[2023-10-04 07:07] LABS: Glucose 44 mg/dL (80-110)
--- NOTE | 2023-10-04 08:32 | PC.NURSE ---
Transfer efforts continued, update from [place]. Dr. Clark updated.
[2023-10-04] MEDS: carvediloL 3.125 MG TABLET 6.25 MG PO ×2 (08:47→21:01)
[2023-10-04] MEDS: POTASSIUM CHLORIDE 20 MEQ TAB 40 MEQ PO ×2 (08:47→17:37)
[2023-10-04] MEDS: allopurinoL 100 MG TABLET 200 MG PO (08:47)
[2023-10-04] MEDS: FUROSEMIDE 40 MG/4 ML VIAL IV ×2 (08:48→15:02)
[2023-10-04] MEDS: ENOXAPARIN 40 MG/0.4 ML SYRINGE SUBCUT (08:48)
[2023-10-04] MEDS: SODIUM CHLORIDE 0.9% FLUSH 10 ML IV ×2 (08:51→21:01)
[2023-10-04] MEDS: OXYCODONE IR 5 MG TABLET PO ×2 (10:25→21:00)
--- NOTE | 2023-10-04 10:41 | CM.DPNOTE ---
DCP Cont Reviewed chart. Patient discussed in multidisciplinary rounds. Patient awaiting transfer for cardiology. CM team following clinical course closely in case any discharge needs or concerns arise. BERENICE
[2023-10-04] MEDS: INSULIN LISPRO 100 UNIT/ML 3ML VIAL SUBCUT ×2 (12:30→21:03)
[2023-10-04] MEDS: ACETAMINOPHEN 325 MG TABLET 650 MG PO (15:04)
--- NOTE | 2023-10-04 16:46 | P.CONS_ITS ---
History of Present Illness Consult details Date Patient Seen: 10/04/23 Time Patient Seen: 16:00 Chief complaint: sob Narrative: The patient is a 77-year-old male with type 2 diabetes mellitus, CAD, and CHF who was admitted to the hospital October 02 2023 with exacerbation of CHF. He is followed at the wound center for treatment of diabetic ulcers on the right great toe and left 3rd toe. Bone scan done at [facility] reportedly showed chronic osteomyelitis. Arterial Doppler revealed multiphasic waveforms with no hemodynamically significant stenosis. Cultures from the right foot have grown Pseudomonas aeruginosa. Most recently the patient has been receiving dressing changes with Iodoflex as well as cefepime 2 g IV Q 8 hours under the care of Dr. Bird. The patient denies having any pain or discomfort associated with ulcers nor has he had any recent fever or chills. He reports a good appetite and good control of blood sugars. Echocardiogram done this admission revealed ejection fraction down to 10% with global hypokinesis. Arrangements have been made for the patient to be transferred to [facility] in the near future for further evaluation and treatment of his congestive heart failure. Meds Home Medications and Allergies Home Medications Medication Instructions Recorded Confirmed Type CHOLECALCIFEROL (VITAMIN D3) 1 tab PO DAILY ##0 12/04/06 10/02/23 History (Vitamin D3) MULTIVITAMIN (Multivitamin 1 spray PO DAILY ##0 12/04/06 10/02/23 History -) allopurinol 300 mg tablet 300 mg PO DAILY 05/21/20 10/02/23 History carvedilol 6.25 mg tablet 6.25 mg PO BID 05/21/20 10/02/23 History empagliflozin 10 mg tablet 10 mg PO DAILY 05/21/20 10/02/23 History (Jardiance) glimepiride 4 mg tablet 4 mg PO DAILY 05/21/20 10/02/23 History furosemide 20 mg tablet 20 mg PO DAILY 04/08/21 10/02/23 History losartan 25 mg tablet 12.5 mg PO DAILY 04/08/21 10/02/23 History metformin 500 mg tablet 500 mg PO DAILY 04/08/21 10/02/23 History aspirin 81 mg tablet,delayed 81 mg PO BEDTIME 10/02/23 10/02/23 History release atorvastatin 40 mg tablet 20 mg PO DAILY cholesterol 10/02/23 10/02/23 History cholecalciferol (vitamin D3) 125 125 mcg PO DAILY 10/02/23 10/02/23 History mcg (5,000 unit) tablet (Vitamin D3) coenzyme Q10 100 mg capsule 200 mg PO DAILY 10/02/23 10/02/23 History (CoQ-10) folic acid 400 mcg tablet 0.4 mg PO DAILY 10/02/23 10/02/23 History insulin glargine 100 unit/mL (3 20 unit SUBCUT BID 10/02/23 10/02/23 History mL) subcutaneous pen (Lantus Solostar U-100 Insulin) magnesium glycinate 100 mg tablet 400 mg PO BEDTIME 10/02/23 10/02/23 History montelukast 10 mg tablet 10 mg PO BEDTIME 10/02/23 10/02/23 History (Singulair) omeprazole 20 mg tablet,delayed 20 mg PO BID 10/02/23 10/02/23 History release vitamin B complex 1 tab PO BEDTIME 10/02/23 10/02/23 History Allergies Allergy/AdvReac Type Severity Reaction Status Date / Time No Known Drug Allergies Allergy Verified 10/02/23 09:38 Review of Systems Constitutional Comments: Positive for fatigue and lethargy Cardiovascular Comments: No chest pain Respiratory Comments: Shortness of breath Exam Vital Signs (past 8 hours): - 10/04/23 08:47 10/04/23 08:53 10/04/23 10:02 Pulse Rate 77 70 Blood Pressure 113/70 102/66 Pulse Oximetry 98 Oxygen Delivery Method Nasal Cannula Oxygen Flow Rate 2 10/04/23 12:00 Pulse Rate 79 Blood Pressure 111/62 Pulse Oximetry 100 Oxygen Delivery Method Oxygen Flow Rate Fraction of Inspired Oxygen 36 SaO2/FiO2 Ratio 277 Oxygen Delivery Method Nasal Cannula Oxygen Flow Rate 2 Const Other: Well-developed well-nourished male who is alert and oriented and in no apparent distress Resp Other: Unlabored Skin Other: Diabetic ulcer tip of right great toe with some surrounding callous, faint erythema, no drainage noted. Diabetic ulcer dorsum left 3rd toe appears improved, no sign of acute infection. Neuro Other: Decreased lower extremity sensation Objective Labs 10/04/23 06:28 10/04/23 06:28 Labs: Laboratory Results - last 24 hr 10/04/23 06:28 WBC 9.9 RBC 4.74 Hgb 10.2 L Hct 33.8 L MCV 71.3 L MCH 21.6 L MCHC 30.3 RDW 19.2 H Plt Count 84 L Neut % (Auto) 57.5 Lymph % (Auto) 29.5 [place] % (Auto) 10.1 Eos % (Auto) 1.8 L Baso % (Auto) 1.1 Neut # (Auto) 5700 Lymph # (Auto) 2900 [place] # (Auto) 1000 H Eos # (Auto) 200 Baso # (Auto) 100 Sodium 137 Potassium 3.9 Chloride 102 Carbon Dioxide 30 BUN 31 H Creatinine 1.31 H Estimated GFR 56 L BUN/Creatinine Ratio 23.7 H Glucose 44 L* Calcium 9.0 PFSH Social History household members: spouse Tobacco & Substance Use Smoking Status: Former smoker alcohol intake: current Assessment & Plan Assessment and plan (1) Non-pressure chronic ulcer of other part of right foot with fat layer exposed: Status: Acute (2) Non-pressure chronic ulcer of other part of left foot with fat layer exposed: Status: Acute (3) Type 2 diabetes mellitus with foot ulcer: Status: Acute (4) Other acute osteomyelitis, right ankle and foot: Status: Acute Assessment & Plan narrative: Diabetic ulcers right great toe and left 3rd toe appear to be stable or possibly slightly improved. Recommend continuing dressing changes with Iodoflex, pressure offloading with postop surgical shoes, continue antibiotic therapy for treatment of osteomyelitis, follow up at wound center after discharge. Time-Based Coding :: [50 MINUTES] spent with patient and on the chart (including review of chart, obtaining history, exam, reviewing outside data, placing orders, documenting exam and treatment plan, and counseling patient) on [10/04/23].
--- NOTE | 2023-10-04 20:34 | PM.PN.1 ---
Subjective Subjective Date Patient Seen: 10/04/23 Time Patient Seen: 09:00 Interval history: CC: weak, short of breath Although he has been accepted at several facilities we remain stymied for transfer by bed availability. His status remains about the same regarding exertion and ability to do anything other than remain still and seated upright. Appetite is minimal. Still on 2L via [place]. Plan is tomorrow if unable to secure transfer, plan for safe dc with home O2 and close outpatient follow up and ID plan for foot. He is tired and fatigued and frustrated at being stuck in a holding pattern like this. Goal is a good night of uninterrupted sleep tonight. Exam Vital Signs (past 8 hours): - 10/04/23 16:00 Temperature 97 F L Pulse Rate 80 Respiratory Rate 18 Blood Pressure 105/54 L Pulse Oximetry 100 Fraction of Inspired Oxygen 36 SaO2/FiO2 Ratio 277 Oxygen Delivery Method Nasal Cannula Oxygen Flow Rate 2 Narrative Exam Narrative: seated upright, looks tired Resp Other: clear to auscultation bilaterally Cardio Other: regular rate, soft heart sounds, carotid waveform GI Other: soft nontender active bowel sounds Neuro Other: alert awake oriented x3 moving all limbs Extrem Other: 2+ pitting edema bilaterally Objective Labs 10/04/23 06:28 10/04/23 06:28 Labs: Laboratory Results - last 24 hr 10/04/23 06:28 WBC 9.9 RBC 4.74 Hgb 10.2 L Hct 33.8 L MCV 71.3 L MCH 21.6 L MCHC 30.3 RDW 19.2 H Plt Count 84 L Neut % (Auto) 57.5 Lymph % (Auto) 29.5 [place] % (Auto) 10.1 Eos % (Auto) 1.8 L Baso % (Auto) 1.1 Neut # (Auto) 5700 Lymph # (Auto) 2900 [place] # (Auto) 1000 H Eos # (Auto) 200 Baso # (Auto) 100 Sodium 137 Potassium 3.9 Chloride 102 Carbon Dioxide 30 BUN 31 H Creatinine 1.31 H Estimated GFR 56 L BUN/Creatinine Ratio 23.7 H Glucose 44 L* Calcium 9.0 PFSH Social History household members: spouse Smoking Status: Former smoker alcohol intake: current Assessment & Plan Assessment & Plan narrative: #acute on chronic systolic and diastolic congestive heart failure #hx of coronary stents EF of <10% is new and could certainly explain presentation, would certainly benefit from higher level of care with cardiology support, attempts to arrange transfer are ongoing. diuresing with lasix iv well, hold at night for sleep. #osteomyelitis of L hallux and L 3rd toe S/p 5 weeks tx with IV cefepime Over that time they have both improved dramatically however they feel this has coincided with the time of Don's acute decline Holding cefepime for now he does seem a little bit better, wound care consulted, consider shift to oral therapy Sees Dr. Rivas outpt for this, continue pain control #Insulin-dependent Type 2 diabetes with hyperglycemia continue home regimen with SSI and fingersticks #hx of sacral pressure ulcer pressure mattress ordered Dispo: accepted at [facility] [place], no beds available PCP: Amber Code: full Diet: heart healthy/diabetic MDM: Time-Based Coding :: [TOTAL MINUTES] spent with patient and on the chart (including review of chart, obtaining history, exam, reviewing outside data, placing orders, documenting exam and treatment plan, and counseling patient) on [DATE].
[2023-10-04] MEDS: OXYCODONE IR 10 MG TABLET PO (23:14)
--- NOTE | 2023-10-05 09:10 | CM.DPNOTE ---
Post Discharge TC Call received from [place] at [facility]; [facility] had been following patient before admission for outpatient IV abx with SAMANTHA Ruggiero, managing these orders. Patient had an appt with Dr Bird today and did not arrive. Updated [facility] that patient transferred to [facility] yesterday. BERENICE
--- NOTE | 2023-10-15 07:44 | PC.WOUNDPHOT ---
Late Entry: Photos taken 10/03 at 1745.
== END 2023-10-04 23:45 | disposition short-term general hospital (02) | DRG 291 ==
LOC: ED 12:36 → AC 12:51
PROVIDERS: Internal Medicine; Admitting Provider Family Medicine; Emergency Provider Emergency Medicine; Family Provider Family Medicine; PCP Family Medicine; Visit Provider Family Medicine
DX: I11.0 Hypertensive heart disease with heart failure (principal); I50.23 Acute on chronic systolic (congestive) heart failure; I47.20 Ventricular tachycardia, unspecified; M86.8X7 Other osteomyelitis, ankle and foot; E87.6 Hypokalemia; E11.65 Type 2 diabetes mellitus with hyperglycemia; I25.10 Atherosclerotic heart disease of native coronary artery without angina pectoris; K21.9 Gastro-esophageal reflux disease without esophagitis; E11.621 Type 2 diabetes mellitus with foot ulcer; L97.522 Non-pressure chronic ulcer of other part of left foot with fat layer exposed; L97.512 Non-pressure chronic ulcer of other part of right foot with fat layer exposed; Z79.4 Long term (current) use of insulin; Z95.5 Presence of coronary angioplasty implant and graft; Z87.891 Personal history of nicotine dependence
CPT/HCPCS: 0241U; 36415; 36592; 71045; 80048; 80053; 82550; 82962; 83690; 83735; 83880; 84145; 84484; 85025; 85610; 85730; 93005; 93010; 94760; 96365; 99284; 99285; C8929; J0692; J1650; J1940; J2405; Q9957

== ENCOUNTER → 2023-10-17 13:13 | Outpatient (CLI) | payer MEDICARE, OTHER, SELFPAY ==
[2023-10-02 13:45] VITALS: BMI 28.7
== END ==
LOC: WC 13:19
PROVIDERS: Family Provider Family Medicine; PCP Family Medicine; Referring Provider Family Medicine; Visit Provider Surgery
DX: E11.621 Type 2 diabetes mellitus with foot ulcer (principal); L97.512 Non-pressure chronic ulcer of other part of right foot with fat layer exposed; L97.522 Non-pressure chronic ulcer of other part of left foot with fat layer exposed; R60.0 Localized edema; L84 Corns and callosities; R23.3 Spontaneous ecchymoses
CPT/HCPCS: 11042

== ENCOUNTER → 2023-10-24 11:06 | Outpatient (CLI) | payer MEDICARE, OTHER, SELFPAY ==
[2023-10-02 13:45] VITALS: BMI 28.7
== END ==
PROVIDERS: Family Provider Family Medicine; PCP Family Medicine; Referring Provider Family Medicine; Visit Provider Surgery
DX: E11.621 Type 2 diabetes mellitus with foot ulcer (principal); L97.512 Non-pressure chronic ulcer of other part of right foot with fat layer exposed; L97.522 Non-pressure chronic ulcer of other part of left foot with fat layer exposed; R60.0 Localized edema; L84 Corns and callosities; R23.3 Spontaneous ecchymoses
CPT/HCPCS: 11042

== ENCOUNTER → 2023-10-31 13:53 | Outpatient (CLI) | payer MEDICARE, OTHER, SELFPAY ==
[2023-10-02 13:45] VITALS: BMI 28.7
== END ==
PROVIDERS: Family Provider Family Medicine; PCP Family Medicine; Referring Provider Family Medicine; Visit Provider Surgery
DX: E11.621 Type 2 diabetes mellitus with foot ulcer (principal); L97.512 Non-pressure chronic ulcer of other part of right foot with fat layer exposed; L97.522 Non-pressure chronic ulcer of other part of left foot with fat layer exposed; R60.0 Localized edema; E11.42 Type 2 diabetes mellitus with diabetic polyneuropathy; L53.9 Erythematous condition, unspecified; L84 Corns and callosities; R23.3 Spontaneous ecchymoses
CPT/HCPCS: 11042; 87070; 87075; 87205

== ENCOUNTER → 2023-11-07 11:39 | Outpatient (CLI) | payer MEDICARE, OTHER, SELFPAY ==
[2023-10-02 13:45] VITALS: BMI 28.7
== END ==
PROVIDERS: Family Provider Family Medicine; PCP Family Medicine; Referring Provider Family Medicine; Visit Provider Surgery
DX: E11.621 Type 2 diabetes mellitus with foot ulcer (principal); L97.512 Non-pressure chronic ulcer of other part of right foot with fat layer exposed; L97.522 Non-pressure chronic ulcer of other part of left foot with fat layer exposed; L84 Corns and callosities; R60.0 Localized edema; L53.9 Erythematous condition, unspecified
CPT/HCPCS: 11042; 99213

== ENCOUNTER → 2023-11-14 11:11 | Outpatient (CLI) | payer MEDICARE, OTHER, SELFPAY ==
[2023-10-02 13:45] VITALS: BMI 28.7
== END ==
LOC: WC 11:16
PROVIDERS: Family Provider Family Medicine; PCP Family Medicine; Referring Provider Family Medicine; Visit Provider Surgery
DX: E11.621 Type 2 diabetes mellitus with foot ulcer (principal); L97.512 Non-pressure chronic ulcer of other part of right foot with fat layer exposed; L97.522 Non-pressure chronic ulcer of other part of left foot with fat layer exposed; L84 Corns and callosities; R60.0 Localized edema; M86.171 Other acute osteomyelitis, right ankle and foot; R21 Rash and other nonspecific skin eruption
CPT/HCPCS: 11042; 87070; 87075; 87186; 87205; 99213

== ENCOUNTER → 2023-11-21 13:50 | Outpatient (CLI) | payer MEDICARE, OTHER, SELFPAY ==
[2023-10-02 13:45] VITALS: BMI 28.7
== END ==
PROVIDERS: Family Provider Family Medicine; PCP Family Medicine; Referring Provider Family Medicine; Visit Provider Surgery
DX: E11.621 Type 2 diabetes mellitus with foot ulcer (principal); E11.42 Type 2 diabetes mellitus with diabetic polyneuropathy; L97.512 Non-pressure chronic ulcer of other part of right foot with fat layer exposed; L97.522 Non-pressure chronic ulcer of other part of left foot with fat layer exposed; L84 Corns and callosities; R60.0 Localized edema; L53.9 Erythematous condition, unspecified; Z79.2 Long term (current) use of antibiotics
CPT/HCPCS: 11042; 99213

== ENCOUNTER → 2023-11-28 13:02 | Outpatient (CLI) | payer MEDICARE, OTHER, SELFPAY ==
[2023-10-02 13:45] VITALS: BMI 28.7
== END ==
PROVIDERS: Family Provider Family Medicine; PCP Family Medicine; Referring Provider Family Medicine; Visit Provider Surgery
DX: L97.512 Non-pressure chronic ulcer of other part of right foot with fat layer exposed (principal); E11.621 Type 2 diabetes mellitus with foot ulcer; L97.522 Non-pressure chronic ulcer of other part of left foot with fat layer exposed; R60.0 Localized edema; L53.9 Erythematous condition, unspecified; L84 Corns and callosities; L98.8 Other specified disorders of the skin and subcutaneous tissue
CPT/HCPCS: 11042; 99213

== ENCOUNTER → 2023-12-05 13:56 | Outpatient (CLI) | payer MEDICARE, OTHER, SELFPAY ==
[2023-10-02 13:45] VITALS: BMI 28.7
== END ==
LOC: WC 13:59
PROVIDERS: Family Provider Family Medicine; PCP Family Medicine; Referring Provider Family Medicine; Visit Provider Surgery
DX: L97.512 Non-pressure chronic ulcer of other part of right foot with fat layer exposed (principal); L97.522 Non-pressure chronic ulcer of other part of left foot with fat layer exposed; E11.621 Type 2 diabetes mellitus with foot ulcer; R60.0 Localized edema; L84 Corns and callosities
CPT/HCPCS: 11042; 99212; 99213

== ENCOUNTER → 2023-12-12 11:15 | Outpatient (CLI) | payer MEDICARE, OTHER, SELFPAY ==
[2023-10-02 13:45] VITALS: BMI 28.7
== END ==
LOC: WC 11:16
PROVIDERS: Family Provider Family Medicine; PCP Family Medicine; Referring Provider Family Medicine; Visit Provider Surgery
DX: L97.512 Non-pressure chronic ulcer of other part of right foot with fat layer exposed (principal); L97.522 Non-pressure chronic ulcer of other part of left foot with fat layer exposed; E11.621 Type 2 diabetes mellitus with foot ulcer; L84 Corns and callosities; R60.0 Localized edema; E11.42 Type 2 diabetes mellitus with diabetic polyneuropathy
CPT/HCPCS: 11042

== ENCOUNTER → 2023-12-19 11:43 | Outpatient (CLI) | payer MEDICARE, OTHER, SELFPAY ==
[2023-10-02 13:45] VITALS: BMI 28.7
== END ==
LOC: WC 11:44
PROVIDERS: Family Provider Family Medicine; PCP Family Medicine; Referring Provider Family Medicine; Visit Provider Surgery
DX: E11.621 Type 2 diabetes mellitus with foot ulcer (principal); L97.522 Non-pressure chronic ulcer of other part of left foot with fat layer exposed; L97.516 Non-pressure chronic ulcer of other part of right foot with bone involvement without evidence of necrosis; L84 Corns and callosities; R60.0 Localized edema; M86.171 Other acute osteomyelitis, right ankle and foot
CPT/HCPCS: 11042

== ENCOUNTER → 2023-12-26 11:00 | Outpatient (CLI) | payer MEDICARE, OTHER, SELFPAY ==
[2023-10-02 13:45] VITALS: BMI 28.7
== END ==
LOC: WC 11:01
PROVIDERS: Family Provider Family Medicine; PCP Family Medicine; Referring Provider Family Medicine; Visit Provider Surgery
DX: E11.621 Type 2 diabetes mellitus with foot ulcer (principal); L97.516 Non-pressure chronic ulcer of other part of right foot with bone involvement without evidence of necrosis; L97.526 Non-pressure chronic ulcer of other part of left foot with bone involvement without evidence of necrosis; R60.0 Localized edema; L84 Corns and callosities; L98.8 Other specified disorders of the skin and subcutaneous tissue
CPT/HCPCS: 11042

== ENCOUNTER → 2024-01-02 11:11 | Outpatient (CLI) | payer MEDICARE, OTHER, SELFPAY ==
[2023-10-02 13:45] VITALS: BMI 28.7
== END ==
PROVIDERS: Family Provider Family Medicine; PCP Family Medicine; Referring Provider Family Medicine; Visit Provider Surgery
DX: E11.621 Type 2 diabetes mellitus with foot ulcer (principal); L97.516 Non-pressure chronic ulcer of other part of right foot with bone involvement without evidence of necrosis; L97.526 Non-pressure chronic ulcer of other part of left foot with bone involvement without evidence of necrosis; L84 Corns and callosities; R60.0 Localized edema; M86.68 Other chronic osteomyelitis, other site
CPT/HCPCS: 11042; 99212; 99213

== ENCOUNTER → 2024-01-09 10:49 | Outpatient (CLI) | payer MEDICARE, OTHER, SELFPAY ==
[2023-10-02 13:45] VITALS: BMI 28.7
== END ==
PROVIDERS: Family Provider Family Medicine; PCP Family Medicine; Referring Provider Family Medicine; Visit Provider Surgery
DX: E11.621 Type 2 diabetes mellitus with foot ulcer (principal); L97.516 Non-pressure chronic ulcer of other part of right foot with bone involvement without evidence of necrosis; L97.526 Non-pressure chronic ulcer of other part of left foot with bone involvement without evidence of necrosis; L84 Corns and callosities; R60.0 Localized edema
CPT/HCPCS: 11042